=== PATIENT | female | born 1960 | race Two or more races ===

== ENCOUNTER → 2020-10-27 08:35 | Outpatient (BNVA) | payer OTHER, SELFPAY | PROVIDERS: PCP Internal Medicine; Visit Provider Internal Medicine ==

== ENCOUNTER 2020-11-26 07:04 | Outpatient (REF) | payer MEDICARE, SELFPAY | END 2020-11-26 07:05 | disposition home or self-care (01) | LOC: HO.RADIR 07:04 | PROVIDERS: Visit Provider Internal Medicine | DX: Z13.89 Encounter for screening for other disorder (principal) ==

== ENCOUNTER 2020-11-26 12:59 | Day surgery (SDC) | payer MEDICARE, SELFPAY ==
--- NOTE | ~2020-11-26 | FL_ITS ---
EXAMINATION: XR FLUOROSCOPY WITH IMAGES CLINICAL INFORMATION: Epidural steroid injection. COMPARISON: None. TECHNIQUE: Fluoroscopy performed by Dr. Arvind Benitez. Fluoroscopy time: 0.6 minutes DAP: 9.95 mGycm2 Images: 3 FINDINGS: There is needle positioned along the tip of the sacral bone with with opacification of the right L5-S1 epidural space. FL/FL guidance in OR IMPRESSION: Fluoroscopy was provided to referring physician for pain management.
--- NOTE | 2020-11-26 13:16 | HO.ANESPROP2 ---
HPI - Anesthesia Eval Consult details Narrative: 60 yo female patient for epidural steroid injection PMFSH Active Problems Active Problems: All Active Problems (Updated 10/27/20 @ 10:21 by Arvind Diamond MD) Lumbar post-laminectomy syndrome (Acute) MAK on COAP Morbid obesity Diabetes Hypertension On lisinopril for renal protection Anxiety Back pain- difficulty ambulating Right sciatica H/o covid 02/2020 Covid vaccines 05/2020 Past Medical History Medical History (Updated 11/26/20 @ 14:55 by Isabell Barrera MD) Anxiety COVID Diabetes HTN (hypertension) Lumbar post-laminectomy syndrome MAK on CPAP Sleep apnea Family History Family history of problems with anesthesia: No Surgical History History of Problems with Anesthesia: No Social History Social History Patient Tobacco Use Status: Never used Tobacco Use of substances other than those prescribed or required for medical reasons: No Are you DNR?: No Advance Directives: No Advance Directives Information Provided: Yes Advance Directives on File: No Recently lost weight without trying: No Nutrition Risks: No Nutritional Risk Meds Allergies Allergy/AdvReac Type Severity Reaction Status Date / Time metformin AdvReac Severe GI upset Verified 10/27/20 08:44 liraglutide [From Victoza] AdvReac Intermediate GI upset Verified 10/27/20 08:44 Active Medications: Current Medications Lactated Ringer's (Lr) 1,000 mls @ 100 mls/hr IVCONT .Q10H MORRO Home Medications Medication Instructions Recorded Confirmed Last Taken Type gabapentin 300 mg capsule 300 mg PO QID 10/27/20 10/27/20 Unknown History hydrochlorothiazide 25 mg tablet 25 mg PO DAILY 10/27/20 10/27/20 Unknown History ibuprofen 800 mg tablet 800 mg PO Q8H PRN 10/27/20 10/27/20 Unknown History insulin glargine 100 unit/mL 75 unit SUBCUT DAILY ml 10/27/20 10/27/20 Unknown History subcutaneous solution (Lantus U-100 Insulin) insulin lispro 100 unit/mL 15 unit SUBCUT 10/27/20 10/27/20 Unknown History subcutaneous pen (Humalog KwikPen (U-100) Insulin) lisinopril 10 mg tablet 10 mg PO DAILY 10/27/20 10/27/20 Unknown History loratadine 10 mg tablet 10 mg PO DAILY 10/27/20 10/27/20 Unknown History oxycodone 10 mg tablet 10 mg PO QID PRN 10/27/20 10/27/20 Unknown History sertraline 100 mg tablet 100 mg PO DAILY 10/27/20 10/27/20 Unknown History trazodone 100 mg tablet 200 mg PO BEDTIME 10/27/20 10/27/20 Unknown History Exam Exam Date and Time: November 26, 2020 1316 n Height,Weight and Vital Signs: Height 5 ft 4 in Weight 127.006 kg Vital Signs Temp Pulse Resp BP Pulse Ox 97.0 F 66 16 143/63 H 96 11/26/20 13:30 11/26/20 13:30 11/26/20 13:30 11/26/20 13:30 11/26/20 13:30 Pertinent Lab Results Pertinent Lab Results: Lab Results 11/26/20 Range/Units 13:17 POC Glucose 174 H (60-115) mg/dL Airway Mallampati Class: II TM Dist: >3cm Neck ROM: Full Loose/Missing/Broken Teeth: Yes (Missing back) Heart: RRR Lungs: CTAB Assessment and Plan Assessment Anesthesia Assessment: Anesthesia Plan Discussed and Chart Reviewed Final Anesthetic Review Family History of Problems with Anesthesia: No History of Problems with Anesthesia: No NPO: Yes ASA Class: III Final Preanesthetic Review: No Changes in Pt Med Stat, Meds/Allgs Chart Reviewed, Consent Obtained/Reviewed and Anes Risks/Benef Reviewed Patient Risk: Intermediate Procedure Risk: Low Assessment/Block/Sedation in SS: Assess/Block/Sedation-SS Anesthetic Plan Anesthetic Plan: MAC: Disposition: Standard PACU
[2020-11-26 13:20] LABS: Glucose, Whole Blood 174 mg/dL (60-115)
[2020-11-26 13:22] VITALS: BMI 48.0
[2020-11-26 13:30] VITALS: BP 143/63; PULSE 66; RESP 16; TEMP 36.1; O2SAT 96
--- NOTE | 2020-11-26 13:42 | MHC.SHP ---
Pre-Procedural Eval Section A Date of Service: 11/26/20 The patient is an INPATIENT: No The History & Physical has been completed within 30 days and I have reviewed it.: Yes Section B Chief Complaint: postlaminectomy syndrome Relevant Family History (Specify if Yes): No Present Medications: see Short Stay Collaborative assessment Allergies: Allergies Allergy/AdvReac Type Severity Reaction Status Date / Time metformin AdvReac Severe GI upset Verified 10/27/20 08:44 liraglutide [From Victoza] AdvReac Intermediate GI upset Verified 10/27/20 08:44 Plan Diagnosis/Plan: Unchanged I have reviewed the history and physical and performed a pertinent. physical examination on my patient. No changes have occurred unless specified. Proceed with caudal epidural steroid injection with catheter.
--- NOTE | 2020-11-26 13:56 | P.OP_ITS ---
Operative Note Operative Note Date of Service: 11/26/20 Narrative: Caudal JAKE with catheter After obtaining written consent, pre-procedure blood pressure and pulse were measured. Standard monitors were applied. The patient was placed in the prone position sedated under MAC. The lumbosacral area was widely prepped with chloraprep and draped in sterile fashion. The skin overlying the target was anesthetized with 0.5% lidocaine. A 17 G needle was used to access the caudal ep idural space using anatomic landmarks and x-ray guidance. We then threaded a catheter up to the L5/S1 level and injected contrast 1cc omnipaque 180 for verification of epidural spread, primarily on the right as intended. Following negative aspiration of heme or CSF, a mixture of 5 ml 0.5% lidocaine with 80 mg methylprednisolone was injected very slowly into the epidural space. Patient discomfort noted during injection but able to deliver the complete injectate. The needle was removed, skin cleansed and a sterile bandage was applied. The patient tolerated the procedure well and no complications were encountered. Following the procedure the patient was awakeend and patient's vital signs were stable. She was brought to PACU in stable condition. The patient was discharged home in good condition with post-procedural instructions. Time Out: Immediately prior to the procedure, the following was verbally confirmed that there is a signed consent form and that the correct patient, planned procedure, site and side are consistent with documentation and that necessary equipment and/or blood products are available prior to the start of the case. Complications: none EBL: <5 cc
--- NOTE | 2020-11-26 13:56 | PM.OP ---
Brief Operative Note Date of Service: 11/26/20 Pre-op diagnosis: Post-laminectomy syndrome Post-op diagnosis: same Procedure: Caudal epidural catheter injection with catheter Surgeon: Arvind Diamond MD Anesthesia: MAC Was an Nursing Home Assistant Administrator used for this Procedure?: No Estimated blood loss (mL): 1 Condition: stable Disposition: PACU
[2020-11-26] MEDS: Lactated Ringers 1,000 ML 100 ML IVCONT (13:59)
[2020-11-26 14:40] VITALS: BP 151/61; PULSE 71; RESP 20; TEMP 36.2; O2SAT 97
[2020-11-26 14:55] VITALS: BP 154/50; PULSE 68; RESP 20; O2SAT 96
[2020-11-26 15:10] VITALS: BP 137/45; PULSE 66; RESP 22; O2SAT 97
[2020-11-26 15:25] VITALS: BP 121/59; PULSE 62; RESP 20; O2SAT 96
[2020-11-26] MEDS: oxyCODONE HCl Immed Release 5 MG TABLET 10 MG PO (15:39)
[2020-11-26] MEDS: Acetaminophen 325 MG TABLET 650 MG PO (15:40)
--- NOTE | 2020-11-26 15:46 | PC.NURSE ---
Pt assisted to chair, getting dressed with plan to go home Increased pain to right posterior to right lateral and posterior knee Medicated for pain with oxycodone and tylenol, see MAR
== END 2020-11-26 16:05 | disposition home or self-care (01) ==
PROVIDERS: PCP Internal Medicine; Visit Provider Internal Medicine
PROC: 3E0R33Z Introduction of Anti-inflammatory into Spinal Canal, Percutaneous Approach (ICD-10-PCS; CPT 62323; principal; 2020-11-26 14:50)
DX: M96.1 Postlaminectomy syndrome, not elsewhere classified (principal); E11.9 Type 2 diabetes mellitus without complications; Z79.4 Long term (current) use of insulin
CPT/HCPCS: 62323; 82947; J1040; J2250; J3010; Q9967

== ENCOUNTER → 2021-01-02 11:25 | Outpatient (BNVA) | payer MEDICARE, SELFPAY | PROVIDERS: PCP Internal Medicine; Visit Provider Internal Medicine | DX: M96.1 Postlaminectomy syndrome, not elsewhere classified (principal) | CPT/HCPCS: 99212 ==

== ENCOUNTER 2021-01-28 12:31 | Day surgery (SDC) | payer MEDICARE, SELFPAY ==
--- NOTE | 2021-01-27 09:04 | P.CONAN_ITS ---
Documented by User: Remedios Klein NP 01/27/21 09:04 HPI - Anesthesia Eval Consult details Narrative: 60yo F for Caudal Epidural Steroid Injection with Catheter s/p epidural injection 11/2020 with MAC PMFSH Active Problems Active Problems: All Active Problems (Updated 11/26/20 @ 14:55 by Isabell Barrera MD) Lumbar post-laminectomy syndrome (Acute) Past Medical History Medical History (Updated 11/26/20 @ 14:55 by Isabell Barrera MD) Anxiety COVID Diabetes HTN (hypertension) Lumbar post-laminectomy syndrome MAK on CPAP Sleep apnea Family History Family history of problems with anesthesia: No Surgical History History of Problems with Anesthesia: No Social History Social History Patient Tobacco Use Status: Never used Tobacco Use of substances other than those prescribed or required for medical reasons: No Are you DNR?: No Advance Directives: No Advance Directives Information Provided: Yes Meds Allergies Allergy/AdvReac Type Severity Reaction Status Date / Time metformin AdvReac Severe GI upset Verified 01/02/21 11:33 liraglutide [From Victoza] AdvReac Intermediate GI upset Verified 01/02/21 11:33 Home Medications Medication Instructions Recorded Confirmed Last Taken Type gabapentin 300 mg capsule 300 mg PO QID 10/27/20 10/27/20 Unknown History hydrochlorothiazide 25 mg tablet 25 mg PO DAILY 10/27/20 10/27/20 Unknown History ibuprofen 800 mg tablet 800 mg PO Q8H PRN 10/27/20 10/27/20 Unknown History insulin glargine 100 unit/mL 75 unit SUBCUT DAILY ml 10/27/20 10/27/20 Unknown History subcutaneous solution (Lantus U-100 Insulin) insulin lispro 100 unit/mL 15 unit SUBCUT 10/27/20 10/27/20 Unknown History subcutaneous pen (Humalog KwikPen (U-100) Insulin) lisinopril 10 mg tablet 10 mg PO DAILY 10/27/20 10/27/20 Unknown History loratadine 10 mg tablet 10 mg PO DAILY 10/27/20 10/27/20 Unknown History oxycodone 10 mg tablet 10 mg PO QID PRN 10/27/20 10/27/20 11/26/20 11:00 History sertraline 100 mg tablet 100 mg PO DAILY 10/27/20 10/27/20 Unknown History trazodone 100 mg tablet 200 mg PO BEDTIME 10/27/20 10/27/20 Unknown History Exam Exam Date and Time: January 27, 2021 0904 Assessment and Plan Assessment Anesthesia Assessment: Chart Reviewed Final Anesthetic Review Family History of Problems with Anesthesia: No History of Problems with Anesthesia: No Documented by User: Magaly Walker MD 01/28/21 13:01 [facility] Past Medical History Medical History (Updated 11/26/20 @ 14:55 by Isabell Barrera MD) Anxiety COVID Diabetes HTN (hypertension) Lumbar post-laminectomy syndrome MAK on CPAP Sleep apnea Social History Social History Patient Tobacco Use Status: Never used Tobacco Use of substances other than those prescribed or required for medical reasons: No Are you DNR?: No Advance Directives: No Advance Directives Information Provided: Yes Meds Allergies Allergy/AdvReac Type Severity Reaction Status Date / Time metformin AdvReac Severe GI upset Verified 01/02/21 11:33 liraglutide [From Victoza] AdvReac Intermediate GI upset Verified 01/02/21 11:33 Home Medications Medication Instructions Recorded Confirmed Last Taken Type gabapentin 300 mg capsule 300 mg PO QID 10/27/20 10/27/20 Unknown History hydrochlorothiazide 25 mg tablet 25 mg PO DAILY 10/27/20 10/27/20 Unknown History ibuprofen 800 mg tablet 800 mg PO Q8H PRN 10/27/20 10/27/20 Unknown History insulin glargine 100 unit/mL 75 unit SUBCUT DAILY ml 10/27/20 10/27/20 Unknown History subcutaneous solution (Lantus U-100 Insulin) insulin lispro 100 unit/mL 15 unit SUBCUT 10/27/20 10/27/20 Unknown History subcutaneous pen (Humalog KwikPen (U-100) Insulin) lisinopril 10 mg tablet 10 mg PO DAILY 10/27/20 10/27/20 Unknown History loratadine 10 mg tablet 10 mg PO DAILY 10/27/20 10/27/20 Unknown History oxycodone 10 mg tablet 10 mg PO QID PRN 10/27/20 10/27/20 11/26/20 11:00 History sertraline 100 mg tablet 100 mg PO DAILY 10/27/20 10/27/20 Unknown History trazodone 100 mg tablet 200 mg PO BEDTIME 10/27/20 10/27/20 Unknown History Exam Airway Mallampati Class: III TM Dist: >3cm Neck ROM: Full Heart: rrr Lungs: cta Assessment and Plan Assessment Anesthesia Assessment: Anesthesia Plan Discussed and Chart Reviewed Final Anesthetic Review NPO: Yes ASA Class: III Final Preanesthetic Review: No Changes in Pt Med Stat, Meds/Allgs Chart Reviewed and Consent Obtained/Reviewed Patient Risk: Intermediate Procedure Risk: Intermediate Anesthetic Plan Anesthetic Plan: MAC: Disposition: Standard PACU
[2021-01-28] VITALS (7 sets, daily range): BP systolic 141–168; BP diastolic 39–70; PULSE 56–69; RESP 16–20; TEMP 36.4–37.4; O2SAT 95–100; BMI 48.9
--- NOTE | ~2021-01-28 | FL_ITS ---
EXAMINATION: XR FLUOROSCOPY WITH IMAGES CLINICAL INFORMATION: Caudal epidural with catheter. COMPARISON: Fluoroscopy with images 11/26/2020 TECHNIQUE: Fluoroscopy performed by Dr. Diamond. Fluoroscopy time: 0.5 minutes DAP: 7.25 mGycm2 Images: 1 FINDINGS: There is a catheter is suggested overlying the sacral spinal canal with epidural contrast at the lumbosacral junction. No visible vascular communication. Again, there are changes from prior fusion with bilateral rodding and pedicle screws and intradiscal spacer L4-L5. FL/FL guidance in OR IMPRESSION: Fluoroscopy for pain management procedure.
[2021-01-28 12:56] LABS: Glucose, Whole Blood 181 mg/dL (60-115)
[2021-01-28] MEDS: Lactated Ringers 1,000 ML 100 ML IVCONT (13:29)
--- NOTE | 2021-01-28 15:33 | MHC.SHP ---
Pre-Procedural Eval Section A Date of Service: 01/28/21 The patient is an INPATIENT: No Changes since office visit: Yes Patient answered all questions The History & Physical has been completed within 30 days and I have reviewed it.: No Section B Chief Complaint: Postlaminectomy Syndrome Relevant Family History (Specify if Yes): No Relevant Social History: None Present Medications: see Short Stay Collaborative assessment Medical History: Significant History History of Previous Operations: Relevant previous surgery/procedure and date(s) (Spinal fusion) Allergies: Allergies Allergy/AdvReac Type Severity Reaction Status Date / Time metformin AdvReac Severe GI upset Verified 01/28/21 13:29 liraglutide [From Victoza] AdvReac Intermediate GI upset Verified 01/28/21 13:29 Plan Diagnosis/Plan: Unchanged I have reviewed the history and physical and performed a pertinent physical examination on my patient. No changes have occurred unless specified.
--- NOTE | 2021-01-28 15:34 | P.BOP_ITS ---
Brief Operative Note Date of Service: 01/28/21 Pre-op diagnosis: Post-laminectomy syndrome Post-op diagnosis: same Procedure: Caudal epidural steroid injection with catheter Surgeon: Arvind Diamond MD Anesthesia: MAC Was an Clinical Documentation Specialist used for this Procedure?: No Estimated blood loss (mL): 2 Pathology: none sent Condition: stable Disposition: PACU
--- NOTE | 2021-01-28 15:34 | P.OP_ITS ---
Operative Note Operative Note Date of Service: 01/28/21 Narrative: Caudal JAKE with catheter After obtaining written consent, pre-procedure blood pressure and pulse were measured. Standard monitors were applied. The patient was placed in the prone position sedated under MAC. The lumbosacral area was widely prepped with chloraprep and draped in sterile fashion. The skin overlying the target was anesthetized with 0.5% lidocaine. A 17 G needle was used to access the caudal ep idural space using anatomic landmarks and x-ray guidance. We then threaded a catheter up to the L5/S1 level and injected contrast 1cc omnipaque 180 for verification of epidural spread, primarily on the right as intended. Following negative aspiration of heme or CSF, a mixture of 5 ml 0.5% lidocaine with 80 mg methylprednisolone was injected very slowly into the epidural space. Patient discomfort noted during injection but able to deliver the complete injectate. The needle was removed, skin cleansed and a sterile bandage was applied. The patient tolerated the procedure well and no complications were encountered. Following the procedure the patient was awakeend and patient's vital signs were stable. She was brought to PACU in stable condition. The patient was discharged home in good condition with post-procedural instructions. Time Out: Immediately prior to the procedure, the following was verbally confirmed that there is a signed consent form and that the correct patient, planned procedure, site and side are consistent with documentation and that necessary equipment and/or blood products are available prior to the start of the case. Complications: none EBL: <5 cc
[2021-01-28] MEDS: oxyCODONE HCl Immed Release 5 MG TABLET PO ×2 (15:46→16:19)
[2021-01-28] MEDS: fentaNYL citrate/PF 100 MCG/2 ML VIAL 50 MCG IVPUSH (15:48)
== END 2021-01-28 17:00 | disposition home or self-care (01) ==
PROVIDERS: PCP Internal Medicine; Visit Provider Internal Medicine
PROC: 3E0R3GC Introduction of Other Therapeutic Substance into Spinal Canal, Percutaneous Approach (ICD-10-PCS; CPT 62322; principal; 2021-01-28 14:10)
DX: M54.50 Low back pain, unspecified (principal); M96.1 Postlaminectomy syndrome, not elsewhere classified; I10 Essential (primary) hypertension; E11.9 Type 2 diabetes mellitus without complications; F41.1 Generalized anxiety disorder; G47.33 Obstructive sleep apnea (adult) (pediatric); Z79.4 Long term (current) use of insulin; Z79.899 Other long term (current) drug therapy; Z88.1 Allergy status to other antibiotic agents; Z86.16 Personal history of COVID-19
CPT/HCPCS: 62323; 82947; J1040; J2405; J3010; Q9967

== ENCOUNTER → 2021-03-09 08:07 | Outpatient (BNVA) | payer MEDICARE, SELFPAY | PROVIDERS: PCP Internal Medicine; Visit Provider Internal Medicine | DX: M96.1 Postlaminectomy syndrome, not elsewhere classified (principal) | CPT/HCPCS: 99212 ==

== ENCOUNTER 2021-05-13 06:10 | Outpatient (REF) | payer MEDICARE, SELFPAY ==
--- NOTE | ~2021-05-13 | FL_ITS ---
EXAMINATION: XR FLUOROSCOPY WITH IMAGES CLINICAL INFORMATION: Postlaminectomy syndrome COMPARISON: None. TECHNIQUE: Fluoroscopy performed by Dr. Janie Mendoza Fluoroscopy time: 5.5 minutes DAP: 33.1 Gycm2 Images: 2 FINDINGS: 2 fluoroscopic images of the lower thoracic spine with spinal stimulator in place. FL/FL guidance in treatment room IMPRESSION: Spinal stimulator placement. Please see operative report for further information.
== END 2021-05-13 06:11 | disposition home or self-care (01) ==
LOC: HO.RADIR 06:10
PROVIDERS: Visit Provider Internal Medicine
DX: M96.1 Postlaminectomy syndrome, not elsewhere classified (principal)
CPT/HCPCS: 63650; C1897; J0690

== ENCOUNTER → 2021-05-13 10:00 | Day surgery (SDC) | payer MEDICARE, SELFPAY | PROVIDERS: Visit Provider Internal Medicine | DX: M96.1 Postlaminectomy syndrome, not elsewhere classified (principal); Z53.9 Procedure and treatment not carried out, unspecified reason | CPT/HCPCS: C1816; C1897 ==

== ENCOUNTER → 2021-05-18 15:05 | Outpatient (BNVA) | payer MEDICARE, SELFPAY | PROVIDERS: PCP Internal Medicine; Visit Provider Anesthesiology | DX: Z13.89 Encounter for screening for other disorder (principal) ==

== ENCOUNTER 2021-07-29 10:48 | Day surgery (SDC) | payer MEDICARE, SELFPAY ==
[2021-07-23 11:27] VITALS: BMI 49.2
[2021-07-23 13:52] VITALS: BMI 48.9
--- NOTE | 2021-07-28 08:46 | HO.ANESPROP2 ---
Documented by User: Remedios Klein NP 07/28/21 08:47 HPI - Anesthesia Eval Consult details Narrative: 60yo F for Lumbar Spinal Stimulation Implant s/p caudal steroid injection 01/2021 with MAC PMFSH Active Problems Active Problems: All Active Problems (Updated 07/23/21 @ 13:57 by Gila Reyez, RN) Lumbar post-laminectomy syndrome (Acute) Past Medical History Medical History Anxiety Arthritis Back pain COVID Diabetes HTN (hypertension) Insomnia Lumbar post-laminectomy syndrome MAK on CPAP Sleep apnea Use of cane as ambulatory aid Family History Family History (Updated 07/23/21 @ 13:56 by Gila Reyez, MARIAM) Mother PONV (postoperative nausea and vomiting) Family history of problems with anesthesia: No Surgical History Surgical History History of back surgery History of total right knee replacement Hx of colonoscopy Hx of tubal ligation History of Problems with Anesthesia: No Social History Social History Patient Tobacco Use Status: Never used Tobacco Use of substances other than those prescribed or required for medical reasons: No Are you DNR?: No Advance Directives: No Advance Directives Information Provided: Yes Advance Directives on File: No Meds Allergies Allergy/AdvReac Type Severity Reaction Status Date / Time metformin AdvReac Severe GI upset Verified 07/29/21 11:15 liraglutide [From Victoza] AdvReac Intermediate GI upset Verified 07/29/21 11:15 Home Medications Medication Instructions Recorded Confirmed Last Taken Type gabapentin 300 mg capsule 300 mg PO QID 10/27/20 07/23/21 01/28/21 09:00 History hydrochlorothiazide 25 mg tablet 25 mg PO DAILY 10/27/20 07/23/21 Unknown History ibuprofen 800 mg tablet 800 mg PO Q8H PRN 10/27/20 07/23/21 07/26/21 History insulin glargine 100 unit/mL 76 unit SUBCUT BEDTIME ml 10/27/20 07/23/21 01/27/21 19:00 History subcutaneous solution (Lantus 76 units U-100 Insulin) insulin lispro 100 unit/mL 15 unit SUBCUT 10/27/20 03/09/21 Unknown History subcutaneous pen (Humalog KwikPen (U-100) Insulin) lisinopril 10 mg tablet 10 mg PO DAILY 10/27/20 07/23/21 Unknown History loratadine 10 mg tablet 10 mg PO DAILY 10/27/20 07/23/21 Unknown History oxycodone 10 mg tablet 10 mg PO QID PRN 10/27/20 07/23/21 07/29/21 08:00 History sertraline 100 mg tablet 100 mg PO DAILY 10/27/20 07/23/21 Unknown History trazodone 100 mg tablet 200 mg PO BEDTIME 10/27/20 07/23/21 Unknown History Exam Exam Date and Time: July 28, 2021 0846 Height,Weight and Vital Signs: Height 5 ft 4 in Weight 129.274 kg Assessment and Plan Assessment Anesthesia Assessment: Chart Reviewed Final Anesthetic Review Family History of Problems with Anesthesia: No History of Problems with Anesthesia: No Documented by User: Magaly Walker MD 07/29/21 12:39 PMFSH Past Medical History Medical History Anxiety Arthritis Back pain COVID Diabetes HTN (hypertension) Insomnia Lumbar post-laminectomy syndrome MAK on CPAP Sleep apnea Use of cane as ambulatory aid Family History Family History (Updated 07/23/21 @ 13:56 by Gila Reyez RN) Mother PONV (postoperative nausea and vomiting) Surgical History Surgical History History of back surgery History of total right knee replacement Hx of colonoscopy Hx of tubal ligation Social History Social History Patient Tobacco Use Status: Never used Tobacco Use of substances other than those prescribed or required for medical reasons: No Are you DNR?: No Advance Directives: No Advance Directives Information Provided: Yes Advance Directives on File: No Meds Allergies Allergy/AdvReac Type Severity Reaction Status Date / Time metformin AdvReac Severe GI upset Verified 07/29/21 11:15 liraglutide [From Victoza] AdvReac Intermediate GI upset Verified 07/29/21 11:15 Home Medications Medication Instructions Recorded Confirmed Last Taken Type gabapentin 300 mg capsule 300 mg PO QID 10/27/20 07/23/21 01/28/21 09:00 History hydrochlorothiazide 25 mg tablet 25 mg PO DAILY 10/27/20 07/23/21 Unknown History ibuprofen 800 mg tablet 800 mg PO Q8H PRN 10/27/20 07/23/21 07/26/21 History insulin glargine 100 unit/mL 76 unit SUBCUT BEDTIME ml 10/27/20 07/23/21 01/27/21 19:00 History subcutaneous solution (Lantus 76 units U-100 Insulin) insulin lispro 100 unit/mL 15 unit SUBCUT 10/27/20 03/09/21 Unknown History subcutaneous pen (Humalog KwikPen (U-100) Insulin) lisinopril 10 mg tablet 10 mg PO DAILY 10/27/20 07/23/21 Unknown History loratadine 10 mg tablet 10 mg PO DAILY 10/27/20 07/23/21 Unknown History oxycodone 10 mg tablet 10 mg PO QID PRN 10/27/20 07/23/21 07/29/21 08:00 History sertraline 100 mg tablet 100 mg PO DAILY 10/27/20 07/23/21 Unknown History trazodone 100 mg tablet 200 mg PO BEDTIME 10/27/20 07/23/21 Unknown History Exam Airway Mallampati Class: III (Missing a coupke nothing loose) TM Dist: >3cm Neck ROM: Full Heart: rrr Lungs: cta Assessment and Plan Assessment Anesthesia Assessment: Anesthesia Plan Discussed and Chart Reviewed Final Anesthetic Review NPO: Yes ASA Class: III Final Preanesthetic Review: No Changes in Pt Med Stat, Meds/Allgs Chart Reviewed and Consent Obtained/Reviewed Patient Risk: Intermediate Procedure Risk: Intermediate Anesthetic Plan Anesthetic Plan: MAC: Disposition: Standard PACU
--- NOTE | ~2021-07-29 | FL_ITS ---
EXAMINATION: XR FLUOROSCOPY WITH IMAGES CLINICAL INFORMATION: Spinal stimulator implant COMPARISON: Fluoroscopic spot views spine 05/13/2021 TECHNIQUE: Fluoroscopy performed by Dr. Diamond. Fluoroscopy time: 9.6 minutes. DAP: 46.1 Gycm2 Images: 2 FINDINGS: There are 2 spinal stimulator electrodes seen ascending the posterior spinal canal. The electrode tips are at level of mid thoracic spine, approximately levels of superior endplate T8 and inferior endplate T8, respectively. There is no visible kinking or defect of the leads. There are degenerative changes with mild disc narrowing and multilevel anterior and right lateral bridging osteophytes. FL/FL guidance in OR IMPRESSION: Fluoroscopy for pain management procedure.
[2021-07-29 11:38] VITALS: BP 115/44; PULSE 69; RESP 17; TEMP 36.5; O2SAT 98
[2021-07-29 11:50] LABS: Glucose, Whole Blood 226 mg/dL (60-115)
--- NOTE | 2021-07-29 12:31 | MHC.SHP ---
Pre-Procedural Eval Section A Date of Service: 07/29/21 The patient is an INPATIENT: No Changes since office visit: Yes Patient answered all questions The History & Physical has been completed within 30 days and I have reviewed it.: No Section B Chief Complaint: Postlaminectomy syndrome, Present Medications: see Short Stay Collaborative assessment Medical History: Significant History (failed back surgery) Allergies: Allergies Allergy/AdvReac Type Severity Reaction Status Date / Time metformin AdvReac Severe GI upset Verified 07/29/21 11:15 liraglutide [From Victoza] AdvReac Intermediate GI upset Verified 07/29/21 11:15 Review of Systems Sugical H&P ROS: Negative: Constitution, Cardiovascular, Respiratory and Neurological Plan Diagnosis/Plan: Unchanged I have reviewed the history and physical and performed a pertinent physical examination on my patient. No changes have occurred unless specified.
[2021-07-29 16:52] VITALS: BP 133/48; PULSE 74; RESP 16; TEMP 37.4; O2SAT 95
--- NOTE | 2021-07-29 16:53 | P.BOP_ITS ---
Brief Operative Note Date of Service: 07/29/21 Pre-op diagnosis: Post-laminectomy syndrome Post-op diagnosis: same Procedure: Lumbar spinal cord stimulator implant Implants: Lumbar spinal cord stimulator leads [employer] system Surgeon: Arvind Diamond MD Anesthesia: MAC Was an Surgical Supplies Sterilizer used for this Procedure?: No Estimated blood loss (mL): 10 Pathology: none sent Condition: stable Disposition: PACU
--- NOTE | 2021-07-29 16:53 | W.PM.OPN ---
Operative Note Operative Note Date of Service: 07/29/21 Narrative: Lumbar SCS Implant - StimWave After proper identification, the patient was brought to the operating room. After prone positioning, patient was sedated under anesthesia. Care was taken during positioning to protect and pad all pressure points. Cefazolin 3gm was given as preoperative antibiotic prophylaxis. The back was prepped and draped in the usual sterile fashion using Chloroprep. The fluoroscope unit was sterilely draped and brought into field, the vertebral target and the T12/L1 interspace was localized with fluoroscopy after the skin was anesthetized with 0.5% ropivicaine and 2% lidocaine with 1:200,000 epinephrine using a 25-gauge needle. A 6 cm incision was then made in the midline back with a 15 blade between the L1 and L2 spinous processes. Electrocautery was used to dissect down to the prevertebral fascia. Two 14-gauge introducer Tuohy needles were advanced using AP and contralateral oblique fluoroscopy views to the target interspace on either side of the L1 spinous process and advanced into the T12-L1 interspace. Upon loss of resistance, a flexible stylet was advanced and verified to be in the epidural space.? The left electrode was then threaded up to the top of T9 vertebral body. The right electrode was threaded to the top of T8 vertebral body. We then backed out the needles under live fluoroscopy, verifying that the electrodes were in the correct position. The patient was woken up and adequate coverage in the area of right low back and leg pain was confirmed. The patient was then re-sedated. The leads were anchored to the prevertebral fascia using 0 Tycron sutures. At this point, a pocket for the lead loops was made in the midline 3 in away from the original incision. With the skin and subcutaneous tissues anesthetized with 0.5% ropivicaine with 1:200,000 epinephrine and 1% lidocaine, a horizontal 1-inch incision was made using a 15 blade and combination of sharp dissection, blunt dissection and electrocautery was used. A pocket was created about 1 cm below the skin. Hemostasis was attained with electrocautery. We then tunneled the electrodes from the back into the pocket using the Touhy needles. The electrode ends were then tied in to coils and placed in the pocket. The pocket was then irrigated with normal saline containing vancomycin. The original back incision was irrigated with vancomycin solution as well. The back incision was closed with 2-0 continuous, followed by 3-0 interrupted sutures in deep to superficial/superficial to deep fashion. The skin was closed by 4-0 continuous. The pocket incision was closed with 3-0 interrupted sutures in deep to superficial/superficial to deep fashion followed by skin closure by 4-0 continuous as well. The wounds were dressed with Dermabond, Steri-Strips, gauze and Tegaderm. The wireless official court interpreter was placed on top of the dressing for system activation. The patient was then awakened, flipped supine and brought to the PACU in stable condition.
[2021-07-29] MEDS: oxyCODONE HCl Immed Release 5 MG TABLET PO (17:05)
--- NOTE | 2021-07-29 17:06 | PC.NURSE ---
MEDICATED FOR PAIN
[2021-07-29 17:07] VITALS: BP 112/48; PULSE 65; RESP 16; O2SAT 94
[2021-07-29 17:22] VITALS: BP 124/53; PULSE 63; RESP 16; O2SAT 94
[2021-07-29 17:37] VITALS: BP 136/49; PULSE 66; RESP 16; TEMP 36.3; O2SAT 94
--- NOTE | 2021-07-29 18:01 | PC.NURSE ---
PATIENT NEURO STATUS STABLE. MOLINA. NO CHANGES IN NUMBNESS TINGING BASELINE RELATED TO NEUROPATHY DIABETES.
== END 2021-07-29 18:30 | disposition home or self-care (01) ==
PROVIDERS: PCP Internal Medicine; Visit Provider Internal Medicine
PROC: (CPT 63685; principal; 2021-07-29 12:30)
DX: M96.1 Postlaminectomy syndrome, not elsewhere classified (principal); M54.50 Low back pain, unspecified; M43.26 Fusion of spine, lumbar region; F41.1 Generalized anxiety disorder; I10 Essential (primary) hypertension; G47.33 Obstructive sleep apnea (adult) (pediatric); E11.9 Type 2 diabetes mellitus without complications; Z79.4 Long term (current) use of insulin; Z99.89 Dependence on other enabling machines and devices; Z79.899 Other long term (current) drug therapy; Z88.8 Allergy status to other drugs, medicaments and biological substances; Z86.16 Personal history of COVID-19
CPT/HCPCS: 63685; 63650 ×2; 82947; C1816; C1897; J0690; J2250; J2795; J3010; J3370

== ENCOUNTER → 2021-08-04 11:32 | Outpatient (BNVA) | payer MEDICARE, SELFPAY | PROVIDERS: PCP Internal Medicine; Visit Provider Nurse Practitioner Family | DX: M96.1 Postlaminectomy syndrome, not elsewhere classified (principal) | CPT/HCPCS: 99212 ==

== ENCOUNTER → 2021-08-10 11:30 | Outpatient (BNVA) | payer MEDICARE, SELFPAY | PROVIDERS: PCP Internal Medicine; Visit Provider Internal Medicine | DX: M96.1 Postlaminectomy syndrome, not elsewhere classified (principal) | CPT/HCPCS: 99212 ==

== ENCOUNTER → 2021-10-09 10:12 | Outpatient (BNVA) | payer MEDICARE, SELFPAY | PROVIDERS: PCP Internal Medicine; Visit Provider Internal Medicine | DX: M96.1 Postlaminectomy syndrome, not elsewhere classified (principal); W18.39XD Other fall on same level, subsequent encounter; R20.0 Anesthesia of skin | CPT/HCPCS: 99212 ==

== ENCOUNTER 2021-10-20 12:50 | Outpatient (REF) | payer MEDICARE, SELFPAY ==
--- NOTE | ~2021-10-20 | XR_ITS ---
EXAMINATION: XR DORSAL SPINE XR LUMBAR SPINE. CLINICAL INFORMATION: Fall. COMPARISON: None TECHNIQUE: 3 views lumbar spine and 3 views dorsal spine. FINDINGS: DORSAL SPINE: There is normal thoracic kyphosis. The vertebral heights, alignment and disc heights are normal. There is exuberant hypertrophic spurring along the mid and lower dorsal spine. There are posterior epidural 2 electrodes seen in the lower dorsal spine. LUMBAR SPINE: There is maintained lumbar lordosis. There is a disc prosthesis at the L4-L5 disc level stabilized with bilateral L4 and L5 pedicle screws and interconnecting adela. No aggressive lytic or sclerotic process seen. The SI joints are symmetric and normal. Mild spondylosis seen upper lumbar spine. The paravertebral soft tissues are normal. XR/XR lumbar spine 2-3V IMPRESSION: Unremarkable dorsal spine exam. There are posterior epidural 2 electrodes in the lower dorsal spine. L4-L5 disc fusion from prosthesis and posterior hardware. No acute fracture or lytic process. There is mild spondylosis upper lumbar spine.
--- NOTE | ~2021-10-20 | XR_ITS ---
EXAMINATION: XR DORSAL SPINE XR LUMBAR SPINE. CLINICAL INFORMATION: Fall. COMPARISON: None TECHNIQUE: 3 views lumbar spine and 3 views dorsal spine. FINDINGS: DORSAL SPINE: There is normal thoracic kyphosis. The vertebral heights, alignment and disc heights are normal. There is exuberant hypertrophic spurring along the mid and lower dorsal spine. There are posterior epidural 2 electrodes seen in the lower dorsal spine. LUMBAR SPINE: There is maintained lumbar lordosis. There is a disc prosthesis at the L4-L5 disc level stabilized with bilateral L4 and L5 pedicle screws and interconnecting adela. No aggressive lytic or sclerotic process seen. The SI joints are symmetric and normal. Mild spondylosis seen upper lumbar spine. The paravertebral soft tissues are normal. XR/XR thoracic spine 2V IMPRESSION: Unremarkable dorsal spine exam. There are posterior epidural 2 electrodes in the lower dorsal spine. L4-L5 disc fusion from prosthesis and posterior hardware. No acute fracture or lytic process. There is mild spondylosis upper lumbar spine.
== END 2021-10-20 12:51 | disposition home or self-care (01) ==
LOC: HO.XRAY 12:50
PROVIDERS: PCP Internal Medicine; Visit Provider Internal Medicine
DX: M96.1 Postlaminectomy syndrome, not elsewhere classified (principal); W19.XXXA Unspecified fall, initial encounter
CPT/HCPCS: 72070; 72100

== ENCOUNTER 2022-02-04 12:08 | Outpatient (REF) | payer MEDICARE, SELFPAY ==
--- NOTE | 2022-02-04 10:15 | EMG_ITS ---
Right median and ulnar motor and sensory studies were performed. Right radial sensory study was performed and paraspinal muscles were tested with a needle. IMPRESSION: 1. [id number] right median neuropathy across carpal tunnel. 2. Mild right radial sensory neuropathy. MD INDU Webb/ANIBAL / [id number]
== END 2022-02-04 12:09 | disposition home or self-care (01) ==
LOC: HO.NEURO 12:08
PROVIDERS: PCP Internal Medicine; Visit Provider Internal Medicine
DX: R29.898 Other symptoms and signs involving the musculoskeletal system (principal); R20.0 Anesthesia of skin
CPT/HCPCS: 95886; 95909

== ENCOUNTER → 2022-03-26 08:55 | Outpatient (BNVA) | payer MEDICARE, SELFPAY | PROVIDERS: PCP Internal Medicine; Visit Provider Internal Medicine | DX: G56.01 Carpal tunnel syndrome, right upper limb (principal); R20.0 Anesthesia of skin | CPT/HCPCS: 99212 ==

== ENCOUNTER → 2022-04-20 13:45 | Outpatient (BNVA) | payer MEDICARE, SELFPAY | PROVIDERS: PCP Internal Medicine; Visit Provider Orthopaedic Surgery | DX: G56.01 Carpal tunnel syndrome, right upper limb (principal) | CPT/HCPCS: 99202 ==

== ENCOUNTER 2022-05-12 12:34 | Day surgery (SDC) | payer MEDICARE, SELFPAY ==
[2022-05-07 12:24] VITALS: BMI 47.3
--- NOTE | ~2022-05-12 | FL_ITS ---
EXAMINATION: XR FLUOROSCOPY WITH IMAGES CLINICAL INFORMATION: Pain management procedure, caudal JAKE. COMPARISON: Lumbar radiographs 10/20/2021 TECHNIQUE: Fluoroscopy Supervised By: Dr. Arvind Diamond. Fluoroscopy Time: 0.3 minutes. Cumulative Dose: 13.2 mGy. DAP: 2.86 Gycm2. Images: 2. FINDINGS: There is a catheter at the lower sacral hiatus with tip overlying the epidural space. Again, there is fusion hardware and disc spacer lower lumbar spine similar to the plain films 2021. FL/FL guidance in OR IMPRESSION: Fluoroscopy for pain management procedure.
--- NOTE | 2022-05-12 09:50 | HO.ANESPROP2 ---
[facility] Active Problems Active Problems: All Active Problems (Updated 05/07/22 @ 12:24 by Briana Sabillon RN) Fall (Acute) Thumb numbness (Acute) Carpal tunnel syndrome of right wrist (Acute) Lumbar post-laminectomy syndrome (Acute) Past Medical History Medical History (Updated 05/07/22 @ 12:24 by Briana Sabillon RN) Anxiety Arthritis Back pain COVID Diabetes HTN (hypertension) Insomnia Lumbar post-laminectomy syndrome MAK on CPAP Use of cane as ambulatory aid Functional capacity: uses cane/walker Patient : No Family History Family History Mother PONV (postoperative nausea and vomiting) Family history of problems with anesthesia: No Surgical History Surgical History (Updated 05/07/22 @ 12:19 by Briana Sabillon RN) History of back surgery History of total right knee replacement Hx of colonoscopy Hx of tubal ligation S/P placement of nerve stimulator History of Problems with Anesthesia: No Social History Social History (Updated 04/20/22 @ 14:11 by YEHUDA Rodríguez) Patient Tobacco Use Status: Never used Tobacco Current occupational status: disabled 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 Meds Allergies Allergy/AdvReac Type Severity Reaction Status Date / Time metformin AdvReac Severe GI upset Verified 04/20/22 14:10 liraglutide [From Victoza] AdvReac Intermediate GI upset Verified 04/20/22 14:10 Active Medications: Current Medications Lactated Ringer's (Lr) 1,000 mls @ 50 mls/hr IVCONT .Q20H [facility] Home Medications Medication Instructions Recorded Confirmed Last Taken Type gabapentin 300 mg capsule 300 mg PO QID 10/27/20 05/07/22 01/28/21 09:00 History hydrochlorothiazide 25 mg tablet 25 mg PO DAILY 10/27/20 05/07/22 Unknown History ibuprofen 800 mg tablet 800 mg PO Q8H PRN pain 10/27/20 05/07/22 07/26/21 History insulin glargine 100 unit/mL 76 unit subcut BEDTIME 10/27/20 05/07/22 01/27/21 19:00 History subcutaneous solution (Lantus 76 units U-100 Insulin) insulin lispro 100 unit/mL 15 unit subcut 5XD 10/27/20 05/07/22 Unknown History subcutaneous pen (Humalog KwikPen (U-100) Insulin) lisinopril 10 mg tablet 10 mg PO DAILY 10/27/20 05/07/22 Unknown History loratadine 10 mg tablet 10 mg PO DAILY 10/27/20 05/07/22 Unknown History oxycodone 10 mg tablet 10 mg PO QID PRN Back Pain 10/27/20 05/07/22 07/29/21 08:00 History sertraline 100 mg tablet 100 mg PO DAILY 10/27/20 05/07/22 Unknown History trazodone 100 mg tablet 200 mg PO BEDTIME 10/27/20 05/07/22 Unknown History atorvastatin 10 mg tablet 10 mg PO DAILY 10/09/21 05/07/22 Unknown History cholecalciferol (vitamin D3) 25 1,000 unit PO DAILY 04/20/22 05/07/22 Unknown History mcg (1,000 unit) tablet Exam Exam Date and Time: May 12, 2022 0950 Height,Weight and Vital Signs: Height 5 ft 4 in Weight 125.191 kg Assessment and Plan Final Anesthetic Review Family History of Problems with Anesthesia: No History of Problems with Anesthesia: No
[2022-05-12 12:38] VITALS: BP 133/92; PULSE 78; RESP 20; TEMP 36.8; O2SAT 95
[2022-05-12 12:54] LABS: Glucose, Whole Blood 159 mg/dL (60-115)
[2022-05-12] MEDS: Lactated Ringers 1,000 ML 50 ML IVCONT (13:10)
[2022-05-12 15:22] VITALS: BP 123/64; PULSE 90; RESP 18; TEMP 36.8; O2SAT 95
--- NOTE | 2022-05-12 15:33 | P.BOP_ITS ---
Brief Operative Note Date of Service: 05/12/22 Pre-op diagnosis: Lumbar radiculopathy Post-op diagnosis: same Procedure: Caudal epidural steroid injection with catheter Surgeon: Arvind Diamond MD Anesthesia: MAC Was an Purchasing Contracting Clerk used for this Procedure?: No Estimated blood loss (mL): 1 Pathology: none sent Condition: stable Disposition: PACU
--- NOTE | 2022-05-12 15:33 | MHC.SHP ---
Pre-Procedural Eval Section A Date of Service: 05/12/22 The patient is an INPATIENT: No Changes since office visit: Yes Patient answered all questions The History & Physical has been completed within 30 days and I have reviewed it.: No Section B Chief Complaint: Lumbar radiculopathy Relevant Family History (Specify if Yes): No Relevant Social History: Other (specify) Present Medications: see Short Stay Collaborative assessment Medical History: No relevant PMH History of Previous Operations: Relevant previous surgery/procedure and date(s) (lumbar surgery) Allergies: Allergies Allergy/AdvReac Type Severity Reaction Status Date / Time metformin AdvReac Severe GI upset Verified 04/20/22 14:10 liraglutide [From Victoza] AdvReac Intermediate GI upset Verified 04/20/22 14:10 Review of Systems Sugical H&P ROS: Negative: Constitution, Cardiovascular, Respiratory and Neurological Exam Surgical H&P Exam: Normal: HEENT, Normal: Heart and Normal: Lungs Plan Diagnosis/Plan: Unchanged I have reviewed the history and physical and performed a pertinent physical examination on my patient. No changes have occurred unless specified. Time Spent With Patient Time: Total time managing care of this patient today ____ minutes.
--- NOTE | 2022-05-12 15:34 | W.PM.OPN ---
Operative Note Operative Note Date of Service: 05/12/22 Narrative: Caudal JAKE with catheter After obtaining written consent, pre-procedure blood pressure and pulse were measured. Standard monitors were applied. The patient was placed in the prone position and sedated by the regulator pin inserter. The lumbosacral area was widely prepped with chloraprep and draped in sterile fashion. The skin overlying the target was anesthetized with 0.5% lidocaine. A 17 G needle was used to access the caudal epidural space using anatomic landmarks and x-ray guidance. We then threaded a catheter up to the L5/S1 level and injected contrast 1cc omnipaque 180 for verification of epidural spread. Following negative aspiration of heme or CSF, a mixture of 5 ml 0.5% lidocaine with 80 mg methylprednisolone was injected with minimal pressure into the epidural space. The needle was removed, skin cleansed and a sterile bandage was applied. The patient tolerated the procedure well and no complications were encountered. Following the procedure the patient's vital signs were stable. The patient was discharged home in good condition with post-procedural instructions. Time Out: Immediately prior to the procedure, the following was verbally confirmed that there is a signed consent form and that the correct patient, planned procedure, site and side are consistent with documentation and that necessary equipment and/or blood products are available prior to the start of the case. Complications: none EBL: <5 cc
[2022-05-12 15:37] VITALS: BP 129/56; PULSE 72; RESP 16; O2SAT 95
[2022-05-12 15:52] VITALS: BP 125/42; PULSE 67; RESP 16; O2SAT 95
[2022-05-12 16:05] VITALS: BP 128/46; PULSE 69; RESP 16; TEMP 36.5; O2SAT 95
--- NOTE | 2022-05-12 16:48 | PC.NURSE ---
PATIENT COMPLAINTS OF 7/10 SCIATICA LOWER BACK AND RIGHT LEG PAIN. DR. RODARTE AWARE NO NEW PACU ORDERS FOR PAIN IN CONTROL. TO OBTAIN NEW ORDERS
--- NOTE | 2022-05-12 17:01 | PC.NURSE ---
PATIENT REPORTS PREFERENCE TO DISCHARGE TO HOME HER RIDE IS HERE AND PATIENT WILL TAKE HOME PAIN MEDICATION.
== END 2022-05-12 17:03 | disposition home or self-care (01) ==
PROVIDERS: PCP Internal Medicine; Visit Provider Internal Medicine
PROC: 3E0R33Z Introduction of Anti-inflammatory into Spinal Canal, Percutaneous Approach (ICD-10-PCS; CPT 62323; principal; 2022-05-12 14:10)
DX: M96.1 Postlaminectomy syndrome, not elsewhere classified (principal); M54.16 Radiculopathy, lumbar region; M79.661 Pain in right lower leg; M54.9 Dorsalgia, unspecified; I10 Essential (primary) hypertension; E11.9 Type 2 diabetes mellitus without complications; G47.33 Obstructive sleep apnea (adult) (pediatric); F41.1 Generalized anxiety disorder; R20.0 Anesthesia of skin; Z79.4 Long term (current) use of insulin; Z79.1 Long term (current) use of non-steroidal anti-inflammatories (NSAID); Z79.899 Other long term (current) drug therapy; Z99.89 Dependence on other enabling machines and devices; Z88.8 Allergy status to other drugs, medicaments and biological substances; Z96.651 Presence of right artificial knee joint; Z86.16 Personal history of COVID-19
CPT/HCPCS: 62323; 82947; J1040; J2250

== ENCOUNTER 2022-05-17 08:10 | Day surgery (SDC) | payer MEDICARE, SELFPAY ==
[2022-05-17 09:06] VITALS: BP 162/71; PULSE 71; RESP 17; TEMP 36.4; O2SAT 97; BMI 48.0
--- NOTE | 2022-05-17 09:54 | MHC.SHP ---
Pre-Procedural Eval Section A Date of Service: 05/17/22 The patient is an INPATIENT: No Changes since office visit: No Cold of Flu in the past 2 weeks, No New Medical Problems, No Changes in Medication and No Patient answered all questions The History & Physical has been completed within 30 days and I have reviewed it.: Yes Section B Chief Complaint: Carpal tunnel syndrome, right upper limb Allergies: Allergies Allergy/AdvReac Type Severity Reaction Status Date / Time metformin AdvReac Severe GI upset Verified 04/20/22 14:10 liraglutide [From Victoza] AdvReac Intermediate GI upset Verified 04/20/22 14:10 Plan I have reviewed the history and physical and performed a pertinent physical examination on my patient. No changes have occurred unless specified. Time Spent With Patient Time: Total time managing care of this patient today ____ minutes.
--- NOTE | 2022-05-17 09:54 | W.PM.OPN ---
Operative Note Operative Note Date of Service: 05/17/22 Narrative: Preop diagnosis: 1. Right Carpal tunnel syndrome Postop diagnosis: same Procedure: 1. Right Carpal tunnel release Surgeon: Shalini Perez MD Anesthesia: local block using 1% lidocaine with epinephrine Findings: Thickened transverse carpal ligament. EBL: Less than 5 mL Specimens: None Complications: None Disposition: Brought to recovery room in stable condition Plan: Follow-up for 10-14 days for wound check and suture removal Indications: The patient is 61 years old, with right carpal tunnel syndrome that has been unresponsive to nonoperative management. The risks and benefits of operative treatment including but not limited to risk of damage to blood vessels, nerves, tendons, infection, persistent pain, persistent symptoms, or possible need for additional surgery were discussed with the patient and the patient wishes to proceed with surgery. Procedure: Once consent was obtained a local block was performed using a combination of 1% lidocaine with epinephrine. The patient was then brought back to the operating suite and placed on the operative table in supine position. The right upper extremity was prepped and draped in a standard surgical fashion. Once assured that we had a good block, a 2.0 cm longitudinal incision was made centered over the carpal tunnel. The incision was made through the skin to the subcutaneous tissues using a #15 blade. Dissection was made down to the level of the transverse carpal ligament with care being taken to protect the palmar cutaneous nerve. Once the transverse carpal ligament was clearly visualized, a longitudinal incision was made in the transverse carpal ligament 1st using a #15 blade, then using tenotomy scissors under direct visualization. Care was taken to look for and protect the motor branch of the median nerve when seen in this area. Patient had some anxiety during the case but tolerated it well. We also had a small amount of lidocaine with epinephrine when she became concerned that she was having some pain during the case. This was immediately relieved by the lidocaine with epinephrine. Once satisfied with our carpal tunnel release the wound was copiously irrigated with normal saline and hemostasis was obtained with a brief period of local pressure. The skin edges were reapproximated with some 5.0 nylon suture material and a sterile dressing was applied. The patient appears to have tolerated the procedure well and with no complications. All digits were well vascularized at the conclusion of the case.
[2022-05-17 10:51] VITALS: BP 160/47; PULSE 69; RESP 20; O2SAT 98
== END 2022-05-17 10:53 | disposition home or self-care (01) ==
PROVIDERS: PCP Internal Medicine; Visit Provider Orthopaedic Surgery
PROC: (CPT 64721; principal; 2022-05-17 10:10)
DX: G56.01 Carpal tunnel syndrome, right upper limb (principal); R20.0 Anesthesia of skin; R20.2 Paresthesia of skin; I10 Essential (primary) hypertension; G47.33 Obstructive sleep apnea (adult) (pediatric); E11.9 Type 2 diabetes mellitus without complications; F41.1 Generalized anxiety disorder; Z99.89 Dependence on other enabling machines and devices; Z88.8 Allergy status to other drugs, medicaments and biological substances; Z86.16 Personal history of COVID-19
CPT/HCPCS: 64721; J0171

== ENCOUNTER → 2022-06-01 12:00 | Outpatient (BNVA) | payer MEDICARE, SELFPAY | PROVIDERS: PCP Internal Medicine; Visit Provider Orthopaedic Surgery | DX: Z47.89 Encounter for other orthopedic aftercare (principal); M65.331 Trigger finger, right middle finger; Z86.69 Personal history of other diseases of the nervous system and sense organs | CPT/HCPCS: 99212 ==

== ENCOUNTER → 2022-06-03 14:04 | Outpatient (BNVA) | payer MEDICARE, SELFPAY | PROVIDERS: PCP Internal Medicine; Visit Provider Physician Assistant ==

== ENCOUNTER → 2022-06-14 10:51 | Outpatient (BNVA) | payer MEDICARE, SELFPAY | PROVIDERS: PCP Internal Medicine; Visit Provider Physician Assistant ==

== ENCOUNTER → 2022-06-28 13:46 | Outpatient (BNVA) | payer MEDICARE, SELFPAY | PROVIDERS: PCP Internal Medicine; Visit Provider Nurse Practitioner Family | DX: G56.01 Carpal tunnel syndrome, right upper limb (principal); M65.331 Trigger finger, right middle finger; M96.1 Postlaminectomy syndrome, not elsewhere classified | CPT/HCPCS: 99212 ==

== ENCOUNTER → 2022-07-14 12:44 | Outpatient (BNVA) | payer MEDICARE, SELFPAY | PROVIDERS: PCP Internal Medicine; Visit Provider Orthopaedic Surgery | DX: Z48.811 Encounter for surgical aftercare following surgery on the nervous system (principal); M65.331 Trigger finger, right middle finger | CPT/HCPCS: 99212 ==

== ENCOUNTER → 2022-08-25 12:08 | Outpatient (BNVA) | payer MEDICARE, SELFPAY | PROVIDERS: PCP Internal Medicine; Visit Provider Orthopaedic Surgery | DX: Z47.89 Encounter for other orthopedic aftercare (principal); M65.331 Trigger finger, right middle finger; Z86.69 Personal history of other diseases of the nervous system and sense organs | CPT/HCPCS: 99212 ==

== ENCOUNTER → 2022-08-26 13:55 | Outpatient (BNVA) | payer MEDICARE, SELFPAY | PROVIDERS: PCP Internal Medicine; Visit Provider Internal Medicine | DX: Z45.42 Encounter for adjustment and management of neurostimulator (principal) | CPT/HCPCS: 99211 ==

== ENCOUNTER → 2022-11-18 10:25 | Outpatient (BNVA) | payer MEDICARE, SELFPAY | PROVIDERS: PCP Internal Medicine; Visit Provider Nurse Practitioner Family ==

== ENCOUNTER 2022-12-10 11:25 | Outpatient (AMB) | payer MEDICARE, SELFPAY ==
--- NOTE | 2022-12-10 11:30 | MHC.OFFVIS ---
Intake Vital Signs 12/10/22 11:33 Height 5 ft 4 in Weight 271 lb 6 oz BMI 46.6 BP 147/68 H Blood Pressure Location Rt brachial Position Sitting Pulse 84 Pulse Source Pulse Oximeter Pulse Oximetry (%) 98 Oxygen Delivery Method Room Air Intake Visit Reasons: Injection Discussion Intake Note: Pain today 09/13 Hoop Rolls Operator Required: No Accompanied by: Self / Same As Patient Allergies metformin Adverse Reaction (Severe, Verified 12/10/22 11:34) GI upset liraglutide [From Victoza] Adverse Reaction (Intermediate, Verified 12/10/22 11:34) GI upset HPI HPI Comments History of Present Illness Details Patient is a 62-year-old female presenting for a follow-up regarding leg pain and injection discussion. Patient reports worsening low back pain that radiates into her right buttock and right leg and is interfering with her ability to walk, stand, ADLs, sleep or even sit as these things exacerbate her pain. Pain is present constantly throughout the day. She has continued to use her SCS implant from mid-day to the next morning which provides some relief. Patient takes breaks from SCS during shower, grocery shopping or medical appointments. She does feel that her pain tends to get worse during the time that her stimulator is off during the day. Patient request to repeat Caudal JAKE injection as she gets this twice yearly and it provides her significant pain relief. Patient reports previous injection provided her 60% pain relief during summer months. Denies any recent cough, cold, infection, fever or other significant changes in medical history since last office visit. Patient denies any bladder or bowel incontinence or saddle anesthesia. Past Procedures: 05/12/22: Caudal JAKE with catheter-25% pain relief for 1st month, 60% pain relief July-November. 07/29/21: Stimwave Lumbar SCS Implant ? At least 50% relief. 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 Alert and oriented. Mood and affect appropriate. Follows and participates in conversation appropriately. Respiratory effort is unlabored. No cough. Able to transition from sit to stand unassisted. Antalgic gait, ambulates with use of cane. Back/Spine/Pelvis Cervical Spine: cervical ROM normal and No Cervical spine tenderness Thoracic/Lumbar Spine: thoracic and lumbar spine normal to inspection, Lasegue's sign positive on the right and localized, pain with thoraco-lumbar ROM, paraspinal muscle tenderness on the right greater than left, No thoraco-lumbar ROM limited, No thoracic spinal tenderness, No lumbar spinal tenderness and straight leg raise positive right at 40 degrees Pelvis: buttock tenderness on the right Results Reviewed Results Reviewed: XR DORSAL SPINE XR LUMBAR SPINE 10/20/21 CLINICAL INFORMATION: Fall. FINDINGS: DORSAL SPINE: There is normal thoracic kyphosis. The vertebral heights, alignment and disc heights are normal. There is exuberant hypertrophic spurring along the mid and lower dorsal spine. There are posterior epidural 2 electrodes seen in the lower dorsal spine. LUMBAR SPINE: There is maintained lumbar lordosis. There is a disc prosthesis at the L4-L5 disc level stabilized with bilateral L4 and L5 pedicle screws and interconnecting adela. No aggressive lytic or sclerotic process seen. The SI joints are symmetric and normal. Mild spondylosis seen upper lumbar spine. The paravertebral soft tissues are normal. IMPRESSION: Unremarkable dorsal spine exam. There are posterior epidural 2 electrodes in the lower dorsal spine. L4-L5 disc fusion from prosthesis and posterior hardware. No acute fracture or lytic process. There is mild spondylosis upper lumbar spine. Assessment & Plan Assessment & Plan (1) Lumbar post-laminectomy syndrome: Comment: Status post L4-5 laminectomy/fusion Status post lumbar SCS (Stimwave) Code(s): M96.1 - Postlaminectomy syndrome, not elsewhere classified (2) Lumbar radiculopathy, right: Code(s): M54.16 - Radiculopathy, lumbar region Plan Schedule Caudal JAKE with catheter with sedation and fluoroscopy for right sided radicular leg pain and post laminectomy syndrome. Patient is aware she will be contacted to schedule this procedure. All questions were answered and the patient is in agreement of plan. Follow-up after injections and sooner as needed. Justification for interventional therapy: ? Patient with average pain > 6/10 ? Patient has exhausted conservative therapy The risks, consequences, alternatives, and benefits of various treatment options were discussed with the patient in great detail, including conservative management, injections and procedures. Patient is aware of hyperglycemic effects of steroids. Reports most recent A1C was 6.8. Coding Level of Care Code Est Pt Level 4 (26175) Diagnoses Lumbar post-laminectomy syndrome M96.1 Lumbar radiculopathy, right M54.16
[2022-12-10 11:33] VITALS: BP 147/68; PULSE 84; O2SAT 98; BMI 46.6
== END 2022-12-10 11:57 | disposition home or self-care (01) ==
PROVIDERS: PCP Internal Medicine; Visit Provider Nurse Practitioner Family
DX: M96.1 Postlaminectomy syndrome, not elsewhere classified (principal); M54.16 Radiculopathy, lumbar region
CPT/HCPCS: 99214

== ENCOUNTER → 2022-12-10 11:25 | Outpatient (BNVA) | payer MEDICARE, SELFPAY | PROVIDERS: PCP Internal Medicine; Visit Provider Nurse Practitioner Family | DX: M96.1 Postlaminectomy syndrome, not elsewhere classified (principal); M54.16 Radiculopathy, lumbar region | CPT/HCPCS: 99212 ==

== ENCOUNTER → 2023-02-09 11:20 | Day surgery (SDC) | payer MEDICARE, SELFPAY ==
[2023-02-07 13:40] VITALS: BMI 46.5
--- NOTE | 2023-02-08 11:01 | HO.ANESPROP2 ---
HPI - Anesthesia Eval Consult details Narrative: 62yo F for Caudal Epidural Steroid Injection with catheter s/p same 05/2022 with MAC PMFSH Active Problems Active Problems: All Active Problems (Updated 12/10/22 @ 13:01 by REX Mack) Lumbar radiculopathy, right (Acute) Trigger finger, right middle finger (Acute) Carpal tunnel syndrome of right wrist (Acute) Thumb numbness (Acute) Fall (Acute) Lumbar post-laminectomy syndrome (Acute) Past Medical History Medical History (Updated 12/10/22 @ 13:01 by REX Mack) Arthritis Back pain Insomnia Use of cane as ambulatory aid COVID Anxiety MAK on CPAP Diabetes HTN (hypertension) Lumbar post-laminectomy syndrome Family History Family History Mother PONV (postoperative nausea and vomiting) Family history of problems with anesthesia: No Surgical History Surgical History (Updated 02/07/23 @ 13:39 by Briana Sabillon RN) Hx of carpal tunnel repair S/P placement of nerve stimulator Hx of tubal ligation Hx of colonoscopy History of total right knee replacement History of back surgery History of Problems with Anesthesia: No Social History Social History Patient Tobacco Use Status: Never used Tobacco Second Hand Smoke Exposure: No Use of substances other than those prescribed or required for medical reasons: No Are you DNR?: No Advance Directives: No Advance Directives Information Provided: Yes Advance Directives on File: No Current occupational status: disabled 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 Meds Allergies Allergy/AdvReac Type Severity Reaction Status Date / Time metformin AdvReac Severe GI upset Verified 12/10/22 11:34 liraglutide [From Victoza] AdvReac Intermediate GI upset Verified 12/10/22 11:34 Home Medications Medication Instructions Recorded Confirmed Last Taken Type gabapentin 300 mg capsule 300 mg PO QID 10/27/20 02/07/23 02/09/23 History hydrochlorothiazide 25 mg tablet 25 mg PO DAILY 10/27/20 02/07/23 Unknown History ibuprofen 800 mg tablet 800 mg PO Q8H PRN pain 10/27/20 02/07/23 02/08/23 History insulin lispro 100 unit/mL 15 unit subcut 5XD 10/27/20 02/07/23 Unknown History subcutaneous pen (Humalog KwikPen (U-100) Insulin) lisinopril 10 mg tablet 10 mg PO DAILY 10/27/20 02/07/23 Unknown History loratadine 10 mg tablet 10 mg PO DAILY 10/27/20 02/07/23 Unknown History oxycodone 10 mg tablet 10 mg PO QID PRN Back Pain 10/27/20 02/07/23 02/09/23 History sertraline 100 mg tablet 100 mg PO DAILY 10/27/20 02/07/23 05/12/22 History trazodone 100 mg tablet 200 mg PO BEDTIME 10/27/20 02/07/23 Unknown History atorvastatin 10 mg tablet 10 mg PO DAILY 10/09/21 02/07/23 Unknown History cholecalciferol (vitamin D3) 25 1,000 unit PO DAILY 04/20/22 02/07/23 Unknown History mcg (1,000 unit) tablet insulin glargine 100 unit/mL (3 78 - 82 unit subcut DAILY 06/28/22 02/07/23 Unknown History mL) subcutaneous pen (Lantus Solostar U-100 Insulin) Exam Height,Weight and Vital Signs: Height 5 ft 4 in Weight 122.924 kg Assessment and Plan Assessment Anesthesia Assessment: Chart Reviewed Final Anesthetic Review Family History of Problems with Anesthesia: No History of Problems with Anesthesia: No
[2023-02-09 12:15] VITALS: BP 114/60; PULSE 84; RESP 18; TEMP 36.4; O2SAT 97
[2023-02-09 12:18] LABS: Glucose, Whole Blood 139 mg/dL (60-115)
--- NOTE | 2023-02-09 14:07 | PC.NURSE ---
upon speaking with anesthesia, pt stated she is on ozempic qfridays. she took it last tuesday . anesthesia cancelled and md spoke with pt about rescheduling.
== END ==
PROVIDERS: PCP Internal Medicine; Visit Provider Internal Medicine
DX: M96.1 Postlaminectomy syndrome, not elsewhere classified (principal); Z53.8 Procedure and treatment not carried out for other reasons; M54.16 Radiculopathy, lumbar region; E11.9 Type 2 diabetes mellitus without complications; I10 Essential (primary) hypertension; Z79.4 Long term (current) use of insulin; Z88.8 Allergy status to other drugs, medicaments and biological substances
CPT/HCPCS: 82947; J1040; J2250; J2704; J2795; Q9967

== ENCOUNTER → 2023-02-21 10:32 | Outpatient (BNVA) | payer MEDICARE, SELFPAY | PROVIDERS: PCP Internal Medicine; Visit Provider Internal Medicine ==

== ENCOUNTER 2023-06-13 10:38 | Outpatient (AMB) | payer MEDICARE, SELFPAY ==
--- NOTE | 2023-06-13 10:41 | MHC.OFFVIS ---
Intake Vital Signs 06/13/23 10:43 Height 5 ft 4 in Weight 259 lb BMI 44.5 BP 136/65 Blood Pressure Location Rt brachial Position Sitting Respiration 12 Pulse 90 Pulse Source Pulse Oximeter Pulse Oximetry (%) 94 Oxygen Delivery Method Room Air Intake Visit Reasons: follow up Allergies metformin Adverse Reaction (Severe, Verified 06/13/23 10:45) GI upset liraglutide [From Victoza] Adverse Reaction (Intermediate, Verified 06/13/23 10:45) GI upset Medication List - Last Reconciled 06/13/23 by Cherelle Monge LPN atorvastatin 10 mg PO DAILY cholecalciferol (vitamin D3) 1,000 units PO DAILY doxycycline monohydrate 100 mg PO BID gabapentin 300 mg PO QID hydrochlorothiazide 25 mg PO DAILY ibuprofen 800 mg PO Q8H PRN insulin glargine (Lantus Solostar U-100 Insulin) 78 - 82 units subcut DAILY insulin lispro (Humalog KwikPen (U-100) Insulin) 15 units subcut 5XD lisinopril 10 mg PO DAILY loratadine 10 mg PO DAILY oxycodone 10 mg PO QID PRN semaglutide (Ozempic) 1 mg subcut QWEEK sertraline 100 mg PO DAILY trazodone 200 mg PO BEDTIME HPI follow up HPI Details 62-year-old female who presents today to the office for a follow up. The patient has to reschedule and delay her cortisone injection due to a recent diagnosis of cancer. She follows up with her oncologist. She will start 12 weeks of radiation therapy treatment after coming back from [place]. She requested a cortisone injection for her radicular back pain radiating to the leg. She states that her daughter is getting in July 2023 in [place]. She wants to schedule the appointment prior to 08/03/2023. She has lost about 20 lbs. recently. She continues to use Stimwave every day; however, she occasionally forgets to use the device at night. Past Procedures: 05/12/22: Caudal JAKE with catheter: Procedure canceled by anesthesia 07/29/21: Stimwave Lumbar SCS Implant ? At least 50% relief. 05/13/21: Percutaneous Spinal Cord Stimulator Trial, Lumbar. 01/28/21: Caudal JAKE W/Catheter ? No noticeable relief. 11/26/20: Caudal JAKE W/Catheter ? 70% relief for a month. [facility] Medical History (Updated 12/10/22 @ 13:01 by REX Mack) Arthritis Back pain Insomnia Use of cane as ambulatory aid COVID Anxiety MAK on CPAP Diabetes HTN (hypertension) Lumbar post-laminectomy syndrome Surgical History (Updated 02/07/23 @ 13:39 by Briana Sabillon RN) Hx of carpal tunnel repair S/P placement of nerve stimulator Hx of tubal ligation Hx of colonoscopy History of total right knee replacement History of back surgery Family History Mother PONV (postoperative nausea and vomiting) Social History Patient Tobacco Use Status: Never used Tobacco Second Hand Smoke Exposure: No Current occupational status: disabled 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 Alert and oriented. Mood and affect appropriate. Follows and participates in conversation appropriately. Respiratory effort is unlabored. Able to transition from sit to stand unassisted. Ambulates with bilaterally normal heel strike and toe off. Results Reviewed Results Reviewed: No imaging is available for review. Assessment & Plan Assessment & Plan (1) Lumbar radiculopathy, right: Code(s): M54.16 - Radiculopathy, lumbar region (2) Lumbar post-laminectomy syndrome: Comment: Status post L4-5 laminectomy/fusion Status post lumbar SCS (Stimwave) Code(s): M96.1 - Postlaminectomy syndrome, not elsewhere classified Plan We will schedule her for a caudal epidural steroid injection with catheter. Discussed the risks and benefits of the procedure with the patient in detail. All questions were answered. The patient is on board with the plan. Justification for interventional therapy: ? Patient with average pain > 6/10 ? Patient has exhausted conservative therapy ? Patient unable to tolerate physical therapy due to pain ? Previous injection provided >50% relief x > 2 weeks. . Patient has a good understanding of their pain condition and has appropriate mental and social support Scribed for Dr. Diamond by Alex Rogers, medical staff services coordinator, on 06/13/2023. I, Dr. Diamond, have personally reviewed and agree with the information entered by the scribe. Coding Level of Care Code Est Pt Level 4 (02632) Diagnoses Lumbar radiculopathy, right M54.16 Lumbar post-laminectomy syndrome M96.1
[2023-06-13 10:43] VITALS: BP 136/65; PULSE 90; RESP 12; O2SAT 94; BMI 44.5
== END 2023-06-13 11:01 | disposition home or self-care (01) ==
PROVIDERS: PCP Internal Medicine; Visit Provider Internal Medicine
DX: M54.16 Radiculopathy, lumbar region (principal); M96.1 Postlaminectomy syndrome, not elsewhere classified
CPT/HCPCS: 99214

== ENCOUNTER → 2023-06-13 10:38 | Outpatient (BNVA) | payer MEDICARE, SELFPAY | PROVIDERS: PCP Internal Medicine; Visit Provider Internal Medicine | DX: M54.16 Radiculopathy, lumbar region (principal); M96.1 Postlaminectomy syndrome, not elsewhere classified; Z96.82 Presence of neurostimulator; Z96.651 Presence of right artificial knee joint | CPT/HCPCS: 99212 ==

== ENCOUNTER 2023-07-14 06:27 | Outpatient (REF) | payer MEDICARE, SELFPAY ==
--- NOTE | ~2023-07-14 | FL_ITS ---
EXAMINATION: XR FLUOROSCOPY WITH IMAGES CLINICAL INFORMATION: Postlaminectomy syndrome. COMPARISON: None available. TECHNIQUE: Fluoroscopy Supervised By: Dr. Arvind Diamond. Fluoroscopy Time: 0.5 minutes. Cumulative Dose: 13.4 mGy. DAP: 0.106 Gycm2. Images: 2. FINDINGS: Intraoperative fluoroscopy and spot films were performed during a procedure in the OR. A needle is seen overlying the lower sacrum in the midline with contrast injected. Fusion hardware is partially visualized. Please see Dr. Arvind Diamond's report for complete details. FL/FL guidance in treatment room IMPRESSION: Intraoperative fluoroscopy and spot films were obtained. Please see Dr. Arvind Diamond's report for complete details.
== END 2023-07-14 06:28 | disposition home or self-care (01) ==
LOC: CF 06:27
PROVIDERS: Visit Provider Internal Medicine
DX: M96.1 Postlaminectomy syndrome, not elsewhere classified (principal)
CPT/HCPCS: 62323; J3301; Q9967

== ENCOUNTER 2023-07-14 13:55 | Outpatient (AMB) | payer MEDICARE, SELFPAY ==
--- NOTE | 2023-07-14 13:55 | A.OFFVIS_ITS ---
Vital Signs 07/14/23 15:48 07/14/23 15:49 Height 5 ft 4 in Weight 259 lb BMI 44.5 BP 112/74 106/60 Blood Pressure Location Lt brachial Lt brachial Position Sitting Sitting Respiration 20 16 Pulse 84 88 Pulse Source Pulse Oximeter Pulse Oximeter Pulse Oximetry (%) 93 96 Oxygen Delivery Method Room Air Room Air Comment Pre-Op Post-Op Intake Visit Reasons: Caudal JAKE Allergies metformin Adverse Reaction (Severe, Verified 06/13/23 10:45) GI upset liraglutide [From Victoza] Adverse Reaction (Intermediate, Verified 06/13/23 10:45) GI upset HPI HPI Caudal JAKE: Details: Patient presents for scheduled procedure. Denies any recent cough, cold, infection, fever or other significant changes in medical history since last office visit. Oxycodone 10 mg p.o. and lorazepam 1 mg p.o. was given 1 hour prior to the pr ocedure for procedural comfort. PFSH Medical History (Updated 12/10/22 @ 13:01 by REX Mack) Arthritis Back pain Insomnia Use of cane as ambulatory aid COVID Anxiety MAK on CPAP Diabetes HTN (hypertension) Lumbar post-laminectomy syndrome Surgical History (Updated 02/07/23 @ 13:39 by Briana Sabillon RN) Hx of carpal tunnel repair S/P placement of nerve stimulator Hx of tubal ligation Hx of colonoscopy History of total right knee replacement History of back surgery Family History Mother PONV (postoperative nausea and vomiting) Social History Patient Tobacco Use Status: Never used Tobacco Second Hand Smoke Exposure: No Current occupational status: disabled 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 The patient was placed in the prone position. The lumbosacral area was widely prepped with chloraprep and draped in sterile fashion. The skin overlying the target was anesthetized with 0.5% lidocaine. A 17 G needle was used to access the caudal epidural space using anatomic landmarks and x-ray guidance. We then threaded a catheter up to the L5/S1 level and injected contrast 1cc omnipaque 180 for verification of epidural spread. Following negative aspiration of heme or CSF, a mixture of 5 ml 0.5% lidocaine with 80 mg triamcinolone was injected with minimal pressure into the epidural space. The needle was removed, skin cleansed and a sterile bandage was applied. The patient tolerated the procedure well and no complications were encountered. Following the procedure the patient's vital signs were stable. The patient was discharged home in good condition with post-procedural instructions. Time Out: Immediately prior to the procedure, the following was verbally confirmed that there is a signed consent form and that the correct patient, planned procedure, site and side are consistent with documentation and that necessary equipment and/or blood products are available prior to the start of the case. Complications: none EBL: <5 cc Coding 92467 - Caudal/Lumbar Epidural/Interlaminar with fluoroscopy Procedure code (CPT) selection complete Assessment & Plan Assessment & Plan (1) Lumbar radiculopathy, right: Code(s): M54.16 - Radiculopathy, lumbar region Category: Medical Plan: Patient is status post caudal JAKE with catheter. Patient tolerated procedure well and was discharged home in stable condition with discharge instructions. All questions were answered. We will follow-up via telephone or in clinic to assess response to therapy. A follow-up appointment was made during today's visit. Orders: Orders FL guidance in treatment room Today Kaylah Tate APRN, [employer] M96.1 - Postlaminectomy syndrome, not elsewhere classified Medications: New oxycodone Take 1 hour prior to scheduled procedure 10 mg PO ONCE PRN 1 tab 0RF pain Arvind Diamond MD Coding Level of Care Code Procedure Only Diagnoses Lumbar radiculopathy, right M54.16 CPT Codes Coding - Joint 11: 24084 - Caudal/Lumbar Epidural/Interlaminar with fluoroscopy ([id number])
[2023-07-14 15:48] VITALS: BP 112/74; PULSE 84; RESP 20; O2SAT 93; BMI 44.5
[2023-07-14 15:49] VITALS: BP 106/60; PULSE 88; RESP 16; O2SAT 96
== END 2023-07-14 15:42 | disposition home or self-care (01) ==
LOC: HO.PMCPRC 13:55
PROVIDERS: PCP Internal Medicine; Visit Provider Internal Medicine
DX: M54.16 Radiculopathy, lumbar region (principal)
CPT/HCPCS: 62323

== ENCOUNTER 2023-08-12 11:34 | Outpatient (AMB) | payer MEDICARE, SELFPAY ==
--- NOTE | 2023-08-12 11:36 | A.OFFVIS_ITS ---
Vital Signs 08/12/23 11:38 Height 5 ft 4 in Weight 258 lb BMI 44.3 BP 149/68 H Blood Pressure Location Rt brachial Position Sitting Respiration 14 Pulse 88 Pulse Source Pulse Oximeter Pulse Oximetry (%) 97 Oxygen Delivery Method Room Air Intake Visit Reasons: s/p caudal JAKE Allergies metformin Adverse Reaction (Severe, Verified 08/12/23 11:39) GI upset liraglutide [From Victoza] Adverse Reaction (Intermediate, Verified 08/12/23 11:39) GI upset Medication List - Last Reconciled 08/12/23 by Cherelle Monge LPN atorvastatin 10 mg PO DAILY cholecalciferol (vitamin D3) 1,000 units PO DAILY doxycycline monohydrate 100 mg PO BID gabapentin 300 mg PO QID hydrochlorothiazide 25 mg PO DAILY ibuprofen 800 mg PO Q8H PRN insulin glargine (Lantus Solostar U-100 Insulin) 78 - 82 units subcut DAILY insulin lispro (Humalog KwikPen (U-100) Insulin) 15 units subcut 5XD lisinopril 10 mg PO DAILY loratadine 10 mg PO DAILY oxycodone 10 mg PO QID PRN oxycodone 10 mg PO ONCE PRN semaglutide (Ozempic) 1 mg subcut QWEEK sertraline 100 mg PO DAILY trazodone 200 mg PO BEDTIME HPI HPI s/p caudal JAKE: Details: 62-year-old female who presents today to the office for a status post caudal JAKE. The patient reports 60% relief following the procedure. She has good relief from the injection. She recently started radiation therapy and had a DEXA scan. Once she finishes her radiation therapy, she will be started on maintainence therapy for her breast cancer that also helps with her bone density. She reports knee pain today. The weather makes her knee pain worse. She is thinking of moving to a warmer place, like [place], for the winter. Past procedures 07/14/23: Caudal JAKE with catheter: 60% relief. 05/12/22: Caudal JAKE with catheter: Procedure canceled by anesthesia 07/29/21: Stimwave Lumbar SCS Implant ? At least 50% relief.? 05/13/21: Percutaneous Spinal Cord Stimulator Trial, Lumbar. 01/28/21: Caudal JAKE W/Catheter ? No noticeable relief. 11/26/20: Caudal JAKE W/Catheter ? 70% relief for a month. [facility] Medical History (Updated 12/10/22 @ 13:01 by REX Mack) Arthritis Back pain Insomnia Use of cane as ambulatory aid COVID Anxiety MAK on CPAP Diabetes HTN (hypertension) Lumbar post-laminectomy syndrome Surgical History (Updated 02/07/23 @ 13:39 by Briana Sabillon RN) Hx of carpal tunnel repair S/P placement of nerve stimulator Hx of tubal ligation Hx of colonoscopy History of total right knee replacement History of back surgery Family History Mother PONV (postoperative nausea and vomiting) Social History Patient Tobacco Use Status: Never used Tobacco Second Hand Smoke Exposure: No Current occupational status: disabled 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 Alert and oriented. Mood and affect appropriate. Follows and participates in conversation appropriately. Respiratory effort is unlabored. Able to transition from sit to stand unassisted. Ambulates with bilaterally normal heel strike and toe off. Results Reviewed Results Reviewed: No imaging is available for review. Assessment & Plan Assessment & Plan (1) Lumbar radiculopathy, right: Code(s): M54.16 - Radiculopathy, lumbar region Category: Medical Plan The patient will follow up as needed to repeat the caudal JAKE. I discussed that the frequency can go up to twice a year, as needed, given the risk of postmenopausal osteoporosis. She is already on hormone therapy for her breast cancer to help with bone density. Scribed for Dr. Diamond by Alex Rogers, resident medical officer, on 08/12/2023. I, Dr. Diamond, have personally reviewed and agree with the information entered by the scribe. Coding Level of Care Code Est Pt Level 3 (78775) Diagnoses Lumbar radiculopathy, right M54.16
[2023-08-12 11:38] VITALS: BP 149/68; PULSE 88; RESP 14; O2SAT 97; BMI 44.3
== END 2023-08-12 11:49 | disposition home or self-care (01) ==
PROVIDERS: PCP Internal Medicine; Visit Provider Internal Medicine
DX: M54.16 Radiculopathy, lumbar region (principal)
CPT/HCPCS: 99213

== ENCOUNTER → 2023-08-12 11:34 | Outpatient (BNVA) | payer MEDICARE, SELFPAY | PROVIDERS: PCP Internal Medicine; Visit Provider Internal Medicine | DX: M54.16 Radiculopathy, lumbar region (principal) | CPT/HCPCS: 99212 ==

== ENCOUNTER 2023-12-15 06:11 | Outpatient (REF) | payer MEDICARE, SELFPAY | END 2023-12-15 06:12 | disposition home or self-care (01) | LOC: CF 06:11 | PROVIDERS: Visit Provider Internal Medicine | DX: M96.1 Postlaminectomy syndrome, not elsewhere classified (principal); M54.16 Radiculopathy, lumbar region | CPT/HCPCS: 62323; J2003; J3301; Q9967 ==

== ENCOUNTER 2023-12-15 10:02 | Outpatient (AMB) | payer MEDICARE, SELFPAY ==
--- NOTE | 2023-12-15 10:11 | MHC.OFFVIS ---
Vital Signs 12/15/23 10:12 12/15/23 11:28 BP 119/60 133/57 L Blood Pressure Location Rt brachial Lt brachial Position Sitting Sitting Pulse 88 76 Pulse Source Pulse Oximeter Pulse Oximeter Pulse Oximetry (%) 94 99 Oxygen Delivery Method Room Air Room Air Intake Visit Reasons: Caudal JAKE Allergies metformin Adverse Reaction (Severe, Verified 08/12/23 11:39) GI upset liraglutide [From Victoza] Adverse Reaction (Intermediate, Verified 08/12/23 11:39) GI upset HPI HPI Caudal JAKE: Details: Patient presents for scheduled procedure. Denies any recent cough, cold, infection, fever or other significant changes in medical history since last office visit. Oxycodone 10 mg and lorazepam 1 mg p.o. were given 1 hour prior to the procedure for premedication. [facility] Medical History (Updated 12/10/22 @ 13:01 by REX Mack) Arthritis Back pain Insomnia Use of cane as ambulatory aid COVID Anxiety MAK on CPAP Diabetes HTN (hypertension) Lumbar post-laminectomy syndrome Surgical History (Updated 02/07/23 @ 13:39 by Briana Sabillon RN) Hx of carpal tunnel repair S/P placement of nerve stimulator Hx of tubal ligation Hx of colonoscopy History of total right knee replacement History of back surgery Family History Mother PONV (postoperative nausea and vomiting) Social History Patient Tobacco Use Status: Never used Tobacco Second Hand Smoke Exposure: No Current occupational status: disabled 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 Standard monitors were applied. The patient was placed in the prone position. The lumbosacral area was widely prepped with chloraprep and draped in sterile fashion. The skin overlying the target was anesthetized with 0.5% lidocaine. A 17 G needle was used to access the caudal epidural space using anatomic landmarks and x-ray guidance. We then threaded a catheter up to the L5/S1 level and injected contrast 1cc omnipaque 180 for verification of epidural spread. Following negative aspiration of heme or CSF, a mixture of 5 ml 0.5% lidocaine with 80 mg triamcinolone was injected with minimal pressure into the epidural space. The needle was removed, skin cleansed and a sterile bandage was applied. The patient tolerated the procedure well and no complications were encountered. Following the procedure the patient's vital signs were stable. The patient was discharged home in good condition with post-procedural instructions. Time Out: Immediately prior to the procedure, the following was verbally confirmed that there is a signed consent form and that the correct patient, planned procedure, site and side are consistent with documentation and that necessary equipment and/or blood products are available prior to the start of the case. Complications: none EBL: <5 cc Coding 52814 - Caudal/Lumbar Epidural/Interlaminar with fluoroscopy Procedure code (CPT) selection complete Assessment & Plan Assessment & Plan (1) Lumbar radiculopathy, right: Code(s): M54.16 - Radiculopathy, lumbar region Category: Medical Plan Patient is status post caudal JAKE with catheter. Patient tolerated procedure well and was discharged home in stable condition with discharge instructions. All questions were answered. We will follow-up via telephone or in clinic to assess response to therapy. A follow-up appointment was made during today's visit. Orders: Orders FL guidance in treatment room Today M96.1 - Postlaminectomy syndrome, not elsewhere classified Coding Level of Care Code Procedure Only Diagnoses Lumbar radiculopathy, right M54.16 CPT Codes Coding - Joint 11: 47083 - Caudal/Lumbar Epidural/Interlaminar with fluoroscopy ([id number])
[2023-12-15 10:12] VITALS: BP 119/60; PULSE 88; O2SAT 94
[2023-12-15 11:28] VITALS: BP 133/57; PULSE 76; O2SAT 99
== END 2023-12-15 11:35 | disposition home or self-care (01) ==
LOC: HO.PMCPRC 10:02
PROVIDERS: PCP Internal Medicine; Visit Provider Internal Medicine
DX: M54.16 Radiculopathy, lumbar region (principal)
CPT/HCPCS: 62323

== ENCOUNTER 2024-01-13 11:27 | Outpatient (AMB) | payer MEDICARE, SELFPAY ==
--- NOTE | 2024-01-13 11:34 | A.OFFVIS_ITS ---
Vital Signs 01/13/24 11:35 Height 5 ft 4 in Weight 258 lb BMI 44.3 BP 122/61 Blood Pressure Location Lt brachial Position Sitting Respiration 16 Pulse 87 Pulse Source Pulse Oximeter Pulse Oximetry (%) 97 Oxygen Delivery Method Room Air Intake Visit Reasons: s/p caudal JAKE & Meeting w/ [employer]ix Rep Allergies metformin Adverse Reaction (Severe, Verified 01/13/24 11:37) GI upset liraglutide [From Victoza] Adverse Reaction (Intermediate, Verified 01/13/24 11:37) GI upset Medication List - Last Reconciled 01/13/24 by Cherelle Monge LPN atorvastatin 10 mg PO DAILY cholecalciferol (vitamin D3) 1,000 units PO DAILY doxycycline monohydrate 100 mg PO BID gabapentin 300 mg PO QID hydrochlorothiazide 25 mg PO DAILY ibuprofen 800 mg PO Q8H PRN insulin glargine (Lantus Solostar U-100 Insulin) 78 - 82 units subcut DAILY insulin lispro (Humalog KwikPen (U-100) Insulin) 15 units subcut 5XD lisinopril 10 mg PO DAILY loratadine 10 mg PO DAILY oxycodone 10 mg PO QID PRN oxycodone 10 mg PO ONCE PRN semaglutide (Ozempic) 1 mg subcut QWEEK sertraline 100 mg PO DAILY trazodone 200 mg PO BEDTIME HPI HPI s/p caudal JAKE & Meeting w/ [employer] Rep: Details: 63-year-old female who presents today to the office for a status post caudal epidural steroid injection. The patient reports more than 80% relief following the procedure. She still reports mild burning sensations in her ankle and top of the foot. She has difficulty wearing sneakers. She has mild swelling in her foot. She is able to walk but has some soreness. She has no concerns today. Her device was reprogrammed today in the office.? Past procedures 12/15/23: Caudal JAKE with catheter: more than 80% relief. 07/14/23: Caudal JAKE with catheter: 60% relief. 05/12/22: Caudal JAKE with catheter: Procedure canceled by anesthesia 07/29/21: Stimwave Lumbar SCS Implant ? At least 50% relief.? 05/13/21: Percutaneous Spinal Cord Stimulator Trial, Lumbar. 01/28/21: Caudal JAKE W/Catheter ? No noticeable relief. 11/26/20: Caudal JAKE W/Catheter ? 70% relief for a month. PFSH Medical History (Updated 12/10/22 @ 13:01 by REX Mack) Arthritis Back pain Insomnia Use of cane as ambulatory aid COVID Anxiety MAK on CPAP Diabetes HTN (hypertension) Lumbar post-laminectomy syndrome Surgical History (Updated 02/07/23 @ 13:39 by Briana Sabillon RN) Hx of carpal tunnel repair S/P placement of nerve stimulator Hx of tubal ligation Hx of colonoscopy History of total right knee replacement History of back surgery Family History Mother PONV (postoperative nausea and vomiting) Social History Patient Tobacco Use Status: Never used Tobacco Second Hand Smoke Exposure: No Current occupational status: disabled 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 Alert and oriented. Mood and affect appropriate. Follows and participates in conversation appropriately. Respiratory effort is unlabored. Able to transition from sit to stand unassisted. Ambulates with bilaterally normal heel strike and toe off. Results Reviewed Results Reviewed: No imaging is available for review. Assessment & Plan Assessment & Plan (1) Lumbar radiculopathy, right: Code(s): M54.16 - Radiculopathy, lumbar region Category: Medical (2) Lumbar post-laminectomy syndrome: Comment: Status post L4-5 laminectomy/fusion Status post lumbar SCS (Stimwave) Code(s): M96.1 - Postlaminectomy syndrome, not elsewhere classified Category: Medical Plan She had more than 80% relief from the caudal JAKE. She will follow up for a repeat injection if her symptoms return.?SCS was reprogrammed for optimal coverage with curonix respresentative present. Scribed for Dr. Diamond by Alex Rogers, center medical and lab director, on 01/13/2024. I, Dr. Diamond, have personally reviewed and agree with the information entered by the scribe. Coding Level of Care Code Est Pt Level 3 (06721) Diagnoses Lumbar radiculopathy, right M54.16 Lumbar post-laminectomy syndrome M96.1
[2024-01-13 11:35] VITALS: BP 122/61; PULSE 87; RESP 16; O2SAT 97; BMI 44.3
== END 2024-01-13 11:50 | disposition home or self-care (01) ==
PROVIDERS: PCP Internal Medicine; Visit Provider Internal Medicine
DX: M54.16 Radiculopathy, lumbar region (principal); M96.1 Postlaminectomy syndrome, not elsewhere classified
CPT/HCPCS: 99213

== ENCOUNTER → 2024-01-13 11:27 | Outpatient (BNVA) | payer MEDICARE, SELFPAY | PROVIDERS: PCP Internal Medicine; Visit Provider Internal Medicine | DX: M54.16 Radiculopathy, lumbar region (principal); M96.1 Postlaminectomy syndrome, not elsewhere classified | CPT/HCPCS: 99212 ==

== ENCOUNTER 2024-07-12 06:26 | Outpatient (REF) | payer MEDICARE, SELFPAY ==
--- NOTE | ~2024-07-12 | FL_ITS ---
EXAMINATION: FL GUIDANCE ONLY HISTORY: M54.16 - Radiculopathy, lumbar region COMPARISON: None available. TECHNIQUE: Fluoroscopy time: 0.5 minutes. Cumulative Dose: 27.6 mGy. DAP: 0.287 mGym2 Images: 2. FINDINGS: Fluoroscopic spot films of the sacrum demonstrate a needle in place. FL/FL guidance in treatment room IMPRESSION: Fluoroscopy during procedure. Please see procedure report for additional information. Electronically signed by: José Anderson MD 07/12/2024 02:26 PM EDT
--- OUTSIDE RECORDS SUMMARY | 2024-07-12 06:29 | XMS_ITS | Clinical Summary ---
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 <100: 0 units, 101-150: 4 units 151-200: 6 units 201-250: 8 units 251-300: 10units 301-350: 12 units 351-400: 14 units >400: 16 units , call me max dose 48units/day Active hyaluronate sodium (SODIUM HYALURONATE IO) Inject 20 mg into the joint 1 (one) time per week. for 21 days. Inject one pre-filled syringe to left knee once weekly for 3 weeks - Intra-articular 024 Active fluticasone propionate (FLONASE) 50 mcg/actuation nasal spray Administer 1 spray into each nostril 2 (two) times a day. Active UNABLE TO FIND Administer into affected nostril(s) at bedtime. CPAP Historical Active blood-glucose meter kit 1 each by Other route 3 (three) times a day. 021 Active insulin glargine (Lantus Solostar U-100 Insulin) 100 unit/mL (3 mL) injection pen Inject 78-82 Units under the skin 1 (one) time each day. 023 Active UNABLE TO FIND 1 EA by extracorporeal route 4 (four) times a day. Insulin Pen Needle (B-D ULTRAFINE III SHORT PEN) 31G X 8 MM Misc Active LORazepam (ATIVAN) 0.5 mg tablet Take 1 tablet (0.5 mg total) by mouth 2 (two) times a day if needed for anxiety. for up to 30 days Active metroNIDAZOLE (METROGEL) 0.75 % gel Apply topically 2 (two) times a day. Sig: Apply to cleanse face Active OMEGA-3 FATTY ACIDS ORAL Take 1 capsule by mouth 2 (two) times a day. 015 Active semaglutide (Ozempic) 1 mg/dose (4 mg/3 mL) injection pen Inject 1 mg under the skin every 7 (seven) days. Active triamcinolone (NASACORT) 55 mcg nasal inhaler Administer 2 sprays into affected nostril(s) 1 (one) time each day. Active cholecalciferol (VITAMIN D-3) 25 mcg (1,000 unit) tablet Take 1 tablet (1,000 Units total) by mouth 1 (one) time each day. Active hydroCHLOROthia zide (HYDRODIURIL) 25 mg tabletIndicatio ns:Essential (primary) hypertension TAKE 1 TABLET BY MOUTH EVERY DAY 90 tablet 024 Active traZODone (DESYREL) 100 mg tablet TAKE 2 TABLETS BY MOUTH AT BEDTIME 180 tablet 1 024 Active sertraline (ZOLOFT) 100 mg tablet TAKE 1 TABLET BY MOUTH EVERY DAY 90 tablet 1 025 Active ibuprofen (ADVIL,MOTRIN) 800 mg tablet TAKE 1 TABLET BY MOUTH EVERY 8 HOURS NEEDED FOR PAIN 270 tablet 1 Active pen needle, diabetic (BD Ultra-Fine Short Pen Needle) 31 gauge x 5/16 needleIndicatio ns:Type 2 diabetes mellitus with diabetic microalbuminuri a, with long-term current use of insulin ([facility] V24, [facility] V28) Use to inject 1-4 times daily.E11.29 100 each 11 Active sertraline (ZOLOFT) 25 mg tablet Take 1 tablet (25 mg total) by mouth 1 (one) time each day. 90 tablet 1 025 Active FreeStyle Cy 2 Sensor kit 025 Active blood-glucose meter,continuou s (FreeStyle Cy 3 [place]) miscIndications :Type 2 diabetes mellitus with chronic kidney disease, with long-term current use of insulin, unspecified CKD stage ([facility] V24, [facility] V28) CGM, use with cy sensor 1 each 025 Active blood-glucose sensor (FreeStyle Cy 3 Sensor) deviceIndicatio ns:Type 2 diabetes mellitus with chronic kidney disease, with long-term current use of insulin, unspecified CKD stage ([facility] V24, [facility] V28) Box = Kit = EA, use one sensor every 14 days. 2 each 3 025 Active lisinopriL (PRINIVIL,ZESTR IL) 10 mg tablet Take 1 tablet (10 mg total) by mouth 1 (one) time each day. 90 tablet 1 025 Active gabapentin (NEURONTIN) 300 mg capsule Take 1 capsule (300 mg total) by mouth 4 (four) times a day. 360 capsule 1 025 Active loratadine (CLARITIN) 10 mg tablet Take 1 tablet (10 mg total) by mouth 1 (one) time each day. 90 tablet 1 025 Active atorvastatin (LIPITOR) 10 mg tablet Take 1 tablet (10 mg total) by mouth at bedtime. 90 tablet 1 025 Active oxyCODONE (ROXICODONE) 10 mg immediate release tablet Take 1 tablet (10 mg total) by mouth every 4 (four) hours. Max Daily Amount: 60 mg 112 tablet 025 Active letrozole (FEMARA) 2.5 mg tablet TAKE 1 TABLET BY MOUTH EVERY DAY 90 tablet 2 025 Active amoxicillin (AMOXIL) 500 mg capsule Take 1 capsule (500 mg total) by mouth. 1 hour prior to dental appt 2024 Discontinued doxycycline (VIBRAMYCIN) 100 mg capsule Take 1 capsule (100 mg total) by mouth 2 (two) times a day with meals. AND A FULL GLASS OF WATER. WEAR SUNSCREEN. 2024 Discontinued oxyCODONE (ROXICODONE) 10 mg immediate release tablet Take 1 tablet (10 mg total) by mouth every 4 (four) hours. Max Daily Amount: 60 mg 112 tablet 025 2024 Discontinued(R eorder) letrozole (FEMARA) 2.5 mg tablet TAKE 1 TABLET BY MOUTH EVERY DAY 30 tablet 5 025 2024 Discontinued Active Problems Problem Noted Date Diagnosed Date MAK on CPAP 12/02/2023 Morbid obesity with BMI of 4 5.0-49.9, adult ([facility] V24, [facility] V28) 12/02/2023 Invasive ductal carcinoma of breast ([facility] V24, [facility] V28) 08/23/2023 Overview (12/02/2023): 05/2023- partial left breast mastectomy with Dr. Krystyna Bernabe. Estrogen and Progesterone receptor Positive HER2 Negative Cervical spondylosis with radiculopathy 11/06/19 Overview (12/02/2023): Last Assessment & Plan: Ms. Downing has been suffering with left-sided neck pain and radiation into the left arm for about 6 months. The pain in the arm is in a C7 or C8 distribution. She had a cortisone injection which relieved some of her radiating arm pain. She is being scheduled for a CAT scan of the cervical spine to better evaluate the situation at T1. Physical therapy would be a reasonable conservative modality including cervical traction which may help her neck and left upper extremity symptoms. She will follow-up with us after therapy if she is still having pain. I asked her to call me after she has the CAT scan the cervical spine so that I can look for it and review it myself. Stage 3a chronic kidney disease ([facility] V24, [facility] V28) 06/26/2021 Postlaminectomy syndrome of lumbosacral region 0 07/02/2020 COVID-19 virus infection 03/02/2020 Conjunctivitis, allergic, bilateral 11/26/2019 Morbid obesity ([facility] V24, [facility] V28) 2018 Upper airway cough syndrome 07/22/2017 Subclinical hypothyroidism 06/14/2017 Overview (12/02/2023): TSH 4.06, 06/13/2017 Essential hypertension 06/14/2017 Multiple pulmonary nodules 05/01/2017 Cataract 04/16/2016 Type 2 diabetes mellitus wit h eye manifestations ([facility] V24, [facility] V28) 03/31/2016 Diabetic retinopathy ([facility] V24, [facility] V28) 03/31/2016 Lumbar radicular pain 02/03/2015 Overview (12/02/2023): Has seen pain management who recommended right L4 transforaminal epidural injection. Status post total right knee replacement 015 Primary osteoarthritis of left knee 02/03/2015 Microalbuminuria 11/04/2014 Obstructive sleep apnea syndrome 05/11/2011 PIERRE (nonalcoholic steatohepatitis) 04/03/2010 Hyperlipidemia 03/11/2009 DM (diabetes mellitus), type 2 with renal complications ([facility] V24, [facility] V28) 09/21/2005 Overview (12/02/2023): 11/2015 - monitor at present Depressive disorder 09/09/2005 Perennial allergic rhinitis 09/09/2005 Encounters Date Type Department Care Team Description 06/27/2024 10:30 AM EDT Office Visit [facility] Hematology Oncology [address] [place] [address] Kaushik Lima MD Malignant neoplasm of unspecified site of unspecified female breast ([facility] V24, [facility] V28) 06/14/2024 Telephone Adult Medicine [facility] - [address] [phone] Farrukh Epps MD Referral (Oncology Insurance Referral) 05/24/2024 Telephone Endocrinology [address] [phone] Jessica Damon [place] ozempic endo 05/16/2024 11:00 AM EDT Office Visit General Surgery [facility] [address] [facility] [address] [place] [address] Terry Bernabe MD History of left breast cancer (Primary Dx); History of partial mastectomy of left breast 05/14/2024 10:38 AM EDT - 05/14/2024 11:59 PM EDT Hospital Encounter Radiology Department [address] [phone] Breast tenderness; History of left breast cancer Discharge Disposition: Home or Self Care 05/10/2024 9:45 AM EST Office Visit Pulmonolgy - [place] [address] [facility] [address] [place] [address] Yamila Veloz MD Pneumonia of left upper lobe due to infectious organism (Primary Dx); Lung nodules; Chronic bronchitis, unspecified chronic bronchitis type (CMS/HCC V24, CMS/HCC V28); MAK on CPAP 05/09/2024 11:30 AM EST Office Visit Adult [address] [phone] Silver Anders PA Encounter for long-term (current) use of medications (Primary Dx); Lumbar radicular pain; Essential hypertension; Hyperlipidemia, unspecified hyperlipidemia type; Stage 3a chronic kidney disease (CMS/HCC V24, CMS/HCC V28); Type 2 diabetes mellitus with stage 3 chronic kidney disease, with long-term current use of insulin, unspecified whether stage 3a or 3b CKD (CMS/HCC V24, CMS/HCC V28); Depressive disorder; Anxiety; Insomnia, unspecified type; Breast tenderness; History of left breast cancer 04/17/2024 10:40 AM EST Office Visit Endocrinology [address] [phone] Camilla Meyers PA Type 2 diabetes mellitus with chronic kidney disease, with long-term current use of insulin, unspecified CKD stage (CMS/HCC V24, CMS/HCC V28) (Primary Dx); Essential hypertension; Hyperlipidemia, unspecified hyperlipidemia type; Stage 3a chronic kidney disease (CMS/HCC V24, CMS/HCC V28); Morbid obesity (CMS/HCC V24, CMS/HCC V28) 04/17/2024 Telephone Adult [address] [phone] Farrukh Epps MD Referral from Last 3 Months Immunizations Name Administration Dates Next Due H1N1 Inj Preservative Free 03/11/2009 Influenza Quadravalent, MDCK , 0.5ml, preservative free (Flucelvax) 6mo and older 12/16/2020,01/02/2019,11/17/2017 Influenza Quadravalent, MDCK , 0.5ml, with preservative (Flucelvax) 6mo and older 02/04/2017 Influenza trivalent, 0.5mL ( Fluzone High-dose) 65yo and older 02/10/2016,12/13/2014,01/16/2013,11/11,12/19/2009,12/03/2008,01/03/2006 Influenza trivalent, with pr eservative (Fluzone; Afluria) 6mo and older 01/13/2022,12/27/2007,11/29/2006 Pfizer Covid-19 Bivalent, Or iginal + Ba.1 (Non-[employer] Trademark BeestarIRClip Bivalent) 01/19/2022 Pneumococcal polysaccharide 23 valent (Pneumovax 23) 2yo and older 12/20/2006 Td Tetanus diptheria (Tdvax) 7yo and older 05/03/2019 Tdap Tetanus diptheria acell ular pertussis (Boostrix; Adacel) 7yo and older 05/03/2019,01/10/2008 Surgical History Surgery Date Site/Laterality Comments TUBAL LIGATION PROCEDURE: HISTORICAL TUBAL LIGATION BACK SURGERY 06/2007 PROCEDURE: HISTORICAL BACK SURGERY; COMMENT: HERNIATED DISCS, 2 operations BACK SURGERY 06/2008 PROCEDURE: HISTORICAL BACK SURGERY; COMMENT: herniated disc TOTAL KNEE ARTHROPLASTY 12/15/2011 Right PROCEDURE: HISTORICAL TOTAL KNEE REPLACE BACK SURGERY 08/2019 PROCEDURE: HISTORICAL BACK SURGERY CARPAL TUNNEL RELEASE 05/2022 Right PROCEDURE: HISTORICAL CARPAL TUNNEL REL BACK SURGERY PROCEDURE:BACK SURGERY JOINT REPLACEMENT Right PROCEDURE:JOINT REPLACEMENT;COMMENT:knee BREAST LUMPECTOMY 05/06/2023 - 06/05/2023 Left IDC Medical History Medical History Date Comments Allergic rhinitis, cause unspecified 09/09/2005 DX:Allergic rhinitis, cause unspecified Depressive disorder, not els ewhere classified 09/09/2005 DX:Depressive disorder, not elsewhere classified Arthritis DX:Arthritis Slipped intervertebral disc DX:S lipped intervertebral disc Hyperlipidemia 03/11/2009 DX:Hyperlipidemi a PIERRE (nonalcoholic steatohepatitis) 04/03/2010 DX:PIERRE (nonalcoholic steatohepatitis) Microalbuminuria 11/04/2014 DX:Microalbumin uria Obstructive sleep apnea 05/11/2011 DX:Obstr uctive sleep apnea; COMMENT: Cx pulmo 10/13/2015 09/08/2015 to 10/07/2015. CPAP@ 6-16/Average 15/Max 15.8. 97% compliant with using the machine for >4 hours/day. Average use is 8.2 hours a night with AHI 1.5. Type 2 diabetes mellitus wit h eye manifestations ([facility] V24, [facility] V28) 03/31/2016 DX:Type 2 diabetes mellitus with eye manifestations (HCC) Diabetic retinopathy ([facility] V24, [facility] V28) 03/31/2016 DX:Diabetic retinopathy (HCC ) Type 2 diabetes mellitus wit h cataract ([facility] V24, [facility] V28) 03/31/2016 DX:Type 2 diabetes mellitus with cataract (HCC); COMMENT: 11/2015 - monitor at present DM (diabetes mellitus), type 2 with renal complications ([facility] V24, [facility] V28) 09/21/2005 DX:DM (diabetes mellitus), t ype 2 with renal complications ([facility]); COMMENT: (added in medical risk adjustment review - 06/02/2010) Morbid obesity ([facility] V24, [facility] V28) 10/11/2015 DX:Morbid obesity (HCC) Cataract 04/16/2016 DX:Cataract Morbid obesity with BMI of 4 5.0-49.9, adult ([facility] V24, [facility] V28) 10/11/2015 DX:Morbid obesity wit h BMI of 45.0-49.9, adult (HCC) COVID-19 virus infection 03/02/2020 DX:COVI D-19 virus infection Invasive ductal carcinoma of breast ([facility] V24, [facility] V28) 08/23/2023 DX:Invasive ductal carcinom a of breast (HCC) Diabetes mellitus ([facility] V 24, [facility] V28) DX:Diabetes mellitus (HCC) Sleep apnea DX:Sleep apnea Arthritis DX:Arthritis Hypertension DX:Hypertension Anxiety DX:Anxiety Depression DX:Depression Family History Medical History Relation Name Comments Breast cancer Aunt m ? age Diabetes Father Stomach cancer Maternal Grandmother Diabetes Mother HTN, Parkinson' s, cataract, glaucoma Breast cancer Other m cousins 30s Stomach cancer Uncle 1 maternal Coronary artery disease Uncle 2 maternal valv e replacement Colon cancer Neg Hx Ovarian cancer Neg Hx Relation Name Status Comments Aunt m ? age Father Maternal Grandfather unknown Maternal Grandmother Mother Other m cousins 30s Paternal Grandfather unknown Paternal Grandmother unknown Sister Alive Uncle 1 maternal Uncle 2 maternal Alive Social History Tobacco Use Types Packs/Day Years Used Date Smoking Tobacco: Never Smokeless Tobacco: Never Tobacco Cessation:Counseling Given: Not Answered Alcohol Use Standard Drinks/Week Comments Never 0 [...] care for your loved ones. For example, childcare center director or elderly care for an older adult? [...] is your living situation? 1 03/30/2023 Comments Unknown Sex and Gender Information Value Date Recorded Sex Assigned at Female 03/14/2024 8:06 AM EST Legal Sex Female 3:58 AM EST Gender Identity Female 03/14/2024 8:06 AM EST Sexual Orientation Straight 03/14/2024 8: 06 AM EST Obstetrics History Para Term AB IAB SAB Ectopic Multiple Livin g Live Births 2 2 2 2 Date Outcome GA Total Labor Labor/2nd/3rd Weight Sex Type Anes PTL Rosa A1 A5 Name Clin Term Term Last Filed Vital Signs Vital Sign Reading Time Taken Comments Blood Pressure 125/53 06/27/2024 10:32 AM EDT Pulse 94 06/27/2024 10:32 AM EDT Temperature 36.1 ??C (97 ??F) 06/27/2024 10:32 AM EDT Respiratory Rate 18 05/10/2024 9:41 AM EST Oxygen Saturation 98% 06/27/2024 10:32 AM EDT Inhaled Oxygen Concentration - - Weight 117 kg (259 lb) 06/27/2024 10:32 AM EDT Height 162.6 cm (5' 4 ) 05/16/2024 11:02 AM EDT Body Mass Index 44.46 05/16/2024 11:02 AM EDT Plan of Treatment Upcoming Encounters Date Type Department Care Team (Late st Contact Info) Description 07/12/2024 10:45 AM EDT Office Visit Orthopedic Surgery - [address] [facility] [address] [place] [phone] Zabrina Carlson MD [address] [facility] [address] [place] [address] 08/10/2024 3:00 PM EDT Office Visit Adult [address] [phone] Farrukh Epps MD [address] [place] [address] 09/26/2024 10:30 AM EDT Office Visit [facility] Hematology Oncology [address] [place] [phone] Kaushik Lima MD [address] [place] [phone] 11/12/2024 9:45 AM EDT Office Visit Pulmonolgy - [place] [address] [facility] [address] [place] [phone] Yamila Veloz MD [address] [facility] [address] [place] [address] 11/12/2024 10:30 AM EDT Office Visit General Surgery [address] [phone] Terry Bernabe MD [address] [facility] [address] [place] [address] 11/15/2024 9:45 AM EDT Office Visit Adult [address] [phone] Farrukh Epps MD [address] [place] [address] 02/18/2025 11:20 AM EST Appointment Radiology Department [address] [phone] Health Maintenance Due Date Last Done Comments Zoster Vaccines (1 of 2) 10/31/1979 Pneumococcal Vaccine: 50+ Years (2 of 2 - PCV) 12/21/2007 12/20/2006 Pneumococcal Vaccine: Pediatrics (0 to 5 Years) and At-Risk Patients (6 to 64 Years) (2 of 2 - PCV) 12/21/2007 12/20/2006 RSV Immunization Adult Patients (1 - Risk 60-74 years 1-dose series) 2020 HIV Screening 02/13/2022 Medicare Annual Wellness Visit 02/13/2022 COVID-19 Vaccine ( season) 2023 02/16/2023, 03/17/2021, 05/30/2020, Additional history exists Colorectal Cancer Screening: Colonoscopy 04/01/2024 04/01/2014 Diabetes: Annual Retina Eye Exam 09/20/2024 09/21/2023 Diabetes: Annual Foot Exam 10/09/2024 10/10/2023 Diabetes: Blood Sugar Control Test (HGBA1C) 10/11/2024 04/13/2024, 02/26/2024, 01/09/2024, Additional history exists Depression Screening 01/28/2025 01/29/2024 Social Influencers of Health Screening 01/28/2025 01/29/2024 Diabetes: Annual Urine Albumin-Creatinine Ratio (uACR) 04/13/2025 04/13/2024, 10/10/2023 Diabetes: Annual GFR (Glomerular Filtration Rate) 04/13/2025 04/13/2024, 02/26/2024, 01/09/2024, Additional history exists Hypertension/CHF/CAD Annual BMP Blood Test 04/13/2025 04/13/2024, 02/26/2024, 01/09/2024, Additional history exists Cervical Cancer Screening: Pap Smear 08/20/2025 08/20/2022, 08/31/2017, 08/31/2017 Breast Cancer Screening 02/15/2026 02/16/20 24, 04/04/2023, 04/04/2023, Additional history exists Cholesterol Screening (Lipid Panel) 04/13/2029 04/13/2024, 03/24/2023 DTaP,Tdap,and Td Vaccines (4 - Td or Tdap) 05/03/2029 05/03/2019, 05/03/2019, 01/10/2008 Hepatitis C Screening Completed 10/20/2012 Influenza Vaccine Completed 12/07/2023, , 01/13/2022, Additional history exists HIB Vaccines Aged Out No longer eligi ble based on patient's age to complete this topic HPV Vaccines Aged Out No longer eligi ble based on patient's age to complete this topic Hepatitis A Vaccines Aged Out No long er eligible based on patient's age to complete this topic Hepatitis B Vaccines Aged Out No long er eligible based on patient's age to complete this topic IPV Vaccines Aged Out No longer eligi ble based on patient's age to complete this topic MMR Vaccines Aged Out No longer eligi ble based on patient's age to complete this topic Meningococcal ACWY Vaccine Aged Out N o longer eligible based on patient's age to complete this topic Meningococcal B Vaccine Aged Out No l onger eligible based on patient's age to complete this topic RSV Immunization Patients Under 20 months Aged Out No longer eligible based on patient's age to complete this topic Varicella Vaccines Aged Out No longer eligible based on patient's age to complete this topic Procedures Procedure Name Priority Date/Time Associated Diagnosis Comments US BREAST LIMITED LEFT Routine 05/14/2024 10:48 AM EDT Breast tenderness History of left breast cancer MICROALBUMIN CREATININE URINE RATIO Routine 04/13/2024 10:50 AM EST Type 2 diabetes mellitus with other diabetic kidney complication, with long-term current use of insulin ([facility] V24, [facility] V28) COMPREHENSIVE METABOLIC PANEL Routine 04/13/2024 10:50 AM EST Type 2 diabetes mellitus with other diabetic kidney complication, with long-term current use of insulin ([facility] V24, [facility] V28) Encounter for long-term (current) use of medications Essential hypertension HEMOGLOBIN A1C Routine 04/13/2024 10:50 AM EST Type 2 diabetes mellitus with other diabetic kidney complication, with long-term current use of insulin ([facility] V24, [facility] V28) LIPID PANEL WITH REFLEX TO DIRECT LDL Routine 04/13/2024 10:50 AM EST Pure hypertriglyceridemia MG MAMMO DIGITAL DIAGNOSTIC W ELIO BILAT Routine 02/16/2024 10:05 AM EST Abnormal mammogram DIABETES FOOT EXAM Routine 10/10/2023 DIABETES EYE EXAM Routine 09/21/2023 PAP SMEAR Routine 08/20/2022 COLONOSCOPY Routine 04/01/2014 HEPATITIS C SCREENING Routine 10/20/2012 from Last 3 Months or Most Recently Relevant to Health Maintenance Results * US Breast Limited Left (05/14/2024 10:48 AM EDT) Anatomical Region Laterality Modality Breast Left Ultrasound 05/14/2024 10:4 9 AM EDT Narrative 05/14/2024 11:40 AM EDT Targeted ultrasound of the left breast. History area of hardness in the inferomedial left breast. ??History of lumpectomy and radiation therapy for the invasive left breast cancer. ??Negative mammogram from 02/16/2024 Examination was directed by the patient to the area of concern in the inferior medial left breast. ??There is some skin pigmentation and [place] appearance of the skin in the area of concern. Ultrasonographic evaluation revealed no evidence of cystic or solid masses. ??There is significant skin thickening. ??It could be due to postradiation changes. ??Clinical evaluation is recommended. CONCLUSIONS: Skin thickening in the area of concern. ??Clinical evaluation is recommended. ??Surgical consultation may be considered. ??Management as well as decision of biopsy should be based on clinical grounds. ??Findings were explained to the patient. BIRADS 3, probably benign findings. -------- FINAL REPORT -------- Dictated By: Laura Jenkins Dictated Date: 05/14/2024 10:49 ET Assigned Physician: Laura Jenkins Reviewed and Electronically Signed By: Laura Jenkins Signed Date: 05/14/2024 11:40 ET Workstation ID: [id number] Transcribed By: Self Edit Transcribed Date: 05/14/2024 11:02 ET Procedure Note Laura Jenkins MD - 05/14/2024 Targeted ultrasound of the left breast. History area of hardness in the inferomedial left breast. History oflumpectomy and radiation therapy for the invasive left breast cancer.Negative mammogram from 02/16/2024 Examination was directed by the patient to the area of concern in theinferior medial left breast. There is some skin pigmentation and [place] appearance of the skin in the area of concern. Ultrasonographic evaluation revealed no evidence of cystic or solidmasses. There is significant skin thickening. It could be due topostradiation changes. Clinical evaluation is recommended. CONCLUSIONS: Skin thickening in the area of concern. Clinical evaluationis recommended. Surgical consultation may be considered. Management aswell as decision of biopsy should be based on clinical grounds. Findingswere explained to the patient. BIRADS 3, probably benign findings. -------- FINAL REPORT -------- Dictated By: Laura Jenkins Dictated Date: 05/14/2024 10:49 ET Assigned Physician: Laura Jenkins Reviewed and Electronically Signed By: Laura Jenkins Signed Date: 05/14/2024 11:40 ET Workstation ID: [id number] Transcribed By: Self Edit Transcribed Date: 05/14/2024 11:02 ET us [facility] [place] PROCEDURES Final Result * Lipid panel with reflex to direct LDL (04/13/2024 10:50 AM EST) Cholesterol 172 0 - 200 mg/dL LAB CHEMISTRY METHOD 04/13/2024 3:16 PM EST [facility] Triglycerides 122 0 - 150 mg/dL LAB CHEMISTRY METHOD 04/13/2024 3:16 PM EST [facility] HDL 71 >=40 mg/dL LAB CHEMISTRY METHOD 04/13/2024 3:16 PM EST [facility] LDL Calculated 77 0 - 100 mg/dL LAB CHEMISTRY METHOD 04/13/2024 3:16 PM EST [facility] VLDL Cholesterol Denilson 24.4 mg/dL LAB CHEMISTRY METHOD 04/13/2024 3:16 PM EST [facility] Non HDL Chol. (LDL+VLDL) 101 <145 mg/dL LAB CHEMISTRY METHOD 04/13/2024 3:16 PM EST [facility] Chol/HDL Ratio 2.4 0.0 - 4.4 LAB CHEMISTRY METHOD 04/13/2024 3:16 PM EST [facility] Blood Venous blood specimen / Unknown Venipuncture / Unknown 04/13/2024 10:50 AM EST 04/13/2024 10:50 AM EST us Farrukh Epps MD LAB BLOOD ORDERABLES Final Resu lt [facility] [address] [place] [address], [place] [phone] * (ABNORMAL) Microalbumin creatinine urine ratio (04/13/2024 10:50 AM EST) Creatinine, Urine 210.0 mg/dL LAB CHEMISTRY METHOD 04/13/2024 12:49 PM [facility] Microalb, Ur 43.3(H) 0.0 - 29.0 mg/L LAB CHEMISTRY METHOD 04/13/2024 12:49 PM EST [facility] Microalb/Crea t Ratio 21 <30 mg/g creat LAB CHEMISTRY METHOD 04/13/2024 12:49 PM EST [facility] Urine Urine specimen obtained by clean catch procedure / Unknown Non-blood Collection / Unknown 04/13/2024 10:50 AM EST 04/13/2024 10:50 AM EST us Farrukh Epps MD LAB URINE ORDERABLES Final Resu lt Performing Organization Address City/[facility]/ZIP Co de Phone Number [facility] [address] [place] [address], [place] [phone] * (ABNORMAL) Hemoglobin A1c (04/13/2024 10:50 AM EST) Hemoglobin A1C 6.5(H) <6.5 % LAB CHEMISTRY METHOD 04/13/2024 2:25 PM EST [facility] Mean Bld Glu Estim. 140 mg/dL LAB CHEMISTRY METHOD 04/13/2024 2:25 PM EST [facility] Blood Venous blood specimen / Unknown Venipuncture / Unknown 04/13/2024 10:50 AM EST 04/13/2024 10:50 AM EST us Farrukh Epps MD LAB BLOOD ORDERABLES Final Resu lt Performing Organization Address [facility]/ZIP Co de Phone Number [facility] [address] [place] [address], [place] [phone] * (ABNORMAL) Comprehensive metabolic panel (04/13/2024 10:50 AM EST) Pathologist [facility] Sodium 139 133 - 145 mmol/L LAB CHEMISTRY METHOD 04/13/2024 3:16 PM [facility] Potassium 3.8 3.5 - 5.5 mmol/L LAB CHEMISTRY METHOD 04/13/2024 3:16 PM [facility] Chloride 102 96 - 110 mmol/L LAB CHEMISTRY METHOD 04/13/2024 3:16 PM [facility] CO2 33(H) 21 - 32 mmol/L LAB CHEMISTRY METHOD 04/13/2024 3:16 PM [facility] Anion Gap 4 3 - 11 LAB CHEMISTRY METHOD 04/13/2024 3:16 PM [facility] Glucose 136(H) 70 - 100 mg/dL LAB CHEMISTRY METHOD 04/13/2024 3:16 PM [facility] BUN 17 5 - 25 mg/dL LAB CHEMISTRY METHOD 04/13/2024 3:16 PM [facility] Creatinine 0.91 0.50 - 1.10 mg/dL LAB CHEMISTRY METHOD 04/13/2024 3:16 PM [facility] eGFR 71 >=60 mL/min/1. 73m2 LAB CHEMISTRY METHOD 04/13/2024 3:16 PM [facility] Comment:Calculation based on the??Chronic Kidney Disease Epidemiology Collaboration (CKD-EPI) equation refit??without adjustment for race. BUN/Creatinine Ratio 18.7 LAB CHEMISTRY METHOD 04/13/2024 3:16 PM [facility] Calcium 9.5 8.5 - 10.5 mg/dL LAB CHEMISTRY METHOD 04/13/2024 3:16 PM [facility] AST (SGOT) 24 10 - 42 unit/L LAB CHEMISTRY METHOD 04/13/2024 3:16 PM [facility] ALT (SGPT) 29 10 - 60 unit/L LAB CHEMISTRY METHOD 04/13/2024 3:16 PM [facility] Alkaline Phosphatase 108 42 - 121 unit/L LAB CHEMISTRY METHOD 04/13/2024 3:16 PM [facility] Total Protein 6.8 6.0 - 8.0 g/dL LAB CHEMISTRY METHOD 04/13/2024 3:16 PM [facility] Albumin 3.8 3.2 - 5.0 g/dL LAB CHEMISTRY METHOD 04/13/2024 3:16 PM [facility] Total Bilirubin 0.9 0.0 - 1.4 mg/dL LAB CHEMISTRY METHOD 04/13/2024 3:16 PM [facility] Blood Venous blood specimen / Unknown Venipuncture / Unknown 04/13/2024 10:50 AM EST 04/13/2024 10:50 AM EST us Farrukh Epps MD LAB BLOOD ORDERABLES Final Resu lt [facility] [address] [place] [address], * MG Mammo Digital Diagnostic w Elio bilat (02/16/2024 10:05 AM EST) Anatomical Region Laterality Modality Breast Bilateral Mammography 02/16/2024 10:0 5 AM EST Impressions 02/16/2024 10:25 AM EST BILATERAL BREASTS: Benign, no evidence of malignancy. Normal interval follow-up is recommended in 12 months. Findings and recommendations were conveyed to the patient via nuclear technologist. ?? BREAST DENSITY: B - There are scattered areas of fibroglandular density. ?? BI-RADS CATEGORY: 2 - BENIGN RECOMMENDATION: Mammography: Diagnostic bilateral mammogram recommended in 1 year. Mammo Location: [facility], [address] [place] [address], [id number], . -------- FINAL REPORT -------- Dictated By: Wes Moran Dictated Date: 02/16/2024 10:05 ET Assigned Physician: Wes Moran Reviewed and Electronically Signed By: Wes Moran Signed Date: 02/16/2024 10:25 ET Workstation ID: [id number] Transcribed By: Self Edit Transcribed Date: 02/16/2024 10:20 ET Narrative 02/16/2024 10:25 AM EST HISTORY: Personal history of left breast cancer (invasive ductal carcinoma), status post lumpectomy May 2023. ??Completed adjuvant radiation. STUDY: Bilateral diagnostic mammography with tomosynthesis and CAD TECHNIQUE: Bilateral digital diagnostic mammography is obtained and read in conjunction with computer-aided detection. ??Tomosynthesis as well as 2-D C view imaging were obtained. COMPARISON: Comparison made to multiple prior, most recent left diagnostic mammogram on April 04, 2023, and most remote . RIGHT BREAST: No significant masses, suspicious calcifications or other abnormalities are seen. LEFT BREAST: ??Status post lumpectomy associated with local presumed chronic postoperative seroma. No significant masses, suspicious calcifications or other abnormalities are seen. Procedure Note Wes Moran MD - 02/16/2024 HISTORY: Personal history of left breast cancer (invasive ductalcarcinoma), status post lumpectomy May 2023. Completed adjuvantradiation. STUDY: Bilateral diagnostic mammography with tomosynthesis and CAD TECHNIQUE: Bilateral digital diagnostic mammography is obtained and readin conjunction with computer-aided detection. Tomosynthesis as well as2-D C view imaging were obtained. COMPARISON: Comparison made to multiple prior, most recent left diagnosticmammogram on April 04, 2023, and most remote . RIGHT BREAST: No significant masses, suspicious calcifications or otherabnormalities are seen. LEFT BREAST: Status post lumpectomy associated with local presumedchronic postoperative seroma. No significant masses, suspiciouscalcifications or other abnormalities are seen. IMPRESSION: BILATERAL BREASTS: Benign, no evidence of malignancy. Normal intervalfollow-up is recommended in 12 months. Findings and recommendations were conveyed to the patient via mammographytechnologist. BREAST DENSITY: B - There are scattered areas of fibroglandular density. BI-RADS CATEGORY: 2 - BENIGN RECOMMENDATION: Mammography: Diagnostic bilateral mammogram recommended in 1 year. Mammo Location: [facility], [address] [place] [address], [id number], . -------- FINAL REPORT -------- Dictated By: Wes Moran Dictated Date: 02/16/2024 10:05 ET Assigned Physician: Wes Moran Reviewed and Electronically Signed By: Wes Moran Signed Date: 02/16/2024 10:25 ET Workstation ID: [id number] Transcribed By: Self Edit Transcribed Date: 02/16/2024 10:20 ET us Farrukh pEps MD IMG BI PROCEDURES Final Result * Diabetes Foot Exam (10/10/2023) Pathologist [facility] Diabetes: Annual Foot Exam abstracted Historical Provider HEALTH MAINTENANCE Final Result * Diabetes Eye Exam (09/21/2023) [facility] Diabetes: Annual Retina Eye Exam abstracted [facility] Provider HEALTH MAINTENANCE Final Result * Pap Smear (08/20/2022) Pathologist [facility] Pap smear no interpretation , abstracted [facility] Provider HEALTH MAINTENANCE Final Result * Colonoscopy (04/01/2014) Pathologist [facility] Colonoscopy no interpretation , abstracted Anatomical Region Laterality Modality Other [facility] Provider HEALTH MAINTENANCE Final Result * Hepatitis C Screening (10/20/2012) Pathologist [facility] Hepatitis C Screening abstracted [facility] Provider HEALTH MAINTENANCE Final Result from Last 3 Months or Most Recently Relevant to Health Maintenance Insurance [employer] Care Teams 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
--- OUTSIDE RECORDS SUMMARY | 2024-07-12 06:29 | XMS_ITS | Data Portability ---
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 Warren for which she plans on continuing. She is not currently considering knee replacement surgery however she wanted this visit to go over details of surgery when she makes that decision. She will call us when she is ready she will continue her current care with her provider for which she feels comfortable with. If she has any questions or concerns she should contact my office. When she is ready for knee surgery she can be scheduled with Dr. Sheehan Patient was seen and evaluated by Nikko Pena PA-C in indirect conjuction with Documenting Provider: Tyler Sheehan MD . He/She agrees with history, physical examination, tests/diagnostic imaging, and treatment plan. Additional treatment plan discussed with the patient (only initiated if in boldface font) otherwise not applicable. Treatment may include the following; - Provider focused nonsteroidal anti-inflammator y regimen (discussed were the pros, cons, benefits and risks as well as any black box warnings) in patients over 60 years old they should be very cautious in taking these medications due to potential decreased kidney function and or elevated blood pressure. - Analgesic pain medication for pain suppression (discussed were the pros, cons, benefits and risks as well as any black box warnings) - The use of topical pain relieving medication were discussed - The use of ice to decrease inflammation and pain - The use of assistive ambulatory devices for ambulation and fall prevention - Formal specific guided physical therapy program I reviewed my findings at length with the patient today. ? ? ?We discussed the nature and etiology of this problem along with current treatment options. We discussed the expected course and outcomes and what to expect. We also discussed risks and benefits. ? ? ? All of their questions were answered today, and there was exhibited understanding and comprehension of all that was discussed. Time Spent: 10 minutes were spent reviewing previous imaging and charting. ? ? ?10 minutes were spent obtaining patient history. ? ? ?5 minutes were spent on physical exam. ? ? ?5? ? ?minutes were spent explaining diagnosis and assessment. Today's documentation was made using voice recognition software. This note may contain grammatical errors secondary to the software. [email or web address] Not available 01/06/2023 13:05:25 Plan of Treatment Reminders Order Date Submit Date Provider Last Modified By Organization Details Last Modified Time Details Appointments None record ed. Lab None record ed. Referral None record ed. Procedures None record ed. Surgeries None record ed. Imaging XR, knee, 4 or more view 023 06/19/19 23 [email or web address] [facility], [address], [address], [place], [address], 3 15:39:14 Medication Orders None record ed. Patient TargetsNo targets recorded. Patient Instructions Encounter Date Encounter Id Patient Instructions Last Modified By Organization Details Last Modified Time 06/18/2022 [id number] AP, lateral, Stout, and patellar views of the left knee demonstrate left knee degenerative joint disease with joint space narrowing, osteophyte formation, and subchondral sclerosis. [id number] articulation in the medial compartment. [email or web address] Not available 06/18/2022 14:03:04 Reason for Referral None Reported. Results Created Date Observation Date Name Description Value Unit Range Abnormal Flag Note LastModifiedBy Organization Detail LastModifiedTime 05/21/19 23 XR, knee No observ ation record ed. [email or web address] Not Available 2022 10:35:30 Result Notes None recorded. Problems Name Problem SNOMED Code Status Onset Date Resolution Date Notes Provider Name and Address Organization Details Recorded Time Osteoarthri tis of left knee joint [id number] 09 Active 2022 NIKKO PENA PA-C [address] [facility], [facility] [place], [address] [facility] 3 13:04:16 Problem Notes None recorded. Procedures Surgical History Date Name Laterality Status Provider Name and Address Organization Details Recorded Time Spine Surgery completed Jose Nye [facility], [facility] 06/18/2022 13:45:17 Imaging Results Imaging Date Name Status LastModified by Organiz ation Details LastModified Time 05/20/2022 XR, knee completed [email or web address] Information no t available 05/20/2022 10:35:30 Procedure Notes None recorded. Medical Equipment None Reported. Allergies Allergen ID Allergen Name Allergen Category Reaction Reaction Severity Criticality Documentation Date Start Date Code Code System Note Provider Name and Address Organization Details Recorded Time 2358 metformin medicatio n Not available Not available Not available 06/18/2022 6809 RxNorm Jose Nye [facility], [facility], [facility] 3 13:43:33 2359 Victoza medicatio n Not available Not available Not available 06/18/2022 [id number] 3 RxNorm Jose Nye [facility], [facility], P 3 13:43:42 Medications Name Sig Start Date Stop Date Status Note LastModified by Organization Details LastModified Time amoxicillin 500 mg capsule TAKE 1 CAPSULE BY MOUTH EVERY 8 HOURS UNTIL FINISHED active Not Available Not Available No t Available atorvastati n 10 mg tablet TAKE 1 TABLET BY MOUTH EVERYDAY AT BEDTIME active Not Available Not Available No t Available ibuprofen 800 mg tablet TAKE 1 TABLET BY MOUTH EVERY 8 HOURS NEEDED FOR PAIN active Not Available Not Available No t Available nystatin 100,000 unit/gram topical ointment APPLY TOPICALLY TWICE A DAY X 10 DAYS active Not Available Not Available No t Available sertraline 100 mg tablet TAKE 1 TABLET BY MOUTH EVERY DAY active Not Available Not Available No t Available methylpredn isolone 4 mg tablet PLEASE SEE ATTACHED FOR DETAILED DIRECTION S active Not Available Not Available No t Available lorazepam 0.5 mg tablet TAKE 1 TABLET BY MOUTH 2 TIMES DAILY NEEDED FOR ANXIETY FOR UP TO 30 DAYS. active Not Available Not Available No t Available trazodone 100 mg tablet TAKE 2 TABLETS BY MOUTH EVERY NIGHT AT BEDTIME active Not Available Not Available No t Available doxycycline monohydrate 100 mg capsule TAKE 1 CAPSULE BY MOUTH TWICE A DAY WITH FOOD AND A FULL GLASS OF WATER. WEAR SUNSCREEN . active Not Available Not Available No t Available lisinopril 10 mg tablet TAKE 1 TABLET BY MOUTH EVERY DAY active Not Available Not Available No t Available metronidazo le 0.75 % topical cream APPLY TO ENTIRE FACE ONCE A DAY active Not Available Not Available No t Available gabapentin 300 mg capsule TAKE 1 CAPSULE BY MOUTH FOUR TIMES A DAY active Not Available Not Available No t Available hydrochloro thiazide 25 mg tablet TAKE 1 TABLET BY MOUTH EVERY DAY active Not Available Not Available No t Available albuterol sulfate HFA 90 mcg/actuati on aerosol inhaler INHALE 2 PUFFS EVERY 4-6 HOURS BY INHALATIO N ROUTE DIRECTED. active Not Available Not Available No t Available metronidazo le 0.75 % topical gel APPLY TO CLEANSE FACE TWICE DAILY active Not Available Not Available No t Available loratadine 10 mg tablet TAKE 1 TABLET BY MOUTH EVERY DAY active Not Available Not Available No t Available diazepam 5 mg tablet PLEASE SEE ATTACHED FOR DETAILED DIRECTION S active Not Available Not Available No t Available Vitamin D3 25 mcg (1,000 unit) tablet TAKE 1 TABLET BY MOUTH EVERY DAY active Not Available Not Available No t Available cyclobenzap rine 5 mg tablet TAKE 1 TABLET BY MOUTH 3 TIMES DAILY NEEDED FOR MUSCLE SPASMS FOR UP TO 15 DAYS. active Not Available Not Available No t Available azelaic acid 15 % topical gel APPLY TO ENTIRE FACE ONCE A DAY active Not Available Not Available No t Available BD Ultra-Fine Short Pen Needle 31 gauge x 5/16 USE UP TO 6 NEEDLES PER DAY active Not Available Not Available No t Available Lantus Solostar U-100 Insulin 100 unit/mL (3 mL) subcutaneou s pen INJECT SUBCUTANE OUSLY 78-82 UNITS DIRECTED DAILY active Not Available Not Available No t Available Humalog KwikPen (U-100) Insulin 100 unit/mL subcutaneou s PLEASE SEE ATTACHED FOR DETAILED DIRECTION S active Not Available Not Available No t Available oxycodone 10 mg tablet TAKE 1 TABLET BY MOUTH 4 TIMES DAILY NEEDED FOR PAIN. active Not Available Not Available No t Available Dexcom G6 Sensor device 3 SENSORS PER 1 MONTH SUPPLY USE DIRECTED 01/06 completed Not Available Not Available Not Available Dexcom G6 Die Casting Machine Setter USE DIRECTED 01/06 completed Not Available Not Available Not Available Dexcom G6 Transmitter device USE DIRECTED 01/06 completed Not Available Not Available Not Available FreeStyle Cy 2 Sensor kit USE 1 EVERY 14 DAYS active Not Available Not Available No t Available FreeStyle Cy 2 [place] USE DIRECTED 01/06 completed Not Available Not Available Not Available Vitals Date Recorded Body height Body mass index (BMI) Body weight Provider Name and Address Organization Details Last Updated DateTime 06/18/2022 162.56 cm 48.1 kg/m2 710420.86 g Jose Dicksonnchard [facility] 06/18/2022 13:43:53 Date Recorded Body height Provider Name an d Address Organization Details Last Updated DateTime 01/06/2023 162.56 cm Nellie Krause [facility], [facility] 01/06/2023 11:21:28 Social History Question Answer Notes LastModified by Organizat ion Details LastModified Time Tobacco Smoking Status Never Smoker Jose Dicksonnchard null, [facility] 06/18/2022 13:44:01 What Is Your Level Of Alcohol Consumption? None [email or web address] Information not available 06/18/2022 Do You Use Any Illicit Or Recreational Drugs? No Information not available 06/18/2022 Do You Or Have You Ever Used Any Other Forms Of Tobacco Or Nicotine? No [email or web address] Information not available 06/18/2022 Sex: Unknown Functional Status None recorded. Mental Status None recorded. Family History Relationship Description Onset Age of this Age Resolved Age Notes LastModified by Organization Details LastModified Time Father Arthritis Not avai lable 06/18/2022 13:44:31 Father Diabetes mellitus [email or web address] Not available 13:44:43 Mother Arthritis [email or web address] Not avai lable 06/18/2022 13:44:31 Mother Diabetes mellitus [email or web address] Not available 13:44:43 Medical History Condition Response Diabetes Y Hypertension Y Gynecological HistoryNo gynecological history recorded. Obstetrics History GPAL:G 0 P 0 0 0 0 Past Encounters Encounter ID Performer Location Encounter Start Date Encounter Closed Date Diagnosis/Indication Diagnosis SNOMED-CT Code Diagnosis ICD10 Code Diagnosis Note [id number] MD ÁNGEL Da Silva [facility] [address] [facility] [address] [place] [address] 06/18/2022 13:23:36 06/18/2022 14:03:40 Pain of left knee joint [id number] 11326 M25.562 Osteoarthr itis of left knee joint 1329985828 00899 M17.12 [id number] SALVADOR HAMEED [facility] [address] [facility] [address] [place] [address] 01/06/2023 10:56:13 01/06/2023 11:20:57 Osteoarthritis of left knee joint 4483216854 02435 M17.12 Health Concerns Section Related Observation LastModified by Organization Detai ls LastModified Time None Recorded Concern Status LastModified by Organization Details LastModified Time None Recorded Advance Directives Directive None Recorded Payers Encounter Date Sequence Insurance Name Policy Number Policy Steward Covered Member ID Steward Member ID Guarantor Name 06/18/2022 1 [facility] - MEDICARE PREFERRED (MEDICARE REPLACEMENT HMO) ESTRELLITA Rios [id number] 1 Cristina Rios 01/06/2023 1 [employer] - MEDICARE PREFERRED (MEDICARE REPLACEMENT HMO) [facility] Cristina Rios [id number] 1 Cristina Rios Notes Date Note Type Note Provider Name and Address Organization Details Recorded Time 06/18/2022 text/html HPI:Patient is h ere today with complaints of left knee pain. ?The patient is experiencing left knee pain, which is moderate in intensity, and has recently worsened. The pain limits some activities of daily living. Walking tolerance is reduced. Pain and restriction of function are moderate at this time. She has a history of a right total knee replacement which was performed approximately 20 years ago which is performing well. She underwent a gel injection for her left knee approximately 2 weeks ago which is not helpful at this moment. She has had other injections in the past. Review of systems is negative for other rapidly progressive neurological disorder, chest pain, shortness of breath, fevers, chills, or any signs of active or persistent local or systemic infection. Physical Exam? ? ?: Patient is well nourished, well-developed, in no acute distress, with appropriate mood and affect. The patient is oriented to time, place, and person. Examination of the contralateral knee shows normal range of motion, strength, no tenderness, and intact skin. The affected limb is well-perfused, without skin lesions, shows a grossly normal motor and sensory examination. Left knee motion is {{reduced and does cause significant pain* is not reduced and does not cause significant pain}}. The left knee moves from 5-120 degrees. The knees are stable within those [id number]. The alignment of the left knee is {{varus* valgus destiny tral}} . Muscle strength is normal. Pedal pulses are palpable. Hip examination, including flexion and internal rotation, was negative in that groin pain was not produced. Assessment/Plan? ? ?: The patient has left knee arthritis. An extensive discussion was conducted on the natural history of the disease and the variety of surgical and non-surgical options available to the patient including, but not limited to non-steroidal anti-inflammatory medications, steroid injections, viscosupplementatio n, physical therapy, maintenance of ideal body weight, and reduction of activity. At this time she is not interested in surgical intervention. She is going to continue conservative management. We will have her follow-up in 6 months with OLIVER Pineda. Tyler Sheehan MD [address], [address], [place] [facility] 06/18/2022 14:03:31 01/06/2023 text/html This is a 63-year-old female who is already seen Dr. Sheehan for consultation regarding left knee replacement. She is not interested at this time however she sees Dr. Warren who has been giving her cortisone injections and gel injections. Her last cortisone was less than 2 months ago and she has an upcoming gel injection she is here for discussion regarding possible surgery that she is not considering at this time NIKKO PENA PA-C [address] [address], [place], [address], [place] [facility] 01/06/2023 13:06:21 OBGyn Episode No OBEpisode recorded.
--- OUTSIDE RECORDS SUMMARY | 2024-07-12 06:29 | XMS_ITS | Clinical Summary ---
Author Organization [facility] Address [address] [place] [address] Care Team Providers Care Leather Goods Maker Name Role Phone Farrukh Epps MD Primary Care Provider [phone] Allergies Active Allergy Reactions Criticality Noted Date Comments Metformin Nausea And Vomiting 06/30/2020 Medications Medication Sig Dispensed Refills Start Date End Date Status gabapentin (NEURONTIN) 300 MG capsule Take 1 capsule (300 mg total) by mouth 4 (four) times a day. 0 Active oxyCODONE (ROXICODONE) 5 MG immediate release tablet Take 2 tablets (10 mg total) by mouth every 6 (six) hours as needed for pain. 0 Active ibuprofen 800 MG tablet Take by mouth every 8 (eight) hours as needed for pain. 0 Active Loratadine 10 MG CAPS Take 1 capsule by mouth daily. 0 Active lisinopril (PRINIVIL,ZESTRIL) tablet 10 mg Take 1 tablet (10 mg total) by mouth daily. 0 Active sertraline (ZOLOFT) 100 MG tablet Take 125 mg by mouth daily. 0 Active hydroCHLOROthiazide (HYDRODIURIL) tablet 25 mg Take 1 tablet (25 mg total) by mouth daily. 0 Active traZODone (DESYREL) 100 MG tablet Take 2 tablets (200 mg total) by mouth every night at bedtime. 0 Active LORazepam (ATIVAN) 0.5 MG tablet Take 1 tablet (0.5 mg total) by mouth every 6 (six) hours as needed. 0 Active insulin lispro (HumaLOG) injection 100 units/mL Inject 15 Units under the skin 5 (five) times a day. 0 Active insulin glargine (LANTUS) injection 100 units/mL Inject 78 Units under the skin every night at bedtime. 0 Active fluticasone (FLONASE) 50 MCG/ACT nasal spray spray/apply 1 spray in each nostril 2 (two) times a day. 0 Active doxycycline (VIBRA-TABS) 100 MG tablet Take 1 tablet (100 mg total) by mouth 2 (two) times a day. 0 Active atorvastatin (LIPITOR) tablet 10 mg Take 1 tablet (10 mg total) by mouth every evening. 0 Active Semaglutide, 1 MG/DOSE, 4 MG/3ML SOPN Inject 0.75 mL (1 mg total) under the skin once a week. 0 Active triamcinolone acetonide (KENALOG-40) 40 MG/ML injection Inject 1 mL (40 mg total) into the articular space once. 0 Active nystatin (MYCOSTATIN) ointment Apply topically 2 (two) times a day. 0 Active Cholecalciferol (Vitamin D-[address]) 25 MCG (1000 UT) tablet Take 1 tablet (1,000 Units total) by mouth daily. 0 Active metroNIDAZOLE (METROGEL) 0.75 % gel Apply topically 2 (two) times a day. 0 Active Triamcinolone Acetonide (Nasacort Allergy 24HR) 55 MCG/ACT AERO spray or apply 2 sprays inside Nose daily. 0 Active OMEGA 3-6-9 FATTY ACIDS PO Take by mouth. 0 Active letrozole (FEMARA) 2.5 MG tablet Take 1 tablet (2.5 mg total) by mouth daily 30 tablet 5 08/30/2023 Active Active Problems Problem Noted Date Diagnosed Date Malignant neoplasm of upper- inner quadrant of left breast in female, estrogen receptor positive 07/29/2023 Postlaminectomy syndrome of lumbosacral region 0 07/02/2020 Social History Tobacco Use Types Packs/Day Years Used Date Smoking Tobacco: Never Smokeless Tobacco: Never Alcohol Use Standard Drinks/Week Comments Never 0 (1 standard drink = 0.6 oz pur e alcohol) Sex and Gender Information Value Date Recorded Sex Assigned at Not on file Gender Identity Not on file Sexual Orientation Not on file Job Start Date Occupation Industry Not on file Not on file Not on file Last Filed Vital Signs Vital Sign Reading Time Taken Comments Blood Pressure 82/47 12/26/2023 10:30 AM EDT Pulse 97 12/26/2023 10:30 AM EDT Temperature 35.8 ??C (96.4 ??F) 12/26/2023 10:30 AM E DT Respiratory Rate - - Oxygen Saturation 97% 12/26/2023 10:30 AM EDT Inhaled Oxygen Concentration - - Weight 113.4 kg (250 lb) 12/26/2023 10:30 AM EDT Height 162.6 cm (5' 4 ) 10/28/2023 11:31 AM EDT Body Mass Index 42.91 10/28/2023 11:31 AM EDT Plan of Treatment Health Maintenance Due Date Last Done Comments Hepatitis C Screening 1960 Depression Screening 1972 BMI Counseling 1978 Preventative Health Evaluation 1978 Shingrix-Zoster Vaccine (1 of 2) 10/31/1979 Cervical Cancer Screening (Pap Smear) 1981 Colon Cancer Screening (Colonoscopy) 2005 Pneumococcal Vaccine (2 of 2 - PCV) 12/21/2007 12/20/2006 Breast Cancer Screening (Mammogram) 2010 DTap / Tdap / Td (2 - Td or Tdap) 01/09/2018 01/10/2008 RSV Adult > 60+ Yrs or (1 - Risk 60-74 years 1-dose series) 2020 COVID-19 Vaccine ( - season) 2023 03/17/2021, 05/30/2020, 05/09/2020 Influenza Vaccine (#1) 2023 , 12/16/2020, 01/02/2019, Additional history exists Hepatitis B Vaccines Aged Out No long er eligible based on patient's age to complete this topic RSV Ped < 20 months Aged Out No longe r eligible based on patient's age to complete this topic Care Teams Leather Goods Maker Relationship Specialty Start Date End Date Farrukh Epps MD PCP - General Internal Medicine 09/06/19
--- OUTSIDE RECORDS SUMMARY | 2024-07-12 06:29 | XMS_ITS | Data Portability ---
Author Organization [place] [facility] Address [address] [place] [address] Care Team Providers Care Grease Renderer Name Role Phone NATIVIDAD HALL Primary Care Provider [phone] [facility] OTHER Assessment Encounter Date Assessment Date Assessment LastModified by Organization Details LastModified Time 04/28/2022 04/28/2022 Time On Scene with Patient: 00:44:32 Brief Overview: 61 y/o female new to with hx of HTN, hyperlipidemia, DM, depression, sciatica, carpal tunnel syndrome.pt reports since 04/22 she has had cough and chest congestion. cough productive with small amounts of clear sputum. she also reports intermittent wheezing and sob. deep breaths trigger coughing fits. she has also now developed sinus congestion clear- yellow drainage. she denies fever, chills, body aches. no nausea, vomiting, diarrhea, abdominal pain. she denies cp, dizziness, weakness. she tried otc dayquil yesterday no relief. no known sick contacts. she had covid in 2019 and is no followed by pulmonology since. Vital Signs: BP 128/70, HR 78, RR 20, T 99.5, O2 98% RA Exam: very pleasant 61 y/o female well appearing, deconditioned with elevated BMI, alert, NAD, ambulating with a walker. eyes: no injection, icterus or discharge, PERRLA. nose: nares patent no discharge. ears: TMs and EACs clear. mouth: moist mucous membranes no erythema, uvula is midline. no cervical lymphadenopathy. + maxillary and frontal sinus tenderness bilaterally. lungs: bilateral inspiratory and expiratory wheezes, no rales or rhonchi. heart: RRR no murmur rubs or gallops. no peripheral edema. skin: no rashes or lesions. strength is normal and equal bilaterally. cranial nerves III-XII intact. DDx considered, with rationale: Pneumonia: Considered due to low grade temp 99.5, wheezing bilaterally, pt is diabetic. Covid: considered but rapid is negative. CHF: considered but no reported weight gain and no peripheral edema. Results/ work up: Rapid covid was negative. CXR pending. Neb given during visit today see procedure note. symptoms improved with neb. Plan: Acute Bronchitis: rest and push fluids. use of humidifier in her bedroom. ok to take otc tylenol as directed on the package for fever. stop dayquil/ nyquil. ok to take otc plain mucinex take as directed on the package. start Rx Albuterol inhaler 2 puffs q 4-6 hrs prn wheezing, tightness, sob. pt will call and schedule appt for CXR. follow up with pcp in 3-5 days or sooner prn. go to the ER with any new or worsening symptoms cp, increased sob, wheezing, fever, dizziness, weakness, hemoptysis, vomiting. DM: currently controlled, followed by PCP, using continous glucose monitor. follow up with pcp as directed. Proper Personal Protective Equipment (PPE), including gloves, eye protection and masks were donned and doffed appropriately and all equipment cleaned using approved technique with germicidal disposable wipes prior to and after care of this patient according to [facility] infection prevention protocols. [email or web address] Not available 04/28/2022 13:22:59 Plan of Treatment Reminders Order Date Submit Date Provider Last Modified By Organization Details Last Modified Time Details Appointments None recorded. Lab rapid SARS CoV 2 Ag, QL IA, respiratory specimen 2022 023 [email or web address] 5 [facility], [address] [place], [address], 3 12:56:07 Referral None recorded. Procedures None recorded. Surgeries None recorded. Imaging XR, chest, 2 view - cough, wheezing 2022 023 [facility] Corporate Office ([facility] [employer]), [address] [facility], [place], [address], 3 11:07:25 Medication Orders albuterol sulfate concentrate 2.5 mg/0.5 mL solution for nebulizatio n 2022 023 [email or web address] 5 [id number], [address] [place], [address], 3 12:55:57 ipratropium bromide 0.02 % solution for inhalation 2022 023 [email or web address] 5 [id number], [address] [place], [address], 3 12:56:01 albuterol sulfate HFA 90 mcg/actuati on aerosol inhaler 2022 023 [id number], [address] [place], [address], 3 12:56:23 Patient TargetsNo targets recorded. Patient InstructionsNo instructions recorded. Reason for Referral None Reported. Results Created Date Observation Date Name Description Value Unit Range Abnormal Flag Note LastModifiedBy Organization Detail LastModifiedTime 04/28/1904/28/2022 rapid SARS CoV 2 Ag, QL IA, respi rator y speci men Covid-19 (ref: neg) negati ve Not Available [facility] [address] [place], [address], 04/28/2022 12:29:16 04/28/19 23 04/28/2022 rapid SARS CoV 2 Ag, QL IA, respi rator y speci men Control Visual ized/V alid Not Available [facility] [address] [place], [address], 04/28/2022 12:29:16 04/28/19 23 04/28/2022 rapid SARS CoV 2 Ag, QL IA, respi rator y speci men Location [facility] Esperanza solorzano s , [address] [place] [address], [id number] Not Available [facility] [address] [place], [address], 04/28/2022 12:29:16 04/29/19 23 04/29/2022 XR, chest , 2 view XRAY CHEST 2 VIEW FINDIN GS: Lungs: No focal consol idatio n. Pulmon pooja vascul ature is within normal limits . Promin ent lung markin gs. Pleura : No pneumo thorax . No pleura l effusi on. Heart and Medias tinum: The cardio medias tinal silhou ette is enlarg ed in size and contou r. CONCLU ARNAV: No acute cardio pulmon pooja proces s. ELECTR ONICAL LY SIGNED BY WES SALAZAR M.D. 023 11:00: 16 AM EST. XRAY CHEST 2 VIEW Result s: Lungs: No focal consol idatio n. Pulmon pooja vascul ature is within normal limits . Promin ent lung markin gs. Pleura : No pneumo thorax . No pleura l effusi on. Heart and Medias tinum: The cardio medias tinal silhou ette is enlarg ed in size and contou r. Conclu arnav: No acute cardio pulmon pooja proces s. Electr onical ly signed by WES SALAZAR M.D. 023 11:00: 16 AM EST. [email or web address] [employer] [address], [address], 04/29/2022 14:57:44 Result Notes None recorded. Procedures Surgical History Date Name Laterality Status Provider Name and Address Organization Details Recorded Time 04/28/19 Nebulizer treatment - DH completed OLIVER Mace [address] [place], [address], [place] [facility] 04/28/2022 12:55:44 total knee replacement completed OLIVER Mace [address] [place], [address], [place] [facility] 04/28/2022 12:21:27 lumbar spinal fusion completed OLIVER Mace [address], [place], [address], [place] [facility] 04/28/2022 12:21:48 Imaging Results Imaging Date Name Status LastModified by Organiz ation Details LastModified Time 04/29/2022 XR, chest, 2 view completed [email or web address] [id number] [facility] [address], [place], [address], 04/29/2022 14:57:44 Procedure Notes None recorded. Medical Equipment None Reported. Allergies Allergen ID Allergen Name Allergen Category Reaction Reaction Severity Criticality Documentation Date Start Date Code Code System Note Provider Name and Address Organization Details Recorded Time 059178 metformin medicatio n Not available Not available Not available 04/28/2022 6809 [facility] OLIVER Mace [address] [place], [address], [place] [facility] 3 12:16:09 [id number] Victoza medicatio n Not available Not available Not available 04/28/2022 37821 3 RxOLIVER Baldwin [address] [place], [address], [place] [facility] 3 12:16:17 Medications Name Sig Start Date Stop Date [...] TAKE 2 TABLETS BY MOUTH AT BEDTIME active Not Available Not Available [...] metronidazo le 0.75 % topical gel APPLY TOPICALLY TO CLEANSE FACE TWICE DAILY active Not Available Not Available No t Available loratadine 10 mg tablet TAKE 1 TABLET BY MOUTH EVERY DAY active Not Available Not Available No t Available ipratropium bromide 0.02 % solution for inhalation Atrovent 0.5 mg solution nebulized on scene. Time administe red:12:38 pm 2022 active Not Available Not Available Not Avai lable albuterol sulfate concentrate 2.5 mg/0.5 mL solution for nebulizatio n Albuterol 2.5 mg solution nebulized on scene. Time administe red:12:38 pm 2022 active Not Available Not Available Not Avai lable albuterol sulfate active Not Available Not Available Not Available BD Ultra-Fine Short Pen Needle 31 gauge x 5/16 USE UP TO 6 NEEDLES PER DAY 04/28 completed Not Available Not Available Not Available cholecalcif raad (vitamin D3) 25 mcg (1,000 unit) tablet TAKE 1 TABLET BY MOUTH EVERY DAY active Not Available Not Available No t Available Lantus Solostar U-100 Insulin 100 unit/mL (3 mL) subcutaneou s pen INJECT 78-82 UNITS DIRECTED DAILY. active Not Available Not Available No t Available Humalog KwikPen (U-100) Insulin 100 unit/mL subcutaneou s INJECT 15 UNITS SUBCUTANE OUSLY INTO THE SKIN 5 TIMES DAILY. active Not Available Not Available No t Available oxycodone 10 mg tablet TAKE 1 TABLET BY MOUTH 4 TIMES A DAY NEEDED FOR PAIN active Not Available Not Available No t Available OneTouch Delica Lancets 33 gauge USE 3 TIMES DAILY TO TEST BLOOD SUGAR 04/28 completed Not Available Not Available Not Available Dexcom G6 Sensor device 3 SENSORS PER 1 MONTH SUPPLY USE DIRECTED active Not Available Not Available No t Available Dexcom G6 District Adviser USE DIRECTED active Not Available Not Available No t Available Dexcom G6 Transmitter device USE DIRECTED 04/28 completed Not Available Not Available Not Available FreeStyle Cy 2 Sensor kit CHANGE EVERY 14 DAYS active Not Available Not Available No t Available FreeStyle Cy 2 [place] USE DIRECTED 04/28 completed Not Available Not Available Not Available Vitals Date Recorded Body temperature Respiratory rate Oxygen saturation Oxygen saturation in Arterial blood by Pulse oximetry Heart rate Heart rate Oxygen saturation Oxygen saturation in Arterial blood by Pulse oximetry Systolic blood pressure Diastolic blood pressure Provider Name and Address Organization Details Last Updated DateTime 3 99.5 [degF] 20 /min 98 % 98 % 78 /min 85 /min 98 % 98 % 128 mm[Hg] 70 mm[Hg] Not Available [facility] 3 12:21:34 Social History Question Answer Notes LastModified by Organizat ion Details LastModified Time Tobacco Smoking Status Never Smoker OLIVER Mace [address] [place], [address], [place] [facility] 04/28/2022 12:20:37 What Is Your Level Of Alcohol Consumption? None [email or web address] Information not available 04/28/2022 Excessive Alcohol Or Drug Use No [email or web address] Information not available 04/28/2022 Does This Patient Have A PCP? Yes [email or web address] Information not available 04/28/2022 Has The Patient Seen Their PCP In The Past 6 Months? Yes [email or web address] Information not available 04/28/2022 Do You Use Any Illicit Or Recreational Drugs? No [email or web address] Information not available 04/28/2022 Sex: Unknown Functional Status None recorded. Mental Status None recorded. Family History Relationship Description Onset Age of this Age Resolved Age Notes LastModified by Organization Details LastModified Time Father Diabetes mellitus [email or web address] Not available 04/28 12:20:11 Medical History Condition Response Diabetes Y Coronary Artery Disease N CHF N Parkinson's Disease N Cancer N Dementia N Stroke N Hypothyroidism N Depression Y COPD N Asthma N High Cholesterol Y Rheumatoid Arthritis N Pulmonary Embolism N Hypertension Y A-fib N Osteoporosis N Kidney Disease N Gynecological HistoryNo gynecological history recorded. Obstetrics History GPAL:G 0 P 0 0 0 0 Past Encounters Encounter ID Performer Location Encounter Start Date Encounter Closed Date Diagnosis/Indication Diagnosis SNOMED-CT Code Diagnosis ICD10 Code Diagnosis Note [id number] OLIVER Mace [facility] [address] [place] [address] 04/28/2022 12:14:31 04/29/2022 13:42:44 Acute bronchitis 56247388 J20.9 Insulin tr eated type 2 diabetes mellitus 355065291 Z79.4 Health Concerns Section Related Observation LastModified by Organization Detai ls LastModified Time None Recorded Concern Status LastModified by Organization Details LastModified Time None Recorded Advance Directives Directive None Recorded Payers Insurance Date Sequence Insurance Name Policy Number Policy Steward Covered Member ID Steward Member ID Guarantor Name 04/04/2023 1 [facility] - MEDICARE PREFERRED (MEDICARE REPLACEMENT HMO) [employer] Cristina Rios [id number] Cristina Rios 04/27/2022 1 [facility] - MEDICARE PREFERRED (MEDICARE REPLACEMENT HMO) [employer]AM[employer] Cristina Rios [id number] Cristina Rios 04/27/2022 1 [facility] - MEDICARE PREFERRED (MEDICARE REPLACEMENT HMO) HAMPD Cristina Rios [id number] Cristina Rios 04/04/2023 [facility] Cristina Rios [id number] Cristina Rios 04/27/2022 1 *SELF PAY* Cristina Rios [id number] Cristina Rios Notes Date Note Type Note Provider Name and Address Organization Details Recorded Time 04/28/2022 text/html 61 y/o female ne w to with hx of HTN, hyperlipidemia, DM, depression, sciatica, carpal tunnel syndrome. pt reports since 04/22 she has had cough and chest congestion. cough productive with small amounts of clear sputum. she also reports intermittent wheezing and sob. deep breaths trigger coughing fits. she has also now developed sinus congestion clear- yellow drainage. she denies fever, chills, body aches. no nausea, vomiting, diarrhea, abdominal pain. she denies cp, dizziness, weakness. she tried otc dayquil yesterday no relief. no known sick contacts. she had covid in 2019 and is no followed by pulmonology since. pt has run out of her albuterol inhaler. pt has continuous glucose monitor, glucose at visit is 191- not fasting per pt. OLIVER Mace, [place], [address], [place] [facility] 04/28/2022 13:23:14 OBGyn Episode No OBEpisode recorded.
--- OUTSIDE RECORDS SUMMARY | 2024-07-12 06:29 | XMS_ITS ---
Author Name [facility] Organization Unknown History of Medication Use Medication Directions Dispensed Refills Start Date End Date Status amoxicillin 500 mg capsule TAKE 1 CAPSULE BY MOUTH EVERY 8 HOURS UNTIL FINISHED active azelaic acid 15 % topical gel APPLY TO ENTIRE FACE ONCE A DAY active cyclobenzaprine 5 mg tablet TAKE 1 TABLET BY MOUTH 3 TIMES DAILY NEEDED FOR MUSCLE SPASMS FOR UP TO 15 DAYS. active doxycycline monohydrate 100 mg capsule TAKE 1 CAPSULE BY MOUTH TWICE A DAY WITH FOOD AND A FULL GLASS OF WATER. WEAR SUNSCREEN. active gabapentin 300 mg capsule TAKE 1 CAPSULE BY MOUTH FOUR TIMES A DAY active hydrochlorothiazide 25 mg tablet TAKE 1 TABLET BY MOUTH EVERY DAY active ibuprofen 800 mg tablet TAKE 1 TABLET BY MOUTH EVERY 8 HOURS NEEDED FOR PAIN active Lantus Solostar U-100 Insulin 100 unit/mL (3 mL) subcutaneous pen INJECT SUBCUTANEOUSLY 78-82 UNITS DIRECTED DAILY active metronidazole 0.75 % topical cream APPLY TO ENTIRE FACE ONCE A DAY active metronidazole 0.75 % topical gel APPLY TO CLEANSE FACE TWICE DAILY active Allergies Allergen Reaction Severity Comment Documented Date Source Statu s METFORMIN ENS_AONECT VICTOZA ENS_AONECT Problems Problem Status Onset Date Problem Type Date of Resoluti on Source Osteoarthritis of left knee joint active 2023-01-06 ProblemAct ENS_AONECT Encounters Encounter Type Encounter Reason Primary Diagnosis Location Date Ambulatory [facility] 01/31/2024 Ambulatory [facility] 12/16/2023 Ambulatory [facility] 01/06/2023 Ambulatory [facility] 01/06/2023 Ambulatory [facility] 01/05/2023 Ambulatory [facility] 06/19/2022 Care Team Organization Name Specialty Phone Email Start Date End Da [email or web address] 2024
--- OUTSIDE RECORDS SUMMARY | 2024-07-12 06:29 | XMS_ITS | Encounter Summary ---
Author Organization [employer] Address [address] [place] [address] Care Team Providers Care Laundry Laborer Name Role Phone Farrukh Epps MD Primary Care Provider [phone] Encounter Details Date Type Department Care Team (Late st Contact Info) Description 12/26/2023 10:26 AM EDT Hospital Encounter TH HISTORIC ENCOUNTERS EASTERN CONVERSION ONLY Kaushik Lima MD [address] [place] [id number] Social History Tobacco Use Types Packs/Day Years [...] care for your loved ones. 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 [...] stage I T1cN0 invasive ductal breast cancer, ER/WY-positive, HER2- negative (1+), diagnosed in 03/2023. She [...] carcinoma, ER- strongly positive (greater than 99%), WY-strongly positive (greater than 98%), HER2-negative (1+), Ki-67 [...] stage I T1cN0 invasive ductal breast cancer, ER/WY-positive, HER2-negative (1+). She underwent a partial mastectomy [...] 10:45 AM EDT Office Visit Orthopedic Surgery [facility] [address] [facility] [address] [place] [address] Zabrina Carlson MD [address] [address] 08/10/2024 3:00 PM EDT Office Visit Adult [address] [address] Farrukh Epps MD [address] [place] [address] 09/26/2024 10:30 AM EDT Office Visit [facility] Hematology Oncology [address] [place] [phone] Kaushik Lima MD [address] [place] [phone] 11/12/2024 9:45 AM EDT Office Visit Pulmonolgy - [place] [address] [facility] [address] [place] [address] Yamila Veloz MD 175 [facility] [address] [place] [address] 11/12/2024 10:30 AM EDT Office Visit General Surgery - [place] [address] [facility] [address] [place] [phone] Terry Bernabe MD [address] [address] 11/15/2024 9:45 AM EDT Office Visit Adult Medicine [address] [phone] Farrukh Epps MD [address] [place] [address] 02/18/2025 11:20 AM EST Appointment Radiology Department - [address] [phone] documented as of this encounter Visit Diagnoses Not on filedocumented in this encounter Care Teams Laundry Laborer Relationship Specialty Start Date End Date Farrukh Epps MD [address] [place] [address] PCP - General Internal Medicine 09/05/19 documented as of this encounter
== END 2024-07-12 06:27 | disposition home or self-care (01) ==
LOC: CF 06:26
PROVIDERS: Visit Provider Internal Medicine
DX: M54.16 Radiculopathy, lumbar region (principal)
CPT/HCPCS: 62323; J1010; J2003; Q9967

== ENCOUNTER 2024-07-12 12:43 | Outpatient (AMB) | payer MEDICARE, SELFPAY ==
[2024-07-12 12:51] VITALS: BP 130/64; PULSE 84; O2SAT 93
--- NOTE | 2024-07-12 12:51 | MHC.OFFVIS ---
Vital Signs 07/12/24 12:51 07/12/24 14:01 Height 5 ft 4 in BP 130/64 138/76 Blood Pressure Location Rt brachial Rt brachial Position Sitting Sitting Pulse 84 83 Pulse Source Pulse Oximeter Pulse Oximeter Pulse Oximetry (%) 93 92 Oxygen Delivery Method Room Air Room Air Intake Visit Reasons: Caudal JAKE Allergies metformin Adverse Reaction (Severe, Verified 07/12/24 12:51) GI upset liraglutide [From Victoza] Adverse Reaction (Intermediate, Verified 07/12/24 12:51) GI upset HPI HPI Caudal JAKE: Details: Patient presents for scheduled procedure. Denies any recent cough, cold, infection, fever or other significant changes in medical history since last office visit. [facility] Medical History (Updated 12/10/22 @ 13:01 by REX Mack) Arthritis Back pain Insomnia Use of cane as ambulatory aid COVID Anxiety MAK on CPAP Diabetes HTN (hypertension) Lumbar post-laminectomy syndrome Surgical History (Updated 02/07/23 @ 13:39 by Briana Sabillon RN) Hx of carpal tunnel repair S/P placement of nerve stimulator Hx of tubal ligation Hx of colonoscopy History of total right knee replacement History of back surgery Family History Mother PONV (postoperative nausea and vomiting) Social History Patient Tobacco Use Status: Never used Tobacco Second Hand Smoke Exposure: No Current occupational status: disabled 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 Standard monitors were applied. The patient was placed in the prone position. The lumbosacral area was widely prepped with chloraprep and draped in sterile fashion. The skin overlying the target was anesthetized with 0.5% lidocaine. A 17 G needle was used to access the caudal epidural space using anatomic landmarks and x-ray guidance. We then threaded a catheter up to the L5/S1 level and injected contrast 1cc omnipaque 180 for verification of epidural spread. Following negative aspiration of heme or CSF, a mixture of 5 ml 0.5% lidocaine with 80 mg methylprednisolone was injected with minimal pressure into the epidural space. The needle was removed, skin cleansed and a sterile bandage was applied. The patient tolerated the procedure well and no complications were encountered. Following the procedure the patient's vital signs were stable. The patient was discharged home in good condition with post-procedural instructions. Time Out: Immediately prior to the procedure, the following was verbally confirmed that there is a signed consent form and that the correct patient, planned procedure, site and side are consistent with documentation and that necessary equipment and/or blood products are available prior to the start of the case. Complications: none EBL: <5 cc Coding 35422 - Caudal/Lumbar Epidural/Interlaminar with fluoroscopy Procedure code (CPT) selection complete Assessment & Plan Assessment & Plan (1) Lumbar radiculopathy, right: Code(s): M54.16 - Radiculopathy, lumbar region Category: Medical Plan Patient is status post caudal JAKE with catheter. Patient tolerated procedure well and was discharged home in stable condition with discharge instructions. All questions were answered. We will follow-up via telephone or in clinic to assess response to therapy. A follow-up appointment was made during today's visit. Orders: Orders FL guidance in treatment room 07/12/24 M54.16 - Radiculopathy, lumbar region Coding Level of Care Code Procedure Only Diagnoses Lumbar radiculopathy, right M54.16 CPT Codes Coding - Joint 11: 64756 - Caudal/Lumbar Epidural/Interlaminar with fluoroscopy ([id number])
--- OUTSIDE RECORDS SUMMARY | 2024-07-12 13:48 | XMS_ITS | Clinical Summary ---
Author Organization [facility] Address [address] [place] [address] Care Team Providers Care Drawing Instructor Name Role Phone Farrukh Epps MD Primary Care Provider [phone] Allergies Active Allergy Reactions Criticality Noted Date [...] age to complete this topic Care Teams Drawing Instructor Relationship Specialty Start Date End Date Farrukh Epps MD PCP - General Internal Medicine 09/06/19
[2024-07-12 14:01] VITALS: BP 138/76; PULSE 83; O2SAT 92
== END 2024-07-12 14:03 | disposition home or self-care (01) ==
LOC: HO.PMCPRC 12:43
PROVIDERS: PCP Internal Medicine; Visit Provider Internal Medicine
DX: M54.16 Radiculopathy, lumbar region (principal)
CPT/HCPCS: 62323

== ENCOUNTER 2024-08-08 09:49 | Outpatient (AMB) | payer MEDICARE, SELFPAY ==
--- NOTE | 2024-08-08 09:53 | MHC.OFFVIS ---
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 Allergies metformin Adverse Reaction (Severe, Verified 08/08/24 09:56) GI upset liraglutide [From Victoza] Adverse Reaction (Intermediate, Verified 08/08/24 09:56) GI upset Medication List - Last Reconciled 08/08/24 by Cherelle Monge LPN atorvastatin 10 mg PO DAILY cholecalciferol (vitamin D3) 1,000 units PO DAILY gabapentin 300 mg PO QID hydrochlorothiazide 25 mg PO DAILY ibuprofen 800 mg PO Q8H PRN insulin glargine (Lantus Solostar U-100 Insulin) 78 - 82 units subcut DAILY insulin lispro (Humalog KwikPen (U-100) Insulin) 15 units subcut 5XD lisinopril 10 mg PO DAILY loratadine 10 mg PO DAILY oxycodone 10 mg PO QID PRN semaglutide (Ozempic) 1 mg subcut QWEEK sertraline 100 mg PO DAILY trazodone 200 mg PO BEDTIME HPI HPI s/p caudal: Details: History of Present Illness The patient is a 63-year-old female presenting with persistent foot and ankle pain. The main issue reported is the feeling of extreme sensitivity on the top of the right foot and the sensation of the toes feeling as if they are being squeezed. In the past, injections have been used for pain management successfully for the low back and leg but have not provided relief in the foot area. This discomfort is particularly noticeable during activities such as wearing shoes and driving. No noticeable swelling is present, although the foot feels subjectively swollen. The discomfort impedes her ability to wear regular footwear and affects her driving. 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 - Quality and Character: Sensitive skin on top of the foot, toes feel squeezed. - Primary Location: Right foot and ankle. - Areas of Radiation: Radiating discomfort in toes and ankle. - Exacerbating Factors: Wearing heavy or even light shoes. - Relieving Factors: Rest, as implied by the need for cruise control while driving. - Interference: Significantly affects the ability to wear footwear and driving ability. Physical Exam - Appears afebrile. - Alert and oriented. - Mood and affect appropriate. - Follows and participates in conversation appropriately. - Respiratory effort is unlabored. Results Pain Management - Affect: The ongoing pain in the foot impacts activities such as driving and wearing footwear. - Analgesia: Previous injections have been used but failed to offer relief for the foot pain. No current pain medications or levels discussed. - Adverse Effects: No specific side effects from pain treatments mentioned. - Activities of Daily Living: Pain limits footwear options and driving. - Aberrant Drug Related Behaviors: No evidence of medication misuse discussed. [facility] Medical History (Updated 12/10/22 @ 13:01 by REX Mack) Arthritis Back pain Insomnia Use of cane as ambulatory aid COVID Anxiety MAK on CPAP Diabetes HTN (hypertension) Lumbar post-laminectomy syndrome Surgical History (Updated 02/07/23 @ 13:39 by Briana Sabillon RN) Hx of carpal tunnel repair S/P placement of nerve stimulator Hx of tubal ligation Hx of colonoscopy History of total right knee replacement History of back surgery Family History Mother PONV (postoperative nausea and vomiting) Social History Patient Tobacco Use Status: Never used Tobacco Second Hand Smoke Exposure: No Current occupational status: disabled 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 - Follow up for assessment of pain relief from targeted therapy. Patient was informed and verbally consented to the use of an ambient scribe for clinic note documentation during this visit. Discussion Notes During the visit, I discussed with the patient the ongoing issues of sensory abnormalities and pain in the right foot and ankle. Although previous treatments like injections have not sufficed in providing relief, I recommended pursuing consultation with neurostimulation specialists. The patient seemed amenable to the idea of activating electrodes that may potentially offer coverage for the affected foot area. We talked about setting up an appointment during office hours for a more focused evaluation and a possible adjustment to the pain management plan. I encouraged active follow-up communications to understand the pain relief outcome following the neurostimulation intervention. Patient Instructions - Schedule a meeting with neurostimulation specialists. - Wear comfortable and supportive footwear when possible. - Use cruise control while driving to avoid worsening the foot discomfort. - Contact the office with any updates or changes in symptoms. Coding Level of Care Code Est Pt Level 3 (86746) Diagnoses Lumbar radiculopathy, right M54.16
[2024-08-08 09:54] VITALS: BP 117/69; PULSE 101; RESP 16; O2SAT 96; BMI 43.8
--- OUTSIDE RECORDS SUMMARY | 2024-08-08 10:21 | XMS_ITS | Clinical Summary ---
Author Organization [facility] Address [address] [place] [address] Phone Care Team Providers Care Stream Control Officer Name Role Phone Farrukh Epps MD Primary Care Provider [phone] Allergies Active Allergy Reactions Criticality Noted Date Comments Liraglutide 11/17/2017 Nausea, bloating, Metformin Nausea And Vomiting 06/30/2020 Medications hyaluronate sodium (SODIUM HYALURONATE IO) Inject 20 [...] SHORT PEN) 31G X 8 MM Misc 024 Active LORazepam (ATIVAN) 0.5 mg tablet Take 1 tablet (0.5 mg total) by mouth 2 (two) times a day if needed for anxiety. for up to 30 days 024 Active metroNIDAZOLE (METROGEL) 0.75 % gel Apply topically 2 (two) times a day. Sig: Apply to cleanse face 023 Active OMEGA-3 FATTY ACIDS ORAL Take 1 capsule by mouth 2 (two) times a day. 015 Active semaglutide (Ozempic) 1 mg/dose (4 mg/3 mL) injection pen Inject 1 mg under the skin every 7 (seven) days. 023 Active triamcinolone (NASACORT) 55 mcg nasal inhaler [...] HOURS NEEDED FOR PAIN 270 tablet 1 025 Active pen needle, diabetic (BD Ultra-Fine Short Pen Needle) 31 gauge x 5/16 needleIndicatio ns:Type 2 diabetes mellitus with diabetic microalbuminuri a, with long-term current use of insulin ([facility] V24, [facility] V28) Use to inject 1-4 times daily.E11.29 100 each 11 025 Active sertraline (ZOLOFT) 25 mg tablet Take 1 tablet (25 mg total) by mouth 1 (one) time each day. 90 tablet 1 025 Active FreeStyle Cy 2 Sensor kit 025 Active blood-glucose meter,continuou s (FreeStyle Cy 3 [place]) miscIndications :Type 2 diabetes mellitus with chronic kidney disease, with long-term current use of insulin, unspecified CKD stage ([facility] V24, [facility] V28) CGM, use with cy sensor 1 each 025 Active blood-glucose sensor (FreeStyle Cy 3 Sensor) deviceIndicatio ns:Type 2 diabetes mellitus with chronic kidney disease, with long-term current use of insulin, unspecified CKD stage ([facility] V24, [facility] V28) Box = Kit = EA, use [...] at bedtime. 90 tablet 1 025 Active letrozole (FEMARA) 2.5 mg tablet TAKE 1 TABLET BY MOUTH EVERY DAY 90 tablet 2 025 Active insulin lispro (HumaLOG KwikPen Insulin) 100 unit/mL injection pen INJECT 3 TIMES A DAY BEFORE MEALS PER SLIDING SCALE. IF BLOOD SUGAR <100 INJECT 0 UNITS, BS 101-150 INJECT 4 UNITS, BS 151-200 INJECT 6 UNITS, BS 201-250 INJECT 8 UNITS, BS 251-300 INJECT 10 UNITS, BS 301-350 INJECT 12 UNITS, BS 351-400 INJECT 14 UNITS, BS >400 INJECT 16 UNITS & CALL MD 45 mL 1 025 Active oxyCODONE (ROXICODONE) 10 mg immediate release tablet Take 1 tablet (10 mg total) by mouth every 4 (four) hours. Max Daily Amount: 60 mg 112 tablet 025 Active INSULIN LISPRO SUBQ Inject 15 Units under the skin 3 (three) times a day before meals. <100: 0 units, 101-150: 4 units 151-200: 6 units 201-250: 8 units 251-300: 10units 301-350: 12 units 351-400: 14 units >400: 16 units , call me max dose 48units/day 2024 Discontinued oxyCODONE (ROXICODONE) 10 mg immediate release tablet Take 1 tablet (10 mg total) by mouth every 4 (four) hours. Max Daily Amount: 60 mg 112 tablet 025 2024 Discontinued(R eorder) Hospital, Clinic, or Other Facility Administered Medication Ordered Dose Route Frequency Start Date End Date Status lidocaine (XYLOCAINE) 1 % injection 4 mLIndications:Primary osteoarthritis of left knee 4 mL inj Once PRN Procedure 07/12/2024 07/12/2024 Ended triamcinolone acetonide (KENALOG-40) 40 mg/mL injection 40 mgIndications:Primary osteoarthritis of left knee 40 mg IAtc Once PRN Procedure 07/12/2024 07/12/2024 Ended Active Problems Problem Noted Date Diagnosed Date MAK on CPAP 12/02/2023 Morbid obesity with BMI of 4 5.0-49.9, adult ([facility] V24, [facility] V28) 12/02/2023 Invasive ductal carcinoma of breast ([facility] V24, [facility] V28) 08/23/2023 Overview (12/02/2023): 05/2023- partial left [...] it myself. Stage 3a chronic kidney disease ([facility] V24, S/[facility] V28) 06/26/2021 Postlaminectomy syndrome of lumbosacral region 0 07/02/2020 COVID-19 virus infection 03/02/2020 Conjunctivitis, allergic, bilateral 11/26/2019 Morbid obesity ([facility] V24, [facility] V28) 2018 Upper airway cough syndrome 07/22/2017 Subclinical hypothyroidism 06/14/2017 Overview (12/02/2023): TSH 4.06, 06/13/2017 Essential hypertension 06/14/2017 Multiple pulmonary nodules 05/01/2017 Cataract 04/16/2016 Type 2 diabetes mellitus wit h eye manifestations ([facility] V24, [facility] V28) 03/31/2016 Diabetic retinopathy ([facility] V24, [facility] V28) 03/31/2016 Lumbar radicular pain 02/03/2015 Overview (12/02/2023): Has seen pain management who recommended right L4 transforaminal epidural injection. Status post total right knee replacement 015 Primary osteoarthritis of left knee 02/03/2015 Microalbuminuria 11/04/2014 Obstructive sleep apnea syndrome 05/11/2011 PIERRE (nonalcoholic steatohepatitis) 04/03/2010 Hyperlipidemia 03/11/2009 DM (diabetes mellitus), type 2 with renal complications ([facility] V24, [facility] V28) 09/21/2005 Overview (12/02/2023): 11/2015 - monitor at present Depressive disorder 09/09/2005 Perennial allergic rhinitis 09/09/2005 Encounters Date Type Department Care Team Description 07/24/2024 Telephone Pulmonolgy - [place] 175 [facility] [address] [place] [address] Yamila Veloz MD Sleep Study 07/12/2024 10:45 AM EDT Office Visit Orthopedic Surgery [facility] 160 175 [facility] [address] [place] [address] Zabrina Carlson MD Primary osteoarthritis of left knee (Primary Dx) 06/27/2024 10:30 AM EDT Office Visit [facility] [address] [place] [phone] Kaushik Lima MD Malignant neoplasm of unspecified site of unspecified female breast ([facility] V24, [facility] V28) 06/14/2024 Telephone Adult Medicine [address] [phone] Farrukh Epps MD Referral (Oncology Insurance Referral) 05/24/2024 Telephone Endocrinology [address] [phone] Jessica Damon SC ozempic endo 05/16/2024 11:00 AM EDT Office Visit General Surgery [facility] 175 [facility] [address] [place] [phone] Terry Bernabe MD History of left breast cancer (Primary Dx); History of partial mastectomy of left breast 05/14/2024 10:38 AM EDT - 05/14/2024 11:59 PM EDT Hospital Encounter Radiology Department - [address] [phone] Breast tenderness; History of left breast cancer Discharge Disposition: Home or Self Care 05/10/2024 9:45 AM EST Office Visit Pulmonolgy - [place] 175 [facility] [address] [place] [phone] Yamila Veloz MD Pneumonia of left upper lobe due to infectious organism (Primary Dx); Lung nodules; Chronic bronchitis, unspecified chronic bronchitis type ([facility] V24, [facility] V28); MAK on CPAP 05/09/2024 11:30 AM EST Office Visit Adult [address] [phone] Silver Anders PA Encounter for long-term (current) use of medications (Primary Dx); Lumbar radicular pain; Essential hypertension; Hyperlipidemia, unspecified hyperlipidemia type; Stage 3a chronic kidney disease (CMS/HCC V24, [facility] V28); Type 2 diabetes mellitus with stage 3 chronic kidney disease, with long-term current use of insulin, unspecified whether stage 3a or 3b CKD ([facility] V24, [facility] V28); Depressive disorder; Anxiety; Insomnia, unspecified type; Breast tenderness; History of left breast cancer from Last 3 Months Immunizations Name Administration [...] Pfizer Covid-19 Bivalent, Or iginal + Ba.1 (Non-[place] [employer] Bivalent) 01/19/2022 Pneumococcal polysaccharide 23 valent (Pneumovax [...] 2 diabetes mellitus wit h eye manifestations ([facility] V24, [facility] V28) 03/31/2016 DX:Type 2 diabetes mellitus with eye manifestations (HCC) Diabetic retinopathy ([facility]/ C V24, [facility] V28) 03/31/2016 DX:Diabetic retinopathy (HCC ) Type 2 diabetes mellitus wit h cataract ([facility] V24, [facility] V28) 03/31/2016 DX:Type 2 diabetes mellitus with cataract (HCC); COMMENT: 11/2015 - monitor at present DM (diabetes mellitus), type 2 with renal complications ([facility] V24, [facility] V28) 09/21/2005 DX:DM (diabetes mellitus), t ype 2 with renal complications (HCC); COMMENT: (added in medical risk adjustment review - 06/02/2010) Morbid obesity ([facility] V24, [facility] V28) 10/11/2015 DX:Morbid obesity (HCC) Cataract 04/16/2016 DX:Cataract Morbid obesity with BMI of 4 5.0-49.9, adult ([facility] V24, [facility] V28) 10/11/2015 DX:Morbid obesity wit h BMI of 45.0-49.9, adult ([facility]) COVID-19 virus infection 03/02/2020 DX:COVI D-19 virus infection Invasive ductal carcinoma of breast ([facility] V24, [facility] V28) 08/23/2023 DX:Invasive ductal carcinom a of breast (HCC) Diabetes mellitus ([facility] V 24, [facility] V28) DX:Diabetes mellitus (HCC) Sleep apnea DX:Sleep [...] for your loved ones. For example, child care worker or elderly care for an older adult? [...] - - Weight 117 kg (259 lb) 07/12/2024 10:54 AM EDT Height 162.6 cm (5' 4.02 ) 07/12/2024 10:54 AM E DT Body Mass Index 44.44 07/12/2024 10:54 AM EDT Plan of Treatment Upcoming Encounters Date Type Department Care Team (Late st Contact Info) Description 08/10/2024 3:00 PM EDT Office Visit Adult Medicine [address] [phone] Farrukh Epps MD [address] [place] [address] 09/26/2024 10:30 AM EDT Office Visit [facility] [address] [place] [phone] Kaushik Lima MD [address] [place] [phone] 11/12/2024 9:45 AM EDT Office Visit Pulmonolgy - [place] [address] [phone] Yamila Veloz MD [address] [address] 11/12/2024 10:30 AM EDT Office Visit General Surgery [facility] [address] [phone] Terry Bernabe MD [address] [address] 11/15/2024 9:45 AM EDT Office Visit Adult Medicine [address] [phone] Farrukh Epps MD [address] [place] [phone] 02/18/2025 11:20 AM EST Appointment Radiology Department [address] [phone] Health Maintenance Due Date Last Done Comments [...] Procedure Name Priority Date/Time Associated Diagnosis Comments POLYSOMNOGRAPHY Routine 07/24/2024 4:46 PM EDT MAK on CPAP [place] ARTHROCENTESIS/ASPIRA TION/INJECTION MAJOR JOINT/BURSA W/O U/S GUIDANCE Routine 07/12/2024 10:45 AM EDT Primary osteoarthritis of left knee US BREAST LIMITED LEFT Routine 05/14/2024 10:48 AM EDT Breast tenderness History of left breast cancer MICROALBUMIN CREATININE URINE RATIO Routine 04/13/2024 10:50 AM EST Type 2 diabetes mellitus with other diabetic kidney complication, with long-term current use of insulin ([facility] V24, [facility] V28) COMPREHENSIVE METABOLIC PANEL Routine 04/13/2024 10:50 AM EST Type 2 diabetes mellitus with other diabetic kidney complication, with long-term current use of insulin ([facility] V24, [facility] V28) Encounter for long-term (current) use of medications Essential hypertension HEMOGLOBIN A1C Routine 04/13/2024 10:50 AM EST Type 2 diabetes mellitus with other diabetic kidney complication, with long-term current use of insulin ([facility] V24, [facility] V28) LIPID PANEL WITH REFLEX TO DIRECT [...] Recently Relevant to Health Maintenance Results * Polysomnography (07/24/2024 4:46 PM EDT) Yamila Veloz MD SLEEP CENTER ORDERABLES Final Re sult * VT ARTHROCENTESIS/ASPIRATION/INJECTION MAJOR JOINT/BURSA W/O U/S GUIDANCE (07/12/2024 10:45 AM EDT) Narrative Zabrina Carlson MD - 07/12/2024 10:45 AM EDT Zabrina Carlson MD ? 07/12/2024 ??1:19 PM L Inj/Asp: L knee Indications: pain Details: 22 G needle, anterolateral approach Medications: 4 mL lidocaine 1 %; 40 mg triamcinolone acetonide 40 mg/mL Outcome: tolerated well, no immediate complications Informed Consent: ??Laterality: ??Left ??Relevant images/test results available and reviewed: yes ?Health status cleared: ??Yes ??Procedure/treatment, purpose, treatment alternatives, risks/potential complications and benefits explained: yes ?Patient questions answered: yes ?Patient agrees, verbalizes understanding, and wants to proceed: yes ?Consent given by: ??Patient ??Informed consent discussion completed by Physician/ADILSON with patient: ?? Verbal ??Pre-procedure timeout performed: yes ?? us Zabrina Carlson MD IN CLINIC/BEDSIDE ORDERABLES F inal Result * US Breast Limited Left (05/14/2024 10:48 [...] is some skin pigmentation and [place] appearance of the skin in the area [...] Signed Date: 05/14/2024 11:40 ET Workstation ID: [id number] Transcribed By: Self Edit Transcribed Date: 05/14/2024 [...] There is some skin pigmentation and [place] appearance of the skin in the area [...] Signed Date: 05/14/2024 11:40 ET Workstation ID: [id number] Transcribed By: Self Edit Transcribed Date: 05/14/2024 11:02 ET us Silver BOYD IMG US PROCEDURES Final Result * Lipid panel with reflex to direct LDL (04/13/2024 10:50 AM EST) Cholesterol 172 0 - 200 mg/dL LAB CHEMISTRY METHOD 04/13/2024 3:16 PM [facility] Triglycerides 122 0 - 150 mg/dL LAB CHEMISTRY METHOD 04/13/2024 3:16 PM [facility] HDL 71 >=40 mg/dL LAB CHEMISTRY METHOD 04/13/2024 3:16 PM [facility] LDL Calculated 77 0 - 100 mg/dL LAB CHEMISTRY METHOD 04/13/2024 3:16 PM [facility] VLDL Cholesterol Denilson 24.4 mg/dL LAB CHEMISTRY METHOD 04/13/2024 3:16 PM [facility] Non HDL Chol. (LDL+VLDL) 101 <145 mg/dL LAB CHEMISTRY METHOD 04/13/2024 3:16 PM [facility] Chol/HDL Ratio 2.4 0.0 - 4.4 LAB CHEMISTRY METHOD 04/13/2024 3:16 PM [facility] Blood Venous blood specimen / Unknown Venipuncture / Unknown 04/13/2024 10:50 AM EST 04/13/2024 10:50 AM EST us Farrukh Epps MD LAB BLOOD ORDERABLES Final Resu lt Performing Organization Address [facility]/ZIP Co de Phone Number [facility] [address] [place] [address], [place] [phone] * (ABNORMAL) Microalbumin creatinine urine ratio (04/13/2024 10:50 AM EST) Creatinine, Urine 210.0 mg/dL LAB CHEMISTRY METHOD 04/13/2024 12:49 PM EST [facility] Microalb, Ur 43.3(H) 0.0 - 29.0 mg/L LAB CHEMISTRY METHOD 04/13/2024 12:49 PM EST [facility] Microalb/Crea t Ratio 21 <30 mg/g creat LAB CHEMISTRY METHOD 04/13/2024 12:49 PM EST [facility] Urine Urine specimen obtained by clean catch procedure / Unknown Non-blood Collection / Unknown 04/13/2024 10:50 AM EST 04/13/2024 10:50 AM EST us Farrukh Epps MD LAB URINE ORDERABLES Final Resu lt Performing Organization Address [facility]/ZIP Co de Phone Number [facility] [address] [place] [address], [place] [phone] * (ABNORMAL) Hemoglobin A1c (04/13/2024 10:50 AM EST) Hemoglobin A1C 6.5(H) <6.5 % LAB CHEMISTRY METHOD 04/13/2024 2:25 PM EST [facility] Mean Bld Glu Estim. 140 mg/dL LAB CHEMISTRY METHOD 04/13/2024 2:25 PM EST [facility] Blood Venous blood specimen / Unknown Venipuncture / Unknown 04/13/2024 10:50 AM EST 04/13/2024 10:50 AM EST us Farrukh Epps MD LAB BLOOD ORDERABLES Final Resu lt [facility] [address] [place] [address], [place] [phone] * (ABNORMAL) Comprehensive metabolic panel (04/13/2024 10:50 AM EST) Pathologist [facility] Sodium 139 133 - 145 mmol/L LAB CHEMISTRY METHOD 04/13/2024 3:16 PM [facility] Potassium 3.8 3.5 - 5.5 mmol/L LAB CHEMISTRY METHOD 04/13/2024 3:16 PM [facility] Chloride 102 96 - 110 mmol/L LAB CHEMISTRY METHOD 04/13/2024 3:16 PM [facility] CO2 33(H) 21 - 32 mmol/L LAB CHEMISTRY METHOD 04/13/2024 3:16 PM [facility] Anion Gap 4 3 - 11 LAB CHEMISTRY METHOD 04/13/2024 3:16 PM [facility] Glucose 136(H) 70 - 100 mg/dL LAB CHEMISTRY METHOD 04/13/2024 3:16 PM [facility] BUN 17 5 - 25 mg/dL LAB CHEMISTRY METHOD 04/13/2024 3:16 PM [facility] Creatinine 0.91 0.50 - 1.10 mg/dL LAB CHEMISTRY METHOD 04/13/2024 3:16 PM [facility] eGFR 71 >=60 mL/min/1. 73m2 LAB CHEMISTRY METHOD 04/13/2024 3:16 PM [facility] Comment:Calculation based on the??Chronic Kidney Disease Epidemiology Collaboration (CKD-EPI) equation refit??without adjustment for race. BUN/Creatinine Ratio 18.7 LAB CHEMISTRY METHOD 04/13/2024 3:16 PM EST [facility] Calcium 9.5 8.5 - 10.5 mg/dL LAB CHEMISTRY METHOD 04/13/2024 3:16 PM [facility] AST (SGOT) 24 10 - 42 unit/L LAB CHEMISTRY METHOD 04/13/2024 3:16 PM [facility] ALT (SGPT) 29 10 - 60 unit/L LAB CHEMISTRY METHOD 04/13/2024 3:16 PM [facility] Alkaline Phosphatase 108 42 - 121 unit/L LAB CHEMISTRY METHOD 04/13/2024 3:16 PM [facility] Total Protein 6.8 6.0 - 8.0 g/dL LAB CHEMISTRY METHOD 04/13/2024 3:16 PM [facility] Albumin 3.8 3.2 - 5.0 g/dL LAB CHEMISTRY METHOD 04/13/2024 3:16 PM [facility] Total Bilirubin 0.9 0.0 - 1.4 mg/dL LAB CHEMISTRY METHOD 04/13/2024 3:16 PM [facility] Blood Venous blood specimen / Unknown Venipuncture / Unknown 04/13/2024 10:50 AM EST 04/13/2024 10:50 AM EST us Farrukh Epps MD LAB BLOOD ORDERABLES Final Resu lt [facility] [address] [place] [address], [place] [phone] * MG Mammo Digital Diagnostic w Elio bilat (02/16/2024 10:05 AM EST) Anatomical Region Laterality Modality Breast Bilateral Mammography 02/16/2024 10:0 5 AM EST Impressions 02/16/2024 10:25 AM EST BILATERAL BREASTS: Benign, no evidence of malignancy. Normal interval follow-up is recommended in 12 months. Findings and recommendations were conveyed to the patient via chief technologist. ?? BREAST DENSITY: B - There are scattered areas of fibroglandular density. ?? BI-RADS CATEGORY: 2 - BENIGN RECOMMENDATION: Mammography: Diagnostic bilateral mammogram recommended in 1 year. Mammo Location: [facility], [address] [place] [address], [id number], . -------- FINAL REPORT -------- Dictated By: Wes Moran Dictated Date: 02/16/2024 10:05 ET Assigned Physician: Wes Moran Reviewed and Electronically Signed By: Wes Moran Signed Date: 02/16/2024 10:25 ET Workstation ID: [id number] Transcribed By: Self Edit Transcribed Date: 02/16/2024 [...] mammogram recommended in 1 year. Mammo Location: [facility], [address] [place] [address], [id number], . -------- FINAL REPORT -------- Dictated By: Wes Moran Dictated Date: 02/16/2024 10:05 ET Assigned Physician: Wes Moran Reviewed and Electronically Signed By: Wes Moran Signed Date: 02/16/2024 10:25 ET Workstation ID: [id number] Transcribed By: Self Edit Transcribed Date: 02/16/2024 10:20 ET Farrukh Epps MD IMG BI PROCEDURES Final Result * Diabetes Foot Exam (10/10/2023) [facility] Diabetes: Annual Foot Exam abstracted [facility] Provider HEALTH MAINTENANCE Final Result * Diabetes Eye Exam (09/21/2023) [facility] Diabetes: Annual Retina Eye Exam abstracted [facility] Provider HEALTH MAINTENANCE Final Result * Pap Smear (08/20/2022) [facility] Pap smear no interpretation , abstracted [facility] Provider HEALTH MAINTENANCE Final Result * Colonoscopy (04/01/2014) [facility] Colonoscopy no interpretation , abstracted Anatomical Region Laterality Modality Other us Historical Provider HEALTH MAINTENANCE Final Result * Hepatitis C Screening (10/20/2012) Hepatitis C Screening abstracted us Historical Provider HEALTH MAINTENANCE Final Result from Last 3 Months or Most Recently Relevant to Health Maintenance Insurance [employer] Care Teams Stream Control Officer Relationship Specialty Start Date End Date Farrukh Epps MD [address] [place] [id number] PCP - General Internal Medicine 09/05/19
== END 2024-08-08 10:08 | disposition home or self-care (01) ==
LOC: HO.PMC 09:50
PROVIDERS: PCP Internal Medicine; Visit Provider Internal Medicine
DX: M54.16 Radiculopathy, lumbar region (principal)
CPT/HCPCS: 99213

== ENCOUNTER → 2024-08-08 09:49 | Outpatient (BNVA) | payer MEDICARE, SELFPAY | PROVIDERS: PCP Internal Medicine; Visit Provider Internal Medicine | DX: M54.16 Radiculopathy, lumbar region (principal) | CPT/HCPCS: 99212 ==

== ENCOUNTER → 2024-08-13 12:49 | Outpatient (BNVA) | payer MEDICARE, SELFPAY | PROVIDERS: PCP Internal Medicine; Visit Provider Internal Medicine ==

== ENCOUNTER 2024-10-04 09:28 | Outpatient (REF) | payer MEDICARE, SELFPAY ==
--- NOTE | ~2024-10-04 | FL_ITS ---
EXAMINATION: XR FLUOROSCOPY WITH IMAGES CLINICAL INFORMATION: Postlaminectomy syndrome. COMPARISON: None available. TECHNIQUE: Fluoroscopy provided to: Dr. Diamond Fluoroscopy time: 0.0 minutes DAP: [id number] [id number] Images: 1 FINDINGS: Solitary spot image of the lateral sacrum. Please refer to the full procedural report for details. FL/FL guidance in treatment room IMPRESSION: Fluoroscopic guidance. Electronically signed by: Yousif Mendieta MD 10/04/2024 04:03 PM EDT
--- OUTSIDE RECORDS SUMMARY | 2024-10-04 09:48 | XMS_ITS | Clinical Summary ---
Author Organization [facility] Address [address] [place] [address] Phone Care Team Providers Care Practice Lead Name Role Phone Farrukh Epps MD Primary Care Provider [phone] Allergies Active Allergy Reactions Criticality Noted Date [...] 3 (three) times a day. 021 Active UNABLE TO FIND 1 EA by [...] 2 (two) times a day. 015 Active triamcinolone (NASACORT) 55 mcg nasal inhaler Administer 2 sprays into affected nostril(s) 1 (one) time each day. Active hydroCHLOROthia zide (HYDRODIURIL) 25 mg tabletIndicatio ns:Essential (primary) hypertension TAKE 1 TABLET BY MOUTH EVERY DAY 90 tablet 024 Active ibuprofen (ADVIL,MOTRIN) 800 mg tablet TAKE 1 TABLET BY MOUTH EVERY 8 HOURS NEEDED FOR PAIN 270 tablet 1 025 Active pen needle, diabetic (BD Ultra-Fine Short Pen Needle) 31 gauge x 5/16 needleIndicatio ns:Type 2 diabetes mellitus with diabetic microalbuminuri a, with long-term current use of insulin ([facility] V24, [facility] V28) Use to inject 1-4 times daily.E11.29 100 each 11 025 Active sertraline (ZOLOFT) 25 mg tablet Take 1 tablet (25 mg total) by mouth 1 (one) time each day. 90 tablet 1 025 Active FreeStyle Cy 2 Sensor kit 025 Active blood-glucose sensor (FreeStyle Cy 3 Sensor) deviceIndicatio ns:Type 2 diabetes mellitus with chronic kidney disease, with long-term current use of insulin, unspecified CKD stage ([facility] V24, [facility] V28) Box = Kit = EA, use [...] CALL MD 45 mL 1 025 Active blood-glucose sensor (FreeStyle Cy 3 Sensor) deviceIndicatio ns:Type 2 diabetes mellitus with chronic kidney disease, with long-term current use of insulin, unspecified CKD stage ([facility] V24, [facility] V28) Change sensor every 14 days, used to check blood sugar. 6 each 1 025 Active traZODone (DESYREL) 100 mg tablet Take 2 tablets (200 mg total) by mouth at bedtime. at bedtime 180 tablet 1 025 Active insulin glargine (Lantus Solostar U-100 Insulin) 100 unit/mL (3 mL) injection penIndications: Type 2 diabetes mellitus with chronic kidney disease, with long-term current use of insulin, unspecified CKD stage ([facility] V24, [facility] V28) Inject 30 Units under the skin 1 (one) time each day. 30 mL 5 025 Active Vitamin D3 25 mcg (1,000 unit) tablet TAKE 1 TABLET BY MOUTH EVERY DAY 90 tablet 2 025 Active sertraline (ZOLOFT) 100 mg tablet TAKE 1 TABLET BY MOUTH EVERY DAY 90 tablet 1 025 Active oxyCODONE (ROXICODONE) 10 mg immediate release tablet Take 1 tablet (10 mg total) by mouth every 4 (four) hours. Max Daily Amount: 60 mg 112 tablet 025 Active semaglutide (Ozempic) 1 mg/dose (4 mg/3 mL) injection pen Inject 1 mg under the skin every 7 (seven) days. 3 mL 5 025 Active insulin glargine (Lantus Solostar U-100 Insulin) 100 unit/mL (3 mL) injection pen Inject 78-82 Units under the skin 1 (one) time each day. 023 2024 Discontinued(R eorder) semaglutide (Ozempic) 1 mg/dose (4 mg/3 mL) injection pen Inject 1 mg under the skin every 7 (seven) days. 023 2024 Discontinued(R eorder) cholecalciferol (VITAMIN D-3) 25 mcg (1,000 unit) tablet Take 1 tablet (1,000 Units total) by mouth 1 (one) time each day. 2024 Discontinued sertraline (ZOLOFT) 100 mg tablet TAKE 1 TABLET BY MOUTH EVERY DAY 90 tablet 1 025 2024 Discontinued oxyCODONE (ROXICODONE) 10 mg immediate release tablet Take 1 tablet (10 mg total) by mouth every 4 (four) hours. Max Daily Amount: 60 mg 112 tablet 025 2024 Discontinued(R eorder) oxyCODONE (ROXICODONE) 10 mg immediate release tablet Take 1 tablet (10 mg total) by mouth every 4 (four) hours. Max Daily Amount: 60 mg 84 tablet 025 2024 Discontinued(D uplicate order) oxyCODONE (ROXICODONE) 10 mg immediate release tablet Take 1 tablet (10 mg total) by mouth every 4 (four) hours. Max Daily Amount: 60 mg 112 tablet 025 2024 Discontinued(D uplicate order) oxyCODONE (ROXICODONE) 10 mg immediate release tablet Take 1 tablet (10 mg total) by mouth every 4 (four) hours. Max Daily Amount: 60 mg 112 tablet 025 2024 Discontinued(R eorder) Active Problems Problem Noted Date Diagnosed Date MAK on CPAP 12/02/2023 Morbid obesity with BMI of 4 5.0-49.9, adult ([facility] V24, [facility] V28) 12/02/2023 Invasive ductal carcinoma of breast ([facility] V24, [facility] V28) 08/23/2023 Overview (12/02/2023): 05/2023- partial left breast mastectomy with Dr. Krystyna Bernabe. Estrogen and Progesterone receptor Positive HER2 Negative Cervical spondylosis with radiculopathy 11/06/19 23 Overview (12/02/2023): Last Assessment & Plan: Ms. [...] it myself. Stage 3a chronic kidney disease ([facility] V24, [facility] V28) 06/26/2021 Postlaminectomy syndrome of lumbosacral region 0 07/02/2020 COVID-19 virus infection 03/02/2020 Conjunctivitis, allergic, bilateral 11/26/2019 Morbid obesity ([facility] V24, [facility] V28) 2018 Upper airway cough syndrome 07/22/2017 Subclinical hypothyroidism 06/14/2017 Overview (12/02/2023): TSH 4.06, 06/13/2017 Essential hypertension 06/14/2017 Multiple pulmonary nodules 05/01/2017 Cataract 04/16/2016 Type 2 diabetes mellitus wit h eye manifestations ([facility] V24, [facility] V28) 03/31/2016 Diabetic retinopathy ([facility] V24, [facility] V28) 03/31/2016 Lumbar radicular pain 02/03/2015 Overview (12/02/2023): Has seen pain management who recommended right L4 transforaminal epidural injection. Status post total right knee replacement 015 Primary osteoarthritis of left knee 02/03/2015 Microalbuminuria 11/04/2014 Obstructive sleep apnea syndrome 05/11/2011 PIERRE (nonalcoholic steatohepatitis) 04/03/2010 Hyperlipidemia 03/11/2009 DM (diabetes mellitus), type 2 with renal complications ([facility] V24, [facility] V28) 09/21/2005 Overview (12/02/2023): 11/2015 - monitor at present Depressive disorder 09/09/2005 Perennial allergic rhinitis 09/09/2005 Encounters Date Type Department Care Team Description 09/26/2024 10:30 AM EDT Office Visit [facility] Hematology Oncology [address] [place] [phone] Kaushik Lima MD Infiltrating ductal carcinoma of breast, unspecified laterality ([facility] V24, [facility] V28) (Primary Dx) 09/25/[address] [phone] Camilla Meyers PA Medication Problem 09/19/2024 Telephone Pulmonolgy [facility] [address] [place] [phone] Marie Vazquez MA Fitting for DME 09/18/2024 Telephone Adult Medicine [address] [phone] Farrukh Epps MD Medication Problem 09/11/2024 10:30 AM EDT Office Visit [address] [phone] Corin Fofana MD Type 2 diabetes mellitus with chronic kidney disease, with long-term current use of insulin, unspecified CKD stage ([facility] V24, [facility] V28) (Primary Dx) 08/13/2024 2:56 PM EDT - 08/13/2024 11:59 PM EDT Hospital Encounter [address] [phone] Left shoulder pain, unspecified chronicity Discharge Disposition: Home or Self Care 08/10/2024 3:00 PM EDT Office Visit Adult Medicine [address] [place] [phone] Farrukh Epps MD Type 2 diabetes mellitus with stage 3 chronic kidney disease, with long-term current use of insulin, unspecified whether stage 3a or 3b CKD ([facility] V24, [facility] V28) (Primary Dx); Pure hypercholesterolemia; Microalbuminuria; Essential hypertension; Encounter for long-term (current) use of medications; Left shoulder pain, unspecified chronicity; Primary osteoarthritis of left knee; Infiltrating ductal carcinoma of breast, unspecified laterality ([facility] V24, [facility] V28); Lumbar radicular pain 08/10/2024 Telephone Adult Medicine [facility] [address] [place] [phone] Farrukh Epps MD Referral (Pain Medicine Insurance Referral) 07/24/2024 Telephone Pulmonolgy [facility] [address] [facility] [address] [place] [phone] Yamila Veloz MD Sleep Study 07/12/2024 10:45 AM EDT Office Visit Orthopedic Surgery [facility] [address] [facility] [address] [place] [phone] Zabrina Carlson MD Primary osteoarthritis of left knee (Primary Dx) from Last 3 Months Immunizations Name Administration [...] Bivalent, Or iginal + Ba.1 (Non-US Trademark COMIRNATAruna Bivalent) 01/19/2022 Pneumococcal polysaccharide 23 valent (Pneumovax [...] 2 diabetes mellitus wit h eye manifestations ([facility] V24, [facility] V28) 03/31/2016 DX:Type 2 diabetes mellitus with eye manifestations (HCC) Diabetic retinopathy ([facility] V24, [facility] V28) 03/31/2016 DX:Diabetic retinopathy (HCC ) Type 2 diabetes mellitus wit h cataract ([facility] V24, [facility] V28) 03/31/2016 DX:Type 2 diabetes mellitus with cataract (HCC); COMMENT: 11/2015 - monitor at present DM (diabetes mellitus), type 2 with renal complications ([facility] V24, [facility] V28) 09/21/2005 DX:DM (diabetes mellitus), t ype 2 with renal complications (HCC); COMMENT: (added in medical risk adjustment review - 06/02/2010) Morbid obesity ([facility] V24, [facility] V28) 10/11/2015 DX:Morbid obesity (HCC) Cataract 04/16/2016 DX:Cataract Morbid obesity with BMI of 4 5.0-49.9, adult ([facility] V24, [facility] V28) 10/11/2015 DX:Morbid obesity wit h BMI of 45.0-49.9, adult (HCC) COVID-19 virus infection 03/02/2020 DX:COVI D-19 virus infection Invasive ductal carcinoma of breast ([facility] V24, [facility] V28) 08/23/2023 DX:Invasive ductal carcinom a of breast (HCC) Diabetes mellitus ([facility] V 24, [facility] V28) DX:Diabetes mellitus (HCC) Sleep apnea DX:Sleep [...] for your loved ones. For example, child psychometrist or elderly care for an older adult? [...] Sign Reading Time Taken Comments Blood Pressure 112/52 09/26/2024 10:30 AM EDT Pulse 87 09/26/2024 10:30 AM EDT Temperature 36.7 C (98 F) 09/26/2024 10:30 AM EDT Respiratory Rate 14 08/10/2024 2:49 PM EDT Oxygen Saturation 95% 09/26/2024 10:30 AM EDT Inhaled Oxygen Concentration - - Weight 119 kg (262 lb) 09/26/2024 10:30 AM EDT Height 162.6 cm (5' 4 ) 09/11/2024 10:24 AM EDT Body Mass Index 44.97 09/11/2024 10:24 AM EDT Plan of Treatment Upcoming Encounters Date Type Department Care Team (Late st Contact Info) Description 11/12/2024 9:45 AM EDT Office Visit Pulmonolgy - [address] [phone] Yamila Veloz MD [address] [place] [address] 11/12/2024 10:30 AM EDT Office Visit General Surgery - [address] [phone] Terry Bernabe MD [address] [place] [phone] 11/15/2024 9:45 AM EDT Office Visit Adult Medicine [address] [phone] Farrukh Epps MD [address] [place] [phone] 01/14/2025 1:00 PM EST Office Visit Endocrinology - [address] [phone] Corin Fofana MD [address] [place] [address] 02/18/2025 11:20 AM EST Appointment Radiology Department - [address] [phone] 03/12/2025 10:20 AM EST Office Visit Endocrinology - [address] [phone] Camilla Meyers PA [address] [place] [address] 03/29/2025 10:30 AM EST Office Visit [facility] Hematology Oncology [address] [place] [phone] Kaushik Lima MD [address] [place] [phone] Health Maintenance Due Date Last Done Comments Zoster Vaccines (1 of 2) 10/31/1979 Pneumococcal Vaccine: 50+ Years (2 of 2 - PCV) 12/21/2007 12/20/2006 RSV Immunization Adult Patients (1 - Risk 60-74 years 1-dose series) 2020 HIV Screening 02/13/2022 Medicare Annual Wellness Visit 02/13/2022 COVID-19 Vaccine ( season) 2023 02/16/2023, 03/17/2021, 05/30/2020, Additional history exists Depression Screening 03/07/2024 01/29/2024 Colorectal Cancer Screening: Colonoscopy 04/01/2024 04/01/2014 Diabetes: Annual Retina Eye Exam 09/20/2024 09/21/2023 Diabetes: Annual Foot Exam 10/09/2024 10/10/2023 Influenza Vaccine (#1) 2024 , 01/23/2023, 01/13/2022, Additional history exists Social Influencers of Health Screening 01/28/2025 01/29/2024 Diabetes: Blood Sugar Control Test (HGBA1C) 02/12/2025 08/13/2024, 04/13/2024, 02/26/2024, Additional history exists Diabetes: Annual Urine Albumin-Creatinine Ratio (uACR) 08/13/2025 08/13/2024, 04/13/2024, 10/10/2023 Diabetes: Annual GFR (Glomerular Filtration Rate) 08/13/2025 08/13/2024, 04/13/2024, 02/26/2024, Additional history exists Hypertension/CHF/CAD Annual BMP Blood Test 08/13/2025 08/13/2024, 04/13/2024, 02/26/2024, Additional history exists Cervical Cancer Screening: Pap Smear 08/20/2025 08/20/2022, 08/31/2017, 08/31/2017 Breast Cancer Screening 02/15/2026 02/16/20, 04/04/2023, 04/04/2023, Additional history exists DTaP,Tdap,and Td Vaccines (4 - Td or Tdap) 05/03/2029 05/03/2019, 05/03/2019, 01/10/2008 Cholesterol Screening (Lipid Panel) 08/13/2029 08/13/2024, 04/13/2024, 03/24/2023 Hepatitis C Screening Completed 10/20/2012 HIB Vaccines Aged Out No longer eligi [...] Priority Date/Time Associated Diagnosis Comments POLYSOMNOGRAPHY Routine 08/26/2024 11:17 AM EDT MAK (obstructive sleep apnea) HEMOGLOBIN A1C Routine 08/13/2024 3:16 PM EDT Type 2 diabetes mellitus with stage 3 chronic kidney disease, with long-term current use of insulin, unspecified whether stage 3a or 3b CKD ([facility] V24, [facility] V28) LIPID PANEL WITH REFLEX TO DIRECT LDL Routine 08/13/2024 3:16 PM EDT Pure hypercholesterolemia COMPREHENSIVE METABOLIC PANEL Routine 08/13/2024 3:16 PM EDT Type 2 diabetes mellitus with stage 3 chronic kidney disease, with long-term current use of insulin, unspecified whether stage 3a or 3b CKD ([facility] V24, [facility] V28) Essential hypertension Encounter for long-term (current) use of medications MICROALBUMIN CREATININE URINE RATIO Routine 08/13/2024 3:16 PM EDT Type 2 diabetes mellitus with stage 3 chronic kidney disease, with long-term current use of insulin, unspecified whether stage 3a or 3b CKD ([facility] V24, [facility] V28) Microalbuminuria XR SHOULDER 2+ VIEWS LEFT Routine 08/13/2024 3:04 PM EDT Left shoulder pain, unspecified chronicity POLYSOMNOGRAPHY Routine 07/24/2024 4:46 PM EDT MAK on CPAP WA ARTHROCENTESIS/ASPIRA TION/INJECTION MAJOR JOINT/BURSA W/O U/S GUIDANCE Routine 07/12/2024 10:45 AM EDT Primary osteoarthritis of left knee MG MAMMO DIGITAL DIAGNOSTIC W ELIO BILAT Routine 02/16/2024 10:05 AM EST Abnormal mammogram DIABETES FOOT EXAM Routine 10/10/2023 DIABETES EYE EXAM Routine 09/21/2023 PAP SMEAR Routine 08/20/2022 COLONOSCOPY Routine 04/01/2014 HEPATITIS C SCREENING Routine 10/20/2012 from Last 3 Months or Most Recently Relevant to Health Maintenance Results * Polysomnography (08/26/2024 11:17 AM EDT) us Yamila Veloz MD [facility]EP CENTER ORDERABLES Final Re sult * Lipid panel with reflex to direct LDL (08/13/2024 3:16 PM EDT) Cholesterol 150 0 - 200 mg/dL LAB CHEMISTRY METHOD 08/13/2024 7:55 PM EDT [facility] Triglycerides 126 0 - 150 mg/dL LAB CHEMISTRY METHOD 08/13/2024 7:55 PM EDT [facility] HDL 74 >=40 mg/dL LAB CHEMISTRY METHOD 08/13/2024 7:55 PM EDT [facility] LDL Calculated 51 0 - 100 mg/dL LAB CHEMISTRY METHOD 08/13/2024 7:55 PM EDT [facility] VLDL Cholesterol Denilson 25.2 mg/dL LAB CHEMISTRY METHOD 08/13/2024 7:55 PM EDT [facility] Non HDL Chol. (LDL+VLDL) 76 <145 mg/dL LAB CHEMISTRY METHOD 08/13/2024 7:55 PM EDT [facility] Chol/HDL Ratio 2.0 0.0 - 4.4 LAB CHEMISTRY METHOD 08/13/2024 7:55 PM EDT [facility] Blood Venous blood specimen / Unknown Venipuncture / Unknown 08/13/2024 3:16 PM EDT 08/13/2024 3:16 PM EDT us Farrukh Epps MD LAB BLOOD ORDERABLES Final Resu lt [facility] [address] [place] [address], [place] [phone] * (ABNORMAL) Microalbumin creatinine urine ratio (08/13/2024 3:16 PM EDT) Creatinine, Urine 251.0 mg/dL LAB CHEMISTRY METHOD 08/13/2024 7:52 PM EDT [facility] Microalb, Ur 58.9(H) 0.0 - 29.0 mg/L LAB CHEMISTRY METHOD 08/13/2024 7:52 PM EDT [facility] Microalb/Crea t Ratio 23 <30 mg/g creat LAB CHEMISTRY METHOD 08/13/2024 7:52 PM EDT [facility] Urine Urine specimen obtained by clean catch procedure / Unknown Non-blood Collection / Unknown 08/13/2024 3:16 PM EDT 08/13/2024 3:16 PM EDT us Farrukh Epps MD LAB URINE ORDERABLES Final Resu lt Performing Organization Address [facility] Co de Phone Number [facility] [address] [place] [address], [place] [phone] * (ABNORMAL) Hemoglobin A1c (08/13/2024 3:16 PM EDT) Hemoglobin A1C 6.9(H) <6.5 % LAB CHEMISTRY METHOD 08/14/2024 10:59 AM EDT [facility] Mean Bld Glu Estim. 151 mg/dL LAB CHEMISTRY METHOD 08/14/2024 10:59 AM EDT [facility] Blood Venous blood specimen / Unknown Venipuncture / Unknown 08/13/2024 3:16 PM EDT 08/13/2024 3:16 PM EDT us Farrukh Epps MD LAB BLOOD ORDERABLES Final Resu lt Performing Organization Address City/[facility]/ZIP Co de Phone Number [facility] [address] [place] [address], * (ABNORMAL) Comprehensive metabolic panel (08/13/2024 3:16 PM EDT) Sodium 138 133 - 145 mmol/L LAB CHEMISTRY METHOD 08/13/2024 8:00 PM [facility] Potassium 3.8 3.5 - 5.5 mmol/L LAB CHEMISTRY METHOD 08/13/2024 8:00 PM [facility] Chloride 105 96 - 110 mmol/L LAB CHEMISTRY METHOD 08/13/2024 8:00 PM [facility] CO2 29 21 - 32 mmol/L LAB CHEMISTRY METHOD 08/13/2024 8:00 PM [facility] Anion Gap 4 3 - 11 LAB CHEMISTRY METHOD 08/13/2024 8:00 PM [facility] Glucose 134(H) 70 - 100 mg/dL LAB CHEMISTRY METHOD 08/13/2024 8:00 PM [facility] BUN 24 5 - 25 mg/dL LAB CHEMISTRY METHOD 08/13/2024 8:00 PM [facility] Creatinine 1.20(H) 0.50 - 1.10 mg/dL LAB CHEMISTRY METHOD 08/13/2024 8:00 PM [facility] eGFR 51(L) >=60 mL/min/1. 73m2 LAB CHEMISTRY METHOD 08/13/2024 8:00 PM [facility] Comment:Calculation based on the Chronic Kidney Disease Epidemiology Collaboration (CKD-EPI) equation refit without adjustment for race. BUN/Creatinine Ratio 20.0 LAB CHEMISTRY METHOD 08/13/2024 8:00 PM [facility] Calcium 9.0 8.5 - 10.5 mg/dL LAB CHEMISTRY METHOD 08/13/2024 8:00 PM [facility] AST (SGOT) 32 10 - 42 unit/L LAB CHEMISTRY METHOD 08/13/2024 8:00 PM EDT [facility] ALT (SGPT) 56 10 - 60 unit/L LAB CHEMISTRY METHOD 08/13/2024 8:00 PM EDT [facility] Alkaline Phosphatase 125(H) 42 - 121 unit/L LAB CHEMISTRY METHOD 08/13/2024 8:00 PM EDT [facility] Total Protein 6.7 6.0 - 8.0 g/dL LAB CHEMISTRY METHOD 08/13/2024 8:00 PM EDT [facility] Albumin 3.8 3.2 - 5.0 g/dL LAB CHEMISTRY METHOD 08/13/2024 8:00 PM EDT [facility] Total Bilirubin 0.7 0.0 - 1.4 mg/dL LAB CHEMISTRY METHOD 08/13/2024 8:00 PM EDT [facility] Blood Venous blood specimen / Unknown Venipuncture / Unknown 08/13/2024 3:16 PM EDT 08/13/2024 3:16 PM EDT us Farrukh Epps MD LAB BLOOD ORDERABLES Final Resu lt [facility] [address] [place] [address], * XR Shoulder 2+ Views Left (08/13/2024 3:04 PM EDT) Anatomical Region Laterality Modality Upper Extremities, Shoulder Left Radi ographic Imaging 08/13/2024 11:3 0 PM EDT Impressions 08/13/2024 11:41 PM EDT Minimal degenerative changes at the glenohumeral joint. POS - [id number] -------- FINAL REPORT -------- Dictated By: Meena Peres Dictated Date: 08/13/2024 23:30 ET Assigned Physician: Meena Peres Reviewed and Electronically Signed By: Meena Peres Signed Date: 08/13/2024 23:41 ET Workstation ID: [id number] Transcribed By: Self Edit Transcribed Date: 08/13/2024 23:30 ET Narrative 08/13/2024 11:41 PM EDT EXAM: Left shoulder x-ray HISTORY: Left shoulder pain. COMPARISON: 10/03/2022 FINDINGS: 4 views performed. Spurring at the glenohumeral joint with preserved joint space. No appreciable degenerative changes at the acromioclavicular joint. No evidence of an acute fracture or dislocation. No new destructive bone lesion. No soft tissue calcifications. Surgical clips in the left axillary region. Procedure Note Meena Peres MD - 08/13/2024 EXAM: Left shoulder x-ray HISTORY: Left shoulder pain. COMPARISON: 10/03/2022 FINDINGS: 4 views performed. Spurring at the glenohumeral joint with preserved joint space. Noappreciable degenerative changes at the acromioclavicular joint. Noevidence of an acute fracture or dislocation. No new destructive bonelesion. No soft tissue calcifications. Surgical clips in the leftaxillary region. IMPRESSION: Minimal degenerative changes at the glenohumeral joint. POS - [id number] -------- FINAL REPORT -------- Dictated By: Meena Peres Dictated Date: 08/13/2024 23:30 ET Assigned Physician: Meena Peres Reviewed and Electronically Signed By: Meena Peres Signed Date: 08/13/2024 23:41 ET Workstation ID: [id number] Transcribed By: Self Edit Transcribed Date: 08/13/2024 23:30 ET us Farrukh Epps MD IMG XR PROCEDURES Final Result * Polysomnography (07/24/2024 4:46 PM EDT) us Yamila Veloz MD SLEEP CENTER ORDERABLES Final Re sult * WA ARTHROCENTESIS/ASPIRATION/INJECTION MAJOR JOINT/BURSA W/O U/S GUIDANCE (07/12/2024 10:45 AM EDT) Zabrina Avila MD - 07/12/2024 10:45 AM EDT Zabrina Carlson MD 07/12/2024 1:19 PM L Inj/Asp: L knee Indications: pain Details: 22 G needle, anterolateral approach Medications: 4 mL lidocaine 1 %; 40 mg triamcinolone acetonide 40 mg/mL Outcome: tolerated well, no immediate complications Informed Consent: Laterality: Left Relevant images/test results available and reviewed: yes Health status cleared: Yes Procedure/treatment, purpose, treatment alternatives, risks/potential complications and benefits explained: yes Patient questions answered: yes Patient agrees, verbalizes understanding, and wants to proceed: yes Consent given by: Patient Informed consent discussion completed by Physician/ADILSON with patient: Verbal Pre-procedure timeout performed: yes us Zabrina Carlson MD IN CLINIC/BEDSIDE ORDERABLES F inal Result * MG Mammo Digital Diagnostic w Elio bilat (02/16/2024 10:05 AM EST) Anatomical Region Laterality Modality Breast Bilateral Mammography 02/16/2024 10:0 5 AM EST Impressions 02/16/2024 10:25 AM EST BILATERAL BREASTS: Benign, no evidence of malignancy. Normal interval follow-up is recommended in 12 months. Findings and recommendations were conveyed to the patient via cat scan technologist. BREAST DENSITY: B - There are scattered areas of fibroglandular density. BI-RADS CATEGORY: 2 - BENIGN RECOMMENDATION: Mammography: Diagnostic bilateral mammogram recommended in 1 year. Mammo Location: [facility], [address] [place] [address], [id number], . -------- FINAL REPORT -------- Dictated By: Wes Moran Dictated Date: 02/16/2024 10:05 ET Assigned Physician: Wes Moran Reviewed and Electronically Signed By: Wes Moran Signed Date: 02/16/2024 10:25 ET Workstation ID: [id number] Transcribed By: Self Edit Transcribed Date: 02/16/2024 10:20 ET Narrative 02/16/2024 10:25 AM EST HISTORY: Personal history of left breast cancer (invasive ductal carcinoma), status post lumpectomy May 2023. Completed adjuvant radiation. STUDY: Bilateral diagnostic mammography with tomosynthesis and CAD TECHNIQUE: Bilateral digital diagnostic mammography is obtained and read in conjunction with computer-aided detection. Tomosynthesis as well as 2-D C view imaging were obtained. COMPARISON: Comparison made to multiple prior, most recent left diagnostic mammogram on April 04, 2023, and most remote . RIGHT BREAST: No significant masses, suspicious calcifications or other abnormalities are seen. LEFT BREAST: Status post lumpectomy associated with local presumed chronic [...] mammogram recommended in 1 year. Mammo Location: [facility], [address] [place] [address], [address], . -------- FINAL REPORT -------- Dictated By: Wes Moran Dictated Date: 02/16/2024 10:05 ET Assigned Physician: Wes Moran Reviewed and Electronically Signed By: Wes Moran Signed Date: 02/16/2024 10:25 ET Workstation ID: [id number] Transcribed By: Self Edit Transcribed Date: 02/16/2024 10:20 ET Farrukh Epps MD IMG BI PROCEDURES Final Result * Diabetes Foot Exam (10/10/2023) [facility] Diabetes: Annual Foot Exam abstracted Result [facility] Provider HEALTH MAINTENANCE Final Result * Diabetes Eye Exam (09/21/2023) [facility] Diabetes: Annual Retina Eye Exam abstracted Result [facility] Provider HEALTH MAINTENANCE Final Result * Pap Smear (08/20/2022) [facility] Pap smear no interpretation , abstracted Result [facility] Historical Provider HEALTH MAINTENANCE Final Result * Colonoscopy (04/01/2014) [facility] Colonoscopy no interpretation , abstracted Anatomical Region Laterality Modality Other Result [facility] Historical Provider HEALTH MAINTENANCE Final Result * Hepatitis C Screening (10/20/2012) [facility] Hepatitis C Screening abstracted Result [facility] Provider HEALTH MAINTENANCE Final Result from Last 3 Months or Most Recently Relevant to Health Maintenance Insurance [employer] Care Teams Practice Lead Relationship Specialty Start Date End Date Farrukh Epps MD [address] [place] [id number] PCP - General Internal Medicine 09/05/19
--- OUTSIDE RECORDS SUMMARY | 2024-10-04 09:48 | XMS_ITS | Clinical Summary ---
Author Organization [facility] Address [address] [place] [address] Care Team Providers Care Global Sourcing Manager Name Role Phone Farrukh Epps MD Primary Care Provider [phone] Allergies Active Allergy Reactions Criticality Noted Date [...] 97 12/26/2023 10:30 AM EDT Temperature 35.8 C (96.4 F) 12/26/2023 10:30 AM EDT Respiratory Rate - - Oxygen Saturation 97% [...] years 1-dose series) 2020 COVID-19 Vaccine ( season) 2023 03/17/2021, 05/30/2020, 05/09/2020 Influenza Vaccine (#1) 2024 , 12/16/2020, 01/02/2019, Additional history exists Hepatitis B Vaccines Aged Out No long er eligible based on patient's age to complete this topic RSV Ped < 20 months Aged Out No longe r eligible based on patient's age to complete this topic Care Teams Global Sourcing Manager Relationship Specialty Start Date End Date Farrukh Epps MD PCP - General Internal Medicine 09/06/19
== END 2024-10-04 09:29 | disposition home or self-care (01) ==
LOC: CF 09:28
PROVIDERS: Visit Provider Internal Medicine
DX: M54.16 Radiculopathy, lumbar region (principal); M96.1 Postlaminectomy syndrome, not elsewhere classified; R21 Rash and other nonspecific skin eruption
CPT/HCPCS: 99212; J2003; J3301; Q9967

== ENCOUNTER 2024-10-04 13:28 | Outpatient (AMB) | payer MEDICARE, SELFPAY ==
[2024-10-04 14:19] VITALS: BP 146/62; PULSE 73; RESP 16; O2SAT 97; BMI 43.8
--- NOTE | 2024-10-04 14:19 | MHC.OFFVIS ---
Vital Signs 10/04/24 14:19 Height 5 ft 4 in Weight 255 lb BMI 43.8 BP 146/62 H Blood Pressure Location Rt radial Position Sitting Respiration 16 Pulse 73 Pulse Source Pulse Oximeter Pulse Oximetry (%) 97 Oxygen Delivery Method Room Air Intake Visit Reasons: Caudal JAKE Allergies metformin Adverse Reaction (Severe, Verified 08/08/24 09:56) GI upset liraglutide (From Victoza) Adverse Reaction (Intermediate, Verified 08/08/24 09:56) GI upset HPI HPI Caudal JAKE: Details: Presented for caudal JAKE. Noted to have an acute rash, likely fungal, in the gluteal intertriginous fold. Injected deferred until resolution. PFSH Medical History (Updated 12/10/22 @ 13:01 by REX Mack) Arthritis Back pain Insomnia Use of cane as ambulatory aid COVID Anxiety MAK on CPAP Diabetes HTN (hypertension) Lumbar post-laminectomy syndrome Surgical History (Updated 02/07/23 @ 13:39 by Briana Sabillon RN) Hx of carpal tunnel repair S/P placement of nerve stimulator Hx of tubal ligation Hx of colonoscopy History of total right knee replacement History of back surgery Family History Mother PONV (postoperative nausea and vomiting) Social History Patient Tobacco Use Status: Never used Tobacco Second Hand Smoke Exposure: No Current occupational status: disabled 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 Follow up after infection/rash resolution. Medications: New lorazepam (Ativan) Take 30 minutes prior to arrival to procedure 1 mg PO ONCE 1 tab 0RF anxiety Coding Level of Care Code Est Pt Level 3 (25017) Diagnoses Lumbar radiculopathy, right M54.16
== END 2024-10-04 14:40 | disposition home or self-care (01) ==
LOC: HO.PMCPRC 13:28
PROVIDERS: PCP Internal Medicine; Visit Provider Internal Medicine
DX: M54.16 Radiculopathy, lumbar region (principal)
CPT/HCPCS: 99213

== ENCOUNTER 2024-11-15 06:19 | Outpatient (REF) | payer MEDICARE, SELFPAY ==
--- NOTE | ~2024-11-15 | FL_ITS ---
EXAMINATION: FL GUIDANCE ONLY HISTORY: M96.1 - Postlaminectomy syndrome, not elsewhere classified COMPARISON: None available. TECHNIQUE: Fluoroscopy time: 0.4 minutes. Cumulative Dose: 24.6 mGy. DAP: 0.184 mGym2 Images: 2. FINDINGS: Fluoroscopic spot films demonstrate a needle in place in the sacrum. FL/FL guidance in treatment room IMPRESSION: Fluoroscopy during procedure. Please see procedure report for additional information. Electronically signed by: José Anderson MD 11/15/2024 11:49 AM EDT
--- OUTSIDE RECORDS SUMMARY | 2024-11-15 06:22 | XMS_ITS | Clinical Summary ---
Author Organization [facility] Address [address] [place] [address] Care Team Providers Care Information Security Analyst Name Role Phone Farrukh Epps MD Primary Care Provider [phone] Allergies Active Allergy Reactions Criticality Noted Date [...] of 2 - PCV) 12/21/2007 12/20/2006 Pneumococcal Vaccine (2 of 2 - PCV) 12/21/2007 12/20/2006 Breast Cancer Screening (Mammogram) 2010 DTap / Tdap / Td (2 - Td or Tdap) 01/09/2018 01/10/2008 RSV Adult > 60+ Yrs or (1 - Risk 60-74 years 1-dose series) 2020 COVID-19 Vaccine ( - season) 2024 03/17/2021, 05/30/2020, 05/09/2020 Influenza Vaccine (#1) 2024 , 12/16/2020, 01/02/2019, Additional history exists Hepatitis B Vaccines Aged Out No long er eligible based on patient's age to complete this topic RSV Ped < 20 months Aged Out No longe r eligible based on patient's age to complete this topic Care Teams Information Security Analyst Relationship Specialty Start Date End Date Farrukh Epps MD PCP - General Internal Medicine 09/06/19
== END 2024-11-15 06:20 | disposition home or self-care (01) ==
LOC: CF 06:19
PROVIDERS: Visit Provider Internal Medicine
DX: M96.1 Postlaminectomy syndrome, not elsewhere classified (principal); M54.16 Radiculopathy, lumbar region
CPT/HCPCS: 62323; J2003; J3301; Q9967

== ENCOUNTER 2024-11-15 10:55 | Outpatient (AMB) | payer MEDICARE, SELFPAY ==
--- OUTSIDE RECORDS SUMMARY | 2023-12-26 10:26 | XMS_ITS | Encounter Summary ---
Author Organization [facility] Address [address] [place] [address] Care Team Providers Care Financial Officer Name Role Phone Farrukh Epps MD Primary Care Provider [phone] Encounter Details Date Type Department Care Team (Late st Contact Info) Description 12/26/2023 10:26 AM EDT Hospital Encounter TH HISTORIC ENCOUNTERS EASTERN CONVERSION ONLY Kaushik Lima MD [address] [place] [id number] Social History Tobacco Use Types Packs/Day Years Used Date Smoking Tobacco: Never Smokeless Tobacco: Never Alcohol Use Standard Drinks/Week Comments Never 0 (1 standard drink = 0.6 oz pur e alcohol) Housing Instability Answer Date Recorde d Are you worried that in the next 2 months you may not have stable housing? No 01/29/2024 Food Access & Nutrition Answer Date Rec orded Do you have access to a vari ety of food including fruits and vegetables? Yes 01/29/2024 Access to Healthcare Answer Date Record ed Within the last 3 months, ho w many times did you visit the emergency department for your medical care? 0 01/29/2024 Health Literacy Answer Date Recorded How often do you need to hav e someone help you when you read instructions, pamphlets, or other written material from your doctor or pharmacy? Rarely 01/29/2024 Caregiver: How often do you need to have someone help you when you read instructions, pamphlets, or other written material from your doctor or pharmacy? Not on file 01/29/2024 Financial Risk Answer Date Recorded How hard is it for you to pa y for the very basics like food, housing, medical care, and air conditioning / heating? Hard 01/29/2024 Transportation Answer Date Recorded Has the lack of transportati on kept you from meetings, work, or from getting things needed for daily living? No Has the lack of transportati on kept you from medical appointments or from getting medications? No 01/29/2024 Social Isolation Answer Date Recorded How often do you feel lonely or isolated from those around you? Sometimes 01/29/2024 Food Risk Answer Date Recorded Within the past 12 months we worried whether our food would run out before we got money to buy more. Never true 01/29/2024 Within the past 12 months th e food we bought just didn't last and we didn't have money to get more. Never true 01/29/2024 Dependent Care Answer Date Recorded Do you need help finding or paying for care for your loved ones. For example, child support agent or elderly care for an older adult? No 01/29/2024 Education Answer Date Recorded Do you think completing more education or training, like finishing a GED, going to college, or learning a trade, would be helpful for you? No 01/29/2024 Employment and Income Answer Date Recor ded During the last four weeks, have you been actively looking for work? No 01/29/2024 Living Situation Answer Date Recorded What is your living situation? 1 03/30/2023 Comments No Sex and Gender Information Value Date Recorded Sex Assigned at Female 03/14/2024 8:06 AM EST Legal Sex Female 3:58 AM EST Gender Identity Female 03/14/2024 8:06 AM EST Sexual Orientation Straight 03/14/2024 8: 06 AM EST documented as of this encounter Last Filed Vital Signs Vital Sign Reading Time Taken Comments Blood Pressure 82/47 12/26/2023 10:30 AM EDT Sitting Left arm Pulse 97 12/26/2023 10:30 AM EDT Temperature - - Respiratory Rate - - Oxygen Saturation - - Inhaled Oxygen Concentration - - Weight 113 kg (250 lb) 12/26/2023 10:30 AM EDT Height 162.6 cm (5' 4 ) 10/28/2023 11:3 1 AM EDT Body Mass Index 42.91 12/16/2023 11:26 AM EDT documented in this encounter Progress Notes * Kaushik Lima MD - 12/26/2023 10:30 AM EDT Diagnosis/treatment: Left-sided stage I T1cN0 invasive ductal breast cancer, ER/MO-positive, HER2- negative (1+), diagnosed in 03/2023. She underwent a partial mastectomy and sentinel lymph node biopsy on 05/17/2023. She completed adjuvant breast radiation on 09/07/2023. She started adjuvant letrozole in late 10/2023. Interval history: The patient is a 63-year-old female who underwent a screening mammogram in 03/2023 which showed a small density in the upper left breast. A diagnostic left mammogram on 03/31/2023 showed a persistent small density with minimal spiculation in the upper left breast a left breast ultrasound 03/31/2023 showed a 0.6 x 0.5 x 0.5 cm irregularly marginated mass at 11:00, 13 cm above the nipple. She underwent an ultrasound guided core biopsy of the left breast mass on 04/04/2023 and the pathology revealed agrade 3 invasive ductal carcinoma, ER- strongly positive (greater than 99%), MO-strongly positive (greater than 98%), HER2-negative (1+), Ki-67 34%. She underwent a partial mastectomy and sentinel lymph node biopsy on 05/17/2023 and the pathology revealed a 0.9 cm grade 3 invasive ductal carcinoma. LVI was present. 0 of 1 sentinel nodes were involved with tumor. 0 of 2 nonsentinel nodes were involved with tumor. An Oncotype DX assay showed a low recurrence score of 10, translating into a 3% risk of distant recurrence at 9 years. She is postmenopausal. Her uterus and ovaries are intact. She reported chronic low-grade hot flashes until COVID-19 infection in 2019 at which time the hot flashes resolved and she has had chronic chills. She denies history of thrombosis. She has a history of significant osteoarthritis with left knee arthralgias and chronic right sciatica. She is S/P right knee replacement. She remains on the pain regimen with ibuprofen 800 mg, gabapentin 300 mg 4 times daily, and oxycodone 10 mg. A DEXA scan on 07/06/2023 showed normal bone density. She takes a multivitamin and additional vitamin D supplementation. She is tolerating adjuvant letrozole reasonably well. She reports mild fatigue. She reports tolerable frequent hot flashes and night sweats. She reports mild hair loss. She reports tolerable diffuse arthralgias. She reports chronic headaches. She reports a chronic cough and chronic mild dyspnea on exertion. She denies hemoptysis. She denies nausea or abdominal pain. She denies new or unusual bone pain. She has been on Ozempic since early 2022 and has mild chronic anorexia on therapy. She lost 30 pounds in 2022 on Ozempic. She has diabetes and right-sided sciatica. She has peripheral neuropathic symptoms in both hands and her right foot. Past medical history: Diabetes, diabetic retinopathy, osteoarthritis, right-sided sciatica, PIERRE, obstructive sleep apnea, stage IIIa chronic kidney disease, subclinical hypothyroidism, hypertension, hyperlipidemia, depression. Current medications: Insulin, ibuprofen, oxycodone, Zoloft, Flonase, trazodone, loratadine, lisinopril, hydrochlorothiazide, gabapentin, atorvastatin, lorazepam, Ozempic, Flexeril, vitamin D, metronidazole gel, Nasacort. Allergies: Metformin causes nausea and diarrhea, Trulicity causes nausea. Family history: Her maternal grandmother was diagnosed with liver cancer and in her 80s from the cancer. Her parents had no history of cancer. A maternal uncle was diagnosed with a brain cancer and in an uncertain age from a cancer. Her sister has no history of cancer. Her son and daughter have no history of cancer. Social history: She is disabled. She is . She has 1 son and 1 daughter. She denies alcohol use. She is a never smoker. Review of systems: The remainder of a 10 point review of systems was unremarkable. Physical examination: HEENT: Sclerae anicteric, normal oropharyngeal membrane. Neck: No lymphadenopathy. Lungs: Clear to auscultation. Heart: No murmurs. Breasts: Deferred. Abdomen: Soft, nontender, no organomegaly or masses. Extremities: No edema. Skin: No rash. Neurologic: Normal gait. Assessment/plan: The patient is a 63-year-old female who presented in 03/2023 with a left-sided stage I T1cN0 invasive ductal breast cancer, ER/MO-positive, HER2-negative (1+). She underwent a partial mastectomy and sentinel lymph node biopsy on 05/17/2023. An Oncotype DX assay showed a low recurrence score and adjuvant chemotherapy is not recommended in this setting. She completed adjuvant breast radiation. I recommended adjuvant hormonal therapy. I discussed potential adverse effects of aromatase inhibitor therapy, including hot flashes, mild hair thinning, arthralgias, vaginal dryness, and loss of bone density. An exacerbation of the patient's osteoarthritis would be a concern on aromatase inhibitortherapy. We would consider adjuvant tamoxifen therapy if the patient cannot tolerate adjuvant aromatase inhibitor therapy. She is tolerating adjuvant letrozole reasonably well. She reports mild fatigue. She reports tolerable frequent hot flashes and night sweats. She reports mild hair loss. She reports tolerable diffuse arthralgias. This encounter is of moderate risk. The patient has a stage I breast cancer, which is a life-threatening condition. She remains on adjuvant letrozole. documented in this encounter Plan of Treatment Upcoming Encounters Date Type Department Care Team (Late st Contact Info) Description 01/14/2025 1:00 PM EST Office Visit Endocrinology [address] [phone] Corin Fofana MD [address] [place] [phone] 02/05/2025 11:30 AM EST Office Visit Pulmonolgy [address] [phone] Yamila Veloz MD [address] [address] 02/14/2025 10:00 AM EST Office Visit Adult Medicine [address] [phone] Silver Anders PA [address] [place] [address] 02/18/2025 11:20 AM EST Appointment Radiology Department - [address] [phone] 03/12/2025 10:20 AM EST Office Visit Endocrinology - [address] [phone] Camilla Meyers PA [address] [place], [place] 03/29/2025 10:30 AM EST Office Visit [facility] Hematology Oncology [address] [place] [phone] Kaushik Lima MD [address] [place] [address] 05/13/2025 10:30 AM EDT Office Visit General Surgery [facility] [address] [facility] [address] [place] [address] Terry Bernabe MD [address] [place] [phone] documented as of this encounter Visit Diagnoses Not on filedocumented in this encounter Care Teams Financial Officer Relationship Specialty Start Date End Date Farrukh Epps MD [address] [place] [address] PCP - General Internal Medicine 09/05/19 documented as of this encounter
--- OUTSIDE RECORDS SUMMARY | 2024-11-12 10:30 | XMS_ITS | Encounter Summary ---
Author Organization [facility] Address [address] [place] [address] Care Team Providers Care Online Merchant Name Role Phone Farrukh Epps MD Primary Care Provider [phone] Reason for Visit * Reason Comments Follow-up Breast * Consultation (Routine) - Authorized Specialty Diagnoses / Procedures Referred By Contac t Referred To Contact General Surgery Diagnoses Carcinoma in situ of breast Procedures AR VISIT OFFICE OUTPATIENT ESTABLISHED MODERATE LEVEL Farrukh Epps MD [address] [place] [phone] Phone: tel: fax: Terry Bernabe MD [address] [address] Phone: tel: fax: Referral ID Status Reason Start Date Expiration Date V isits Requested Visits Authorized [id number] Authorized 11/09/2024 11/09/2025 1 1 Encounter Details Date Type Department Care Team (Late st Contact Info) Description 11/12/2024 10:30 AM EDT Office Visit General Surgery - [place] [address] [phone] Terry Bernabe MD [address] [place] [address] History of left breast cancer (Primary Dx); History of partial mastectomy of left breast Social History Tobacco Use Types Packs/Day Years [...] your loved ones. For example, child care leader or elderly care for an older adult? [...] Sign Reading Time Taken Comments Blood Pressure 143/81 11/12/2024 10:34 AM EDT Pulse 94 11/12/2024 10:34 AM EDT Temperature - - Respiratory Rate - - Oxygen Saturation - - Inhaled Oxygen Concentration - - Weight 120 kg (265 lb 3.2 oz) 11/12/2024 10:34 A M EDT Height 162.6 cm (5' 4.02 ) 11/12/2024 10:34 AM E DT Body Mass Index 45.49 11/12/2024 10:34 AM EDT documented in this encounter Progress Notes * Terry Bernabe MD - 11/12/2024 10:30 AM EDT Reason for visit: Follow-up stage I hormone receptor positive left breast cancer status postlumpectomy Referring MD:Farrukh Epps MD Cristina Rios is a 64 y.o. year old female with history of stage I, clinically axillary lymph node negative, 8.5 mm, high-grade, estrogen receptor positive, HER2 negative, infiltrating ductal carcinoma, left breast, 11:00 axis, 13 cm from the nipple, posterior depth, found on screening mammography. Status post left breast magnetic seed localized partial mastectomy and left axillary sentinel lymph node biopsy. At [facility]. May 17, 2023. Oncotype DX assay showed a low recurrence score of 10, translating into a 3% risk of distant recurrence at 9 years. Adjuvant radiation completed. Started letrozole under Dr. Lima-tolerating fairly well. Also history of insulin-dependent diabetes also treated with Ozempic. Currently doing quite well and without major complaints. Previously noted thickening and peau d'orange appearance of the lower inner quadrant of the left breast is no longer as much of a concern. Mammogram pending for February at the [facility] On exam the breast tissue volume is generous and character is predominantly adipose replaced with faint heterogeneous density in the upper outer quadrants bilaterally. The left breast is slightly smaller than the right. The left breast skin envelope is mildly hyperpigmented as a sequelae of radiation. There is also mild skin thickening and peau d'orange in the lower inner quadrant consistent withlymphedema changes postradiation. The operative site is completely healed. There is some mild volume loss and contour alteration/concavity underlying the operative site in the left breast upper outerquadrant. There is no clinically significant axillary lymphadenopathy. Left breast ultrasound-May 14, 2024 Examination was directed by the patient to the area of concern in the inferior medial left breast. There is some skin pigmentation and Peau D' Ringle appearance of the skin in the area of concern. Ultrasonographic evaluation revealed no evidence of cystic or solid masses. There is significant skin thickening. It could be due to postradiation changes. Clinical evaluation is recommended. CONCLUSIONS: Skin thickening in the area of concern. Clinical evaluation is recommended. Surgical consultation may be considered. RIGHT BREAST: No significant masses, suspicious calcifications or other abnormalities are seen. Mammogram-02/16/2024 RIGHT BREAST: No significant masses, suspicious calcifications or other abnormalities are seen. LEFT BREAST: Status post lumpectomy associated with local presumed chronic postoperative seroma. Nosignificant masses, suspicious calcifications or other abnormalities are seen. IMPRESSION: Benign, no evidence of malignancy. Normal interval follow-up is recommended in 12 months. PATHOLOGY: 8.5 mm, high-grade, invasive ductal carcinoma. Background of high-grade DCIS. Margins uninvolved by7 mm or more. 1 sentinel and 2 non-sentinel lymph nodes negative for metastatic carcinoma. Estrogenreceptor positive. Progesterone receptor positive. HER2 negative. The patient is doing very well after left breast partial mastectomy and adjuvant radiation to address stage I hormone receptor positive infiltrating ductal carcinoma. She is tolerating hormonal therapy which she plans to continue. There is no clinical evidence of local or systemic recurrence. Recommendation for twice yearly clinical breast examination and yearly dedicated breast imaging. The patient had several question which I believe were answered to her satisfaction. She understood agreed proceed. She will return in 6 months or sooner as needed. Thank you for the kind referral. IMPRESSION: 1. History of left breast cancer 2. History of partial mastectomy of left breast Medication and lab orders: No orders of the defined types were placed in this encounter. Other orders: None ROS: GENERAL: No malaise, significant weight loss or fever HEENT: No nose bleeds or scleral icterus NECK: No cervical or supraclavicular lymphadenopathy RESPIRATORY: No cough, wheezing or shortness of breath CARDIOVASCULAR: No chest pain, leg swelling or palpitations GI: No abdominal discomfort, blood in stools or black stools : No dysuria or frequency SKIN: No lesions, rash, jaundice or itching HEMATOLOGY/LYMPHOLOGY No prolonged bleeding, easy bruisability or swollen nodes ENDOCRINE: No cold or heat intolerance NEURO: No persistent headache, syncope, seizures, amaurosis, aphasia, hemiparesis or paralysis PSYCH: No mood disorders PAST MEDICAL HISTORY: Patient Active Problem List Diagnosis Date Noted MAK on CPAP 12/02/2023 Morbid obesity with BMI of 45.0-49.9, adult ([facility] V24, [facility] V28) 12/02/2023 Invasive ductal carcinoma of breast ([facility] V24, [facility] V28) 08/23/2023 Cervical spondylosis with radiculopathy 11/05/2022 Stage 3a chronic kidney disease ([facility] V24, [facility] V28) 06/26/2021 Postlaminectomy syndrome of lumbosacral region 07/02/2020 COVID-19 virus infection 03/02/2020 Conjunctivitis, allergic, bilateral 11/26/2019 Morbid obesity ([facility] V24, [facility] V28) 07/28/2018 Upper airway cough syndrome 07/22/2017 Subclinical hypothyroidism 06/14/2017 Essential hypertension 06/14/2017 Multiple pulmonary nodules 05/01/2017 Cataract 04/16/2016 Type 2 diabetes mellitus with eye manifestations ([facility] V24, [facility] V28) 03/31/2016 Diabetic retinopathy ([facility] V24, [facility] V28) 03/31/2016 Lumbar radicular pain 02/03/2015 Status post total right knee replacement 02/03/2015 Primary osteoarthritis of left knee 02/03/2015 Microalbuminuria 11/04/2014 Obstructive sleep apnea syndrome 05/11/2011 PIERRE (nonalcoholic steatohepatitis) 04/03/2010 Hyperlipidemia 03/11/2009 DM (diabetes mellitus), type 2 with renal complications ([facility] V24, [facility] V28) 09/21/2005 Depressive disorder 09/09/2005 Perennial allergic rhinitis 09/09/2005 PAST SURGICAL HISTORY: Past Surgical History: Procedure Laterality Date BACK SURGERY 06/2007 PROCEDURE: HISTORICAL BACK SURGERY; COMMENT: HERNIATED DISCS, 2 operations BACK SURGERY 06/2008 PROCEDURE: HISTORICAL BACK SURGERY; COMMENT: herniated disc BACK SURGERY 08/2019 PROCEDURE: HISTORICAL BACK SURGERY BACK SURGERY PROCEDURE:BACK SURGERY BREAST LUMPECTOMY Left 05/2023 [facility] CARPAL TUNNEL RELEASE Right 05/2022 PROCEDURE: HISTORICAL CARPAL TUNNEL REL JOINT REPLACEMENT Right PROCEDURE:JOINT REPLACEMENT;COMMENT:knee TOTAL KNEE ARTHROPLASTY Right 12/15/2011 PROCEDURE: HISTORICAL TOTAL KNEE REPLACE TUBAL LIGATION PROCEDURE: HISTORICAL TUBAL LIGATION SOCIAL HISTORY: Social History Tobacco Use Smoking status: Never Smokeless tobacco: Never Substance Use Topics Alcohol use: Never FAMILY HISTORY: Family History Problem Relation Name Age of Onset Diabetes Mother 84.00 HTN, Parkinson's, cataract, glaucoma Diabetes Father 85.00 Stomach cancer Maternal Grandmother Breast cancer Aunt m ? age Stomach cancer Uncle maternal Coronary artery disease Uncle maternal valve replacement Breast cancer Other m cousins 30s Ovarian cancer Neg Hx Colon cancer Neg Hx Family Status Relation Name Status Mother Father MGM Aunt m ? age Uncle maternal Uncle maternal Alive Other m cousins 30s Neg Hx (Not Specified) MGF unknown PGM unknown (Not Specified) PGF unknown Sister Alive No partnership data on file ACTIVE MEDICATIONS: No outpatient medications have been marked as taking for the 11/12/24 encounter (Office Visit) with Terry Brenabe MD. ALLERGIES: Allergies Allergen Reactions Liraglutide Nausea, bloating, Metformin Nausea And Vomiting PHYSICAL EXAM: Visit Vitals BP (!) 143/81 Pulse 94 Ht 1.626 m (64.02 ) Wt 120 kg (265 lb 3.2 oz) BMI 45.49 kg/m?? OB Status Postmenopausal Smoking Status Never BSA 2.2 m?? APPEARANCE: Alert and in no acute distress EYES: PERRL, EOMI, conjunctiva and sclera normal. NECK: Neck supple, no cervical or supraclavicular adenopathy HEART: RRR LUNG: non-labored respirations, patient is comfortable on room air without adventitious sounds LYMPH NODES: grossly normal ABDOMEN: benign, nondistended, centrally obese with a BMI of 45 EXTREMITIES: Extremities warm and well perfused without clubbing, cyanosis, or edema NEURO: Awake, alert and oriented x 3, moves all extremities SKIN: Skin color, texture, turgor normal, not jaundiced LABS: Lab Results Component Value Date WBC 7.4 02/26/2024 HGB 11.8 02/26/2024 HCT 37.4 02/26/2024 MCV 92.8 02/26/2024 Lab Results Component Value Date NA 138 08/13/2024 K 3.8 08/13/2024 CO2 29 08/13/2024 CL 105 08/13/2024 BUN 24 08/13/2024 ALKPHOS 125 (H) 08/13/2024 IMAGING: As above IMPRESSION: As above Plan: As above It was a pleasure seeing Cristina Riso at the [facility] today. The patient has been instructed to call with any additional questions or concerns. Terry Bernabe MD cc: Farrukh Epps MD documented in this encounter Plan of Treatment Upcoming Encounters Date Type Department Care Team (Late st Contact Info) Description 01/14/2025 1:00 PM EST Office Visit Endocrinology - [address] [phone] Corin Fofana MD [address] [place] [phone] 02/05/2025 11:30 AM EST Office Visit Pulmonolgy [address] [phone] Yamila Veloz MD [address] [place] [phone] 02/14/2025 10:00 AM EST Office Visit [facility] - [address] [phone] Silver Anders PA [address] [place] [address] 02/18/2025 11:20 AM EST Appointment Radiology Department - [address] [phone] 03/12/2025 10:20 AM EST Office Visit Endocrinology - [address] [phone] Camilla Meyers PA [address] [place], [place] 03/29/2025 10:30 AM EST Office Visit [facility] Hematology Oncology [address] [place] [phone] Kaushik Lima MD [address] [place] [phone] 05/13/2025 10:30 AM EDT Office Visit General Surgery [facility] 175 [facility] [address] [place] [phone] Terry Bernabe MD [address] [place] [phone] documented as of this encounter Visit Diagnoses Diagnosis History of left breast cancer- Primary History of partial mastectomy of left breast documented in this encounter Additional Health Concerns Assessment Noted Time PHQ-9 Depression Total Score: 0 01/29/20 24 12:10 PM EST documented as of this encounter Care Teams Online Merchant Relationship Specialty Start Date End Date Farrukh Epps MD [address] [place] [address] PCP - General Internal Medicine 09/05/19 documented as of this encounter
--- OUTSIDE RECORDS SUMMARY | 2024-11-15 09:45 | XMS_ITS | Encounter Summary ---
Author Organization [facility] Address [address] [place] [address] Care Team Providers Care Marketing Information Coordinator Name Role Phone Farrukh Epps MD Primary Care Provider [phone] Reason for Referral * Consultation (Routine) - Closed Specialty Diagnoses / Procedures Referred By Willis cuenca Referred To Contact Otolaryngology Diagnoses Hyperacusis of both ears Farrukh Epps MD [address] [place] [address] Phone: tel: fax: Carmelo Yip MD [address] [facility] [address] [place] [address] Phone: tel: fax: Referral ID Status Reason Start Date Expiration Date V isits Requested Visits Authorized [id number] Closed Specialty Services Required 11/15/2024 11/15/2025 6 6 * Consultation (Routine) - Pending Review Specialty Diagnoses / Procedures Referred By Willis cuenca Referred To Contact Nephrology Diagnoses Stage 3a chronic kidney disease (CMS/HCC V24, CMS/HCC V28) Microalbuminuria Farrukh Epps MD [address] [place] [address] Phone: tel: fax: Valentin Estes MD 100 [facility] [address] [place] [address] Phone: tel: fax: Referral ID Status Reason Start Date Expiration Date Visits Requested Visits Authorized [id number] Pending Review Specialty Services Required 11/15/2024 11/15/2025 1 1 Reason for Visit * Reason Comments Follow-up 3 month [facility] follow u p Encounter Details Date Type Department Care Team ([facility] st Contact Info) Description 11/15/2024 9:45 AM EDT Office Visit Adult Medicine [address] [phone] Farrukh Epps MD [address] [place] [address] Type 2 diabetes mellitus with stage 3 chronic kidney disease, with long-term current use of insulin, unspecified whether stage 3a or 3b CKD (CMS/HCC V24, CMS/HCC V28) (Primary Dx); Stage 3a chronic kidney disease (CMS/HCC V24, CMS/HCC V28); Microalbuminuria; Hyperacusis of both ears; Lumbar radicular pain; Status post total right knee replacement; Primary osteoarthritis of left knee; Essential hypertension; Pure hypercholesterolemia Social History Tobacco Use Types Packs/Day Years [...] for your loved ones. For example, childcare attendant or elderly care for an older adult? [...] Sign Reading Time Taken Comments Blood Pressure 114/58 11/15/2024 9:47 AM EDT Pulse 88 11/15/2024 9:47 AM EDT Temperature 36.5 C (97.7 F) 11/15/2024 9:47 AM EDT Respiratory Rate 14 11/15/2024 9:47 AM EDT Oxygen Saturation 99% 11/15/2024 9:47 AM EDT Inhaled Oxygen Concentration - - Weight 122 kg (269 lb) 11/15/2024 9:47 AM EDT Height 160 cm (5' 3 ) 11/15/2024 9:47 AM EDT Body Mass Index 47.65 11/15/2024 9:47 AM EDT documented in this encounter Progress Notes * Farrukh Epps MD - 11/15/2024 9:45 AM EDT CHIEF COMPLAINT: Follow-up (3 month [facility] follow up) IDENTIFIER: Cristina Rios is a 64 y.o. old female. HPI: Pt with diabetes Pt follows with endo seen last 09/2024 no change to management Pt is on Lantus 30 units once at bedtime Humalog 3-4 times a day (typically 4-10 units) Ozempic 1 mg once weekly. Pt to f/u with endo 01/2025 Pt last a1c 6.9 08/2024 Pt Has cgm does not have reader today Pt last ldl 51 08/2024 Pt moderate intensity statin therapy Pt last microalb/cr ratio 58.9 08/2024 up from previous value of 43 Pt has been advised to cut back on nsaids Is on acei Patient with htn pt is on hctz 25mg and lisinopril 10mg Bp today at goal 114/58 Pt denies light head/dizziness, shortness of breath , chest pain or cough. Pt with chronic knee and back pain Pt has lumbar disc disease s/p fusion 07/2019 Pt is following with pain management [place] Pt has stimulator placed around 07/2021 Pt is s/p right knee replacement pt follows with sports medicine Pt is on csc oxycodone 10mg q 6 hours pt is on gabapentin Pt with right side sciatica tolerable on the gabapentin Pt is to have lumbar cortisone today [facility] Pt with increased sciatica pain Pt is continues euflexxa q 6 months Pain is increased but is to have cortisone today Pt notes pain 01/14 today ROS: GENERAL: Negative for malaise, significant weight loss and fever HEENT: can hear heartbeat in ears loud pt has had cerumen disimpaction and normal brain mri symptoms persist > 6 months RESPIRATORY: No cough, wheezing or shortness of breath CARDIOVASCULAR: Negative for chest pain, leg swelling and palpitations MUSCULOSKELETAL: See HPI PAST MEDICAL HISTORY: Patient Active Problem List Diagnosis Date Noted MAK on CPAP 12/02/2023 Morbid obesity with BMI of 45.0-49.9, adult ([facility] V24, [facility] V28) 12/02/2023 Invasive ductal carcinoma of breast ([facility] V24, [facility] V28) 08/23/2023 Cervical spondylosis with radiculopathy 11/05/2022 Stage 3a chronic kidney disease ([facility] V24, [facility] V28) 06/26/2021 Postlaminectomy syndrome of lumbosacral region 07/02/2020 COVID-19 virus infection 03/02/2020 Conjunctivitis, allergic, bilateral 11/26/2019 Morbid obesity ([facility] V24, [facility] V28) 07/28/2018 Upper airway cough syndrome 07/22/2017 Subclinical hypothyroidism 06/14/2017 Essential hypertension 06/14/2017 Multiple pulmonary nodules 05/01/2017 Cataract 04/16/2016 Type 2 diabetes mellitus with eye manifestations ([facility] V24, [facility] V28) 03/31/2016 Diabetic retinopathy ([facility] V24, [facility] V28) 03/31/2016 Lumbar radicular pain 02/03/2015 Status post total right knee replacement 02/03/2015 Primary osteoarthritis of left knee 02/03/2015 Microalbuminuria 11/04/2014 Obstructive sleep apnea syndrome 05/11/2011 PIERRE (nonalcoholic steatohepatitis) 04/03/2010 Hyperlipidemia 03/11/2009 DM (diabetes mellitus), type 2 with renal complications ([facility] V24, [facility] V28) 09/21/2005 Depressive disorder 09/09/2005 Perennial allergic rhinitis 09/09/2005 SOCIAL HISTORY: Social History Tobacco Use Smoking status: Never Smokeless tobacco: Never Substance Use Topics Alcohol use: Never FAMILY HISTORY: Family Status Relation Name Status Mother Father MGM Aunt m ? age Uncle maternal Uncle maternal Alive Other m cousins 30s Neg Hx (Not Specified) MGF unknown PGM unknown (Not Specified) PGF unknown Sister Alive No partnership data on file Family History Problem Relation Name Age of Onset Diabetes Mother 84.00 HTN, Parkinson's, cataract, glaucoma Diabetes Father 85.00 Stomach cancer Maternal Grandmother Breast cancer Aunt m ? age Stomach cancer Uncle maternal Coronary artery disease Uncle maternal valve replacement Breast cancer Other m cousins 30s Ovarian cancer Neg Hx Colon cancer Neg Hx ACTIVE MEDICATIONS: No outpatient medications have been marked as taking for the 11/15/24 encounter (Appointment) with Farrukh Epps MD. ALLERGIES: Liraglutide and Metformin PHYSICAL EXAM: Blood pressure 114/58, pulse 88, temperature 36.5 ??C (97.7 ??F), temperature source Temporal, resp. rate 14, height 1.6 m (63 ), weight 122 kg (269 lb), SpO2 99%. There is no height or weight on file to calculate BMI. Plan is deferred until next visit APPEARANCE: Alert and in no acute distress EYES: PERRLA, conjunctiva and sclera normal EARS: External ears normal. Canals clear. TMs normal. HEART: RRR with normal S1 and S2, no murmurs, no gallops, no JVD appreciated LUNG: clear to auscultation bilaterally EXTREMITIES: Extremities warm and well perfused without clubbing, cyanosis, or edema LABS: none IMPRESSION: 1. Type 2 diabetes mellitus with stage 3 chronic kidney disease, with long-term current use of insulin, unspecified whether stage 3a or 3b CKD (CMS/HCC V24, CMS/HCC V28) 2. Stage 3a chronic kidney disease (CMS/HCC V24, CMS/HCC V28) 3. Microalbuminuria 4. Hyperacusis of both ears 5. Lumbar radicular pain 6. Status post total right knee replacement 7. Primary osteoarthritis of left knee 8. Essential hypertension 9. Pure hypercholesterolemia PLAN: Pt with diabetes controlled last A1c 6.9.Pt will continue current diabetic regimen of lantus,humalog, and ozempic. Last microalb/cr ratio 58.9 , will update microalbumin today pt is on acei Patient gfr is down to 51 patient with microalbuminuria, will at this time refer to renal Pt with htn well controlled pt will continue current regimen of lisinopril and hctz pt with high cholesterol on a statin recent ldl < 70 pt to continue current statin therapy Patient with chronic pain 2nd to knee and back pain, pt currently having a sciatica flare to have cortisone today, in the interim pt to continue on current csc regimen of oxycodone pt also to continue current regimen of gabapentin Patient notes hx of hearing heartbeat x 6 months hyperacusis pt has had cerumen disimpaction normalmri brain will now refer to ENT Patient to f/u in 3 months as per csc Myself and my colleagues have maintained a long-term, longitudinal relationship with this patient, overseeing care of chronic conditions including diabetes, hypertension and high cholesterol. This care relationship has significantly influenced my decision making and treatment plans during today's encounter. No orders of the defined types were placed in this encounter. ADDITIONAL ORDERS: None Farrukh Epps MD on 11/15/2024 at 7:33 AM EDT documented in this encounter Plan of Treatment Upcoming Encounters Date Type Department Care Team (Late st Contact Info) Description 01/14/2025 1:00 PM EST Office Visit Endocrinology - [address] [phone] Corin Fofana MD [address] [place] [id number] 02/05/2025 11:30 AM EST Office Visit Pulmonol[address] [phone] Yamila Veloz MD [address] [place] [phone] 02/14/2025 10:00 AM EST Office Visit Adult Medicine South - [address] [phone] Silver Anders PA [address] [place] [address] 02/18/2025 11:20 AM EST Appointment Radiology Department - [address] [phone] 03/12/2025 10:20 AM EST Office Visit Endocrinology - [address] [phone] Camilla Meyers PA [address] [place], [place] 03/29/2025 10:30 AM EST Office Visit [facility] Hematology Oncology [address] [place] [phone] Kaushik Lima MD [address] [place] [address] 05/13/2025 10:30 AM EDT Office Visit General Surgery [facility] [address] [facility] [address] [place] [phone] Terry Bernabe MD [address] [place] [address] Scheduled Referrals Name Type Priority Associated Diagnoses Order Schedule Ambulatory referral to Nephrology Outpatient Referral Routine Stage 3a chronic kidney disease ([facility] V24, CMS/[facility] V28) Microalbuminuria 1 Occurrences starting 11/15/2024 until 11/15/2025 Ambulatory referral to ENT Outpatient Referral Routine Hyperacusis of both ears 1 Occurrences starting 11/15/2024 until 11/15/2025 documented as of this encounter Visit Diagnoses Diagnosis Type 2 diabetes mellitus with stage 3 chronic kidney disease, with long-term current use of insulin, unspecified whether stage 3a or 3b CKD (CMS/HCC V24, CMS/HCC V28)- Primary Stage 3a chronic kidney disease (CMS/HCC V24, CMS/HCC V28) Microalbuminuria Proteinuria Hyperacusis of both ears Lumbar radicular pain Thoracic or lumbosacral neuritis or radiculitis, unspecified Status post total right knee replacement Primary osteoarthritis of left knee Essential hypertension Unspecified essential hypertension Pure hypercholesterolemia documented in this encounter Additional Health Concerns Assessment Noted Time PHQ-9 Depression Total Score: 0 01/29/20 24 12:10 PM EST documented as of this encounter Care Teams Marketing Information Coordinator Relationship Specialty Start Date End Date Farrukh Epps MD [address] [place], [place] PCP - General Internal Medicine 09/05/19 documented as of this encounter
[2024-11-15 10:56] VITALS: BP 138/67; PULSE 78; RESP 16; O2SAT 99; BMI 43.8
--- NOTE | 2024-11-15 10:56 | MHC.OFFVIS ---
Vital Signs 11/15/24 10:56 11/15/24 11:48 Height 5 ft 4 in Weight 255 lb BMI 43.8 BP 138/67 133/60 Blood Pressure Location Rt radial Rt radial Position Sitting Sitting Respiration 16 16 Pulse 78 82 Pulse Source Pulse Oximeter Pulse Oximeter Pulse Oximetry (%) 99 96 Oxygen Delivery Method Room Air Room Air Intake Visit Reasons: Caudal JAKE / Ativan & Oxy Allergies metformin Adverse Reaction (Severe, Verified 08/08/24 09:56) GI upset liraglutide (From Victoza) Adverse Reaction (Intermediate, Verified 08/08/24 09:56) GI upset HPI HPI Caudal JAKE / Ativan & Oxy: Details: Patient presents for scheduled procedure. Denies any recent cough, cold, infection, fever or other significant changes in medical history since last office visit. [facility] Medical History (Updated 12/10/22 @ 13:01 by REX Mack) Arthritis Back pain Insomnia Use of cane as ambulatory aid COVID Anxiety MAK on CPAP Diabetes HTN (hypertension) Lumbar post-laminectomy syndrome Surgical History (Updated 02/07/23 @ 13:39 by Briana Sabillon RN) Hx of carpal tunnel repair S/P placement of nerve stimulator Hx of tubal ligation Hx of colonoscopy History of total right knee replacement History of back surgery Family History Mother PONV (postoperative nausea and vomiting) Social History Patient Tobacco Use Status: Never used Tobacco Second Hand Smoke Exposure: No Current occupational status: disabled 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 The patient was placed in the prone position. The lumbosacral area was widely prepped with chloraprep and draped in sterile fashion. The skin overlying the target was anesthetized with 0.5% lidocaine. A 17 G needle was used to access the caudal epidural space using anatomic landmarks and x-ray guidance. We then injected contrast 1cc omnipaque 180 for verification of rostral epidural spread. Following negative aspiration of heme or CSF, a mixture of 10 ml 0.5% lidocaine with 80 mg triamcinilone was injected with minimal pressure into the epidural space. The needle was removed, skin cleansed and a sterile bandage was applied. The patient tolerated the procedure well and no complications were encountered. Following the procedure the patient's vital signs were stable. The patient was discharged home in good condition with post-procedural instructions. Time Out: Immediately prior to the procedure, the following was verbally confirmed that there is a signed consent form and that the correct patient, planned procedure, site and side are consistent with documentation and that necessary equipment and/or blood products are available prior to the start of the case. Complications: none EBL: <5 cc Coding 87869 - Caudal/Lumbar Epidural/Interlaminar with fluoroscopy Procedure code (CPT) selection complete Assessment & Plan Assessment & Plan (1) Lumbar post-laminectomy syndrome: Comment: Status post L4-5 laminectomy/fusion Status post lumbar SCS (Stimwave) Code(s): M96.1 - Postlaminectomy syndrome, not elsewhere classified Category: Medical (2) Lumbar radiculopathy, right: Code(s): M54.16 - Radiculopathy, lumbar region Category: Medical Plan Patient is status post caudal epidural steroid injection. Patient tolerated procedure well and was discharged home in stable condition with discharge instructions. All questions were answered. We will follow-up via telephone or in clinic to assess response to therapy. A follow-up appointment was made during today's visit. Orders: Orders FL guidance in treatment room 11/15/24 M96.1 - Postlaminectomy syndrome, not elsewhere classified Medications: Refilled oxycodone Take 1 hour prior to scheduled procedure 10 mg PO ONCE PRN 1 tab 0RF pain lorazepam (Ativan) Take 30 minutes prior to arrival to procedure 1 mg PO ONCE 1 tab 0RF anxiety Coding Level of Care Code Procedure Only Diagnoses Lumbar post-laminectomy syndrome M96.1 Lumbar radiculopathy, right M54.16 CPT Codes Coding - Joint 11: 70456 - Caudal/Lumbar Epidural/Interlaminar with fluoroscopy ([id number])
[2024-11-15 11:48] VITALS: BP 133/60; PULSE 82; RESP 16; O2SAT 96
--- OUTSIDE RECORDS SUMMARY | 2024-11-15 14:58 | XMS_ITS ---
Author Organization [facility] Address [address] [place] [address] Phone Care Team Providers Care Can Filler Name Role Phone Farrukh Epps MD Primary Care Provider [phone] Active Problems Problem Noted Date Diagnosed Date MAK on CPAP 12/02/2023 Morbid obesity with BMI of 4 5.0-49.9, adult ([facility] V24, [facility] V28) 12/02/2023 Invasive ductal carcinoma of breast ([facility] V24, [facility] V28) 08/23/2023 Overview (12/02/2023): 05/2023- partial [...] it myself. Stage 3a chronic kidney disease ([facility] V24, S/[facility] V28) 06/26/2021 Postlaminectomy syndrome of lumbosacral region 0 07/02/2020 COVID-19 virus infection 03/02/2020 Conjunctivitis, allergic, bilateral 11/26/2019 Morbid obesity ([facility] V24, [facility] V28) 2018 Upper airway cough syndrome 07/22/2017 Subclinical hypothyroidism 06/14/2017 Overview (12/02/2023): TSH 4.06, 06/13/2017 Essential hypertension 06/14/2017 Multiple pulmonary nodules 05/01/2017 Cataract 04/16/2016 Type 2 diabetes mellitus wit h eye manifestations ([facility] V24, [facility] V28) 03/31/2016 Diabetic retinopathy ([facility] V24, [facility] V28) 03/31/2016 Lumbar radicular pain 02/03/2015 Overview (12/02/2023): Has seen pain management who recommended right L4 transforaminal epidural injection. Status post total right knee replacement 015 Primary osteoarthritis of left knee 02/03/2015 Microalbuminuria 11/04/2014 Obstructive sleep apnea syndrome 05/11/2011 PIERRE (nonalcoholic steatohepatitis) 04/03/2010 Hyperlipidemia 03/11/2009 DM (diabetes mellitus), type 2 with renal complications ([facility] V24, [facility] V28) 09/21/2005 Overview (12/02/2023): 11/2015 - monitor at present Depressive disorder 09/09/2005 Perennial allergic rhinitis 09/09/2005 Current Oncology Plans No current plan information found. Past Plans No past plan information found. Radiation Treatments * No radiation treatments are documented for this patient in Psychiatric. Treatments may have been administered in another system. Lifetime Dose Tracking * Chemical Lifetime Dose Automatic Entry Manual Entr y CTDIvol 23.12 mGy 23.12 mGy 0 mGy
--- OUTSIDE RECORDS SUMMARY | 2024-11-15 14:58 | XMS_ITS | Clinical Summary ---
Author Organization [facility] Address [address] [place] [address] Phone Care Team Providers Care Practice Manager Name Role Phone Farrukh Epps MD Primary Care Provider [phone] Allergies Active Allergy Reactions Criticality Noted Date [...] MOUTH EVERY DAY 90 tablet 024 Active pen needle, diabetic (BD Ultra-Fine Short Pen Needle) 31 gauge x 5/16 needleIndicatio ns:Type 2 diabetes mellitus with diabetic microalbuminuri a, with long-term current use of insulin ([facility] V24, [facility] V28) Use to inject 1-4 times daily.E11.29 100 each 11 025 Active sertraline (ZOLOFT) 25 mg tablet Take 1 tablet (25 mg total) by mouth 1 (one) time each day. 90 tablet 1 025 Active FreeStyle Cy 2 Sensor kit 025 Active lisinopriL (PRINIVIL,ZESTR IL) 10 mg [...] each day. 90 tablet 1 025 Active letrozole (FEMARA) [...] CALL MD 45 mL 1 025 Active traZODone (DESYREL) 100 mg tablet Take 2 tablets (200 mg total) by mouth at bedtime. at bedtime 180 tablet 1 025 Active insulin glargine (Lantus Solostar U-100 Insulin) 100 unit/mL (3 mL) injection penIndications: Type 2 diabetes mellitus with chronic kidney disease, with long-term current use of insulin, unspecified CKD stage ([facility] V24, [facility] V28) Inject 30 Units under the skin 1 (one) time each day. 30 mL 5 025 Active Vitamin D3 25 mcg (1,000 unit) tablet TAKE 1 TABLET BY MOUTH EVERY DAY 90 tablet 2 025 Active sertraline (ZOLOFT) 100 mg tablet TAKE 1 TABLET BY MOUTH EVERY DAY 90 tablet 1 025 Active semaglutide (Ozempic) 1 mg/dose (4 mg/3 mL) injection pen Inject 1 mg under the skin every 7 (seven) days. 3 mL 5 025 Active ibuprofen (ADVIL,MOTRIN) 800 mg tablet TAKE 1 TABLET BY MOUTH EVERY 8 HOURS NEEDED FOR PAIN 270 tablet 1 025 Active blood-glucose sensor (FreeStyle Cy 3 Plus Sensor) deviceIndicatio ns:Type 2 diabetes mellitus with chronic kidney disease, with long-term current use of insulin, unspecified CKD stage ([facility] V24, [facility] V28) Change sensor every 15 days 6 each 1 025 Active atorvastatin (LIPITOR) 10 mg tablet TAKE 1 TABLET BY MOUTH EVERYDAY AT BEDTIME 90 tablet 1 025 Active oxyCODONE (ROXICODONE) 10 mg immediate release tablet Take 1 tablet (10 mg total) by mouth every 4 (four) hours. Max Daily Amount: 60 mg 112 tablet 025 Active blood-glucose sensor (FreeStyle Cy 3 Sensor) deviceIndicatio ns:Type 2 diabetes mellitus with chronic kidney disease, with long-term current use of insulin, unspecified CKD stage ([facility] V24, [facility] V28) Box = Kit = EA, use one sensor every 14 days. 2 each 3 025 2024 Discontinued(F ormulary change) atorvastatin (LIPITOR) 10 mg tablet Take 1 tablet (10 mg total) by mouth at bedtime. 90 tablet 1 025 2024 Discontinued oxyCODONE [...] knee 4 mL inj Once PRN Procedure 11/08/2024 11/08/2024 Ended triamcinolone acetonide (KENALOG-40) 40 mg/mL injection 40 mgIndications:Primary osteoarthritis of left knee 40 mg IAtc Once PRN Procedure 11/08/2024 11/08/2024 Ended Active Problems Problem Noted Date Diagnosed Date MAK on CPAP 12/02/2023 Morbid obesity with BMI of 4 5.0-49.9, adult ([facility] V24, [facility] V28) 12/02/2023 Invasive ductal carcinoma of breast ([facility] V24, [facility] V28) 08/23/2023 Overview (12/02/2023): 05/2023- partial left [...] it myself. Stage 3a chronic kidney disease ([facility] V24, S/[facility] V28) 06/26/2021 Postlaminectomy syndrome of lumbosacral region 0 07/02/2020 COVID-19 virus infection 03/02/2020 Conjunctivitis, allergic, bilateral 11/26/2019 Morbid obesity ([facility] V24, [facility] V28) 2018 Upper airway cough syndrome 07/22/2017 Subclinical hypothyroidism 06/14/2017 Overview (12/02/2023): TSH 4.06, 06/13/2017 Essential hypertension 06/14/2017 Multiple pulmonary nodules 05/01/2017 Cataract 04/16/2016 Type 2 diabetes mellitus wit h eye manifestations ([facility] V24, [facility] V28) 03/31/2016 Diabetic retinopathy ([facility] V24, [facility] V28) 03/31/2016 Lumbar radicular pain 02/03/2015 Overview (12/02/2023): Has seen pain management who recommended right L4 transforaminal epidural injection. Status post total right knee replacement 015 Primary osteoarthritis of left knee 02/03/2015 Microalbuminuria 11/04/2014 Obstructive sleep apnea syndrome 05/11/2011 PIERRE (nonalcoholic steatohepatitis) 04/03/2010 Hyperlipidemia 03/11/2009 DM (diabetes mellitus), type 2 with renal complications ([facility] V24, [facility] V28) 09/21/2005 Overview (12/02/2023): 11/2015 - monitor at present Depressive disorder 09/09/2005 Perennial allergic rhinitis 09/09/2005 Encounters Date Type Department Care Team Description 11/15/2024 9:45 AM EDT Office Visit Adult Medicine [address] [phone] Farrukh Epps MD Type 2 diabetes mellitus with stage 3 chronic kidney disease, with long-term current use of insulin, unspecified whether stage 3a or 3b CKD ([facility] V24, [facility] V28) (Primary Dx); Stage 3a chronic kidney disease ([facility] V24, [facility] V28); Microalbuminuria; Hyperacusis of both ears; Lumbar radicular pain; Status post total right knee replacement; Primary osteoarthritis of left knee; Essential hypertension; Pure hypercholesterolemia 11/12/2024 10:30 AM EDT Office Visit General Surgery [facility] 175 [facility] [address] [place] [phone] Terry Bernabe MD History of left breast cancer (Primary Dx); History of partial mastectomy of left breast 11/08/2024 8:45 AM EDT Office Visit Orthopedic Surgery [facility] 160 175 [facility] [address] [place] [phone] Zabrina Carlson MD Primary osteoarthritis of left knee (Primary Dx) 10/31/2024 Telephone Pulmonolgy [facility] [address] [phone] Yamila Veloz MD 10/25/2024 10:00 AM EDT [facility] 175 [facility] [address] [place] [phone] Yamila Veloz MD MAK on CPAP (Primary Dx); Lung nodules; Chronic bronchitis, unspecified chronic bronchitis type (CMS/HCC V24, CMS/HCC V28) 10/10/2024 10:12 AM EDT - 10/10/2024 11:59 PM EDT Hospital Encounter CT Scan - [address] [phone] Pneumonia of left upper lobe due to infectious organism; Lung nodules Discharge Disposition: Home or Self Care 09/26/2024 10:30 AM EDT Office Visit [facility] Hematology Oncology [address] [place] [phone] Kaushik Lima MD Infiltrating ductal carcinoma of breast, unspecified laterality (CMS/HCC V24, CMS/HCC V28) (Primary Dx) 09/25/2024 Telephone Endocrinology - [address] [phone] Camilla Meyers PA 09/19/2024 Telephone Pulmonolgy [facility] 175 [facility] [address] [place] [phone] Marie Vazquez FREDDY 09/18/2024 Telephone Adult Medicine [facility] [phone] [place] [phone] Farrukh Epps MD 09/11/2024 10:30 AM EDT Office Visit Endocrinology - [address] [phone] Corin Fofana MD Type 2 diabetes mellitus with chronic kidney disease, with long-term current use of insulin, unspecified CKD stage ([facility] V24, [facility] V28) (Primary Dx) from Last 3 Months Immunizations [...] Bivalent, Or iginal + Ba.1 (Non-US Trademark COMIRNATY Bivalent) 01/19/2022 Pneumococcal polysaccharide 23 valent (Pneumovax [...] 2 diabetes mellitus wit h eye manifestations ([facility] [place], [facility] [place]) 03/31/2016 DX:Type 2 diabetes mellitus with eye manifestations (HCC) Diabetic retinopathy ([facility]24, [facility] [place] 03/31/2016 DX:Diabetic retinopathy (HCC ) Type 2 diabetes mellitus wit h cataract ([facility] [place], [facility] [place]) 03/31/2016 DX:Type 2 diabetes mellitus with cataract (HCC); COMMENT: 11/2015 - monitor at present DM (diabetes mellitus), type 2 with renal complications ([facility] [place], [facility] [place]) 09/21/2005 DX:DM (diabetes mellitus), t ype 2 with renal complications (HCC); COMMENT: (added in medical risk adjustment review - 06/02/2010) Morbid obesity ([facility] [place], [facility]) 10/11/2015 DX:Morbid obesity (HCC) Cataract 04/16/2016 DX:Cataract Morbid obesity with BMI of 4 5.0-49.9, adult ([facility], [facility]) 10/11/2015 DX:Morbid obesity wit h BMI of 45.0-49.9, adult (HCC) COVID-19 virus infection 03/02/2020 DX:COVI D-19 virus infection Invasive ductal carcinoma of breast ([facility], [facility]) 08/23/2023 DX:Invasive ductal carcinom a of breast (HCC) Diabetes mellitus ([facility], [facility]) DX:Diabetes mellitus (HCC) Sleep apnea DX:Sleep [...] care for your loved ones. For example, infant childcare provider or elderly care for an older adult? [...] Mass Index 47.65 11/15/2024 9:47 AM EDT Plan of Treatment Upcoming Encounters Date Type Department Care Team (Late st Contact Info) Description 01/14/2025 1:00 PM EST Office Visit Endocrinology - [address] [phone] Corin Fofana MD [address] [place] [address] 02/05/2025 11:30 AM EST Office Visit Pulmonolgy [facility] [address] [phone] Yamila Veloz MD [address] [address] 02/14/2025 10:00 AM EST Office Visit Adult Medicine [address] [phone] Silver Anders PA [address] [place] [address] 02/18/2025 11:20 AM EST Appointment Radiology Department - [address] [phone] 03/12/2025 10:20 AM EST Office Visit Endocrinology - [address] [phone] Camilla Meyers PA [address] [place] [address] 03/29/2025 10:30 AM EST Office Visit [facility] Hematology Oncology [address] [place] [phone] Kaushik Lima MD [address] [place] [phone] 05/13/2025 10:30 AM EDT Office Visit General Surgery - [place] 175 [facility] [address] [place] [address] Terry Bernabe MD [address] [place] [address] Health Maintenance Due Date Last Done Comments Zoster Vaccines (1 of 2) 10/31/1979 Pneumococcal Vaccine: 50+ Years (2 of 2 - PCV) 12/21/2007 12/20/2006 RSV Immunization Adult Patients (1 - Risk 60-74 years 1-dose series) 2020 HIV Screening 02/13/2022 Medicare Annual Wellness Visit 02/13/2022 Depression Screening 03/07/2024 01/29/2024 Colorectal Cancer Screening: Colonoscopy 04/01/2024 04/01/2014 Diabetes: Annual Retina Eye Exam 09/20/2024 09/21/2023 Diabetes: Annual Foot Exam 10/09/2024 10/10/2023 COVID-19 Vaccine ( season) 2024 02/16/2023, 03/17/2021, 05/30/2020, Additional history exists Influenza Vaccine (#1) 2024 , 01/23/2023, 01/13/2022, [...] 02/16/20 24, 04/04/2023, 04/04/2023, Additional history exists DTaP,Tdap,and Td [...] Procedure Name Priority Date/Time Associated Diagnosis Comments OR ARTHROCENTESIS/ASPIRA TION/INJECTION MAJOR JOINT/BURSA W/O U/S GUIDANCE Routine 11/08/2024 8:45 AM EDT Primary osteoarthritis of left knee CT CHEST WO CONTRAST Routine 10/10/2024 10:25 AM EDT Pneumonia of left upper lobe due to infectious organism Lung nodules POLYSOMNOGRAPHY Routine 08/26/2024 11:17 AM EDT MAK (obstructive sleep apnea) MICROALBUMIN CREATININE URINE RATIO Routine 08/13/2024 3:16 PM EDT Type 2 diabetes mellitus with stage 3 chronic kidney disease, with long-term current use of insulin, unspecified whether stage 3a or 3b CKD ([facility] V24, [facility] V28) Microalbuminuria COMPREHENSIVE METABOLIC PANEL Routine 08/13/2024 3:16 PM EDT Type 2 diabetes mellitus with stage 3 chronic kidney disease, with long-term current use of insulin, unspecified whether stage 3a or 3b CKD ([facility] V24, [facility] V28) Essential hypertension Encounter for long-term (current) use of medications HEMOGLOBIN A1C Routine 08/13/2024 3:16 PM EDT Type 2 diabetes mellitus with stage 3 chronic kidney disease, with long-term current use of insulin, unspecified whether stage 3a or 3b CKD ([facility] V24, [facility] V28) LIPID PANEL WITH REFLEX TO DIRECT LDL Routine 08/13/2024 3:16 PM EDT Pure hypercholesterolemia MAMMO DIGITAL DIAGNOSTIC W ELIO BILAT Routine 02/16/2024 10:05 AM EST Abnormal mammogram DIABETES FOOT EXAM Routine 10/10/2023 DIABETES EYE EXAM Routine 09/21/2023 PAP SMEAR Routine 08/20/2022 COLONOSCOPY Routine 04/01/2014 HEPATITIS C SCREENING Routine 10/20/2012 from Last 3 Months or Most Recently Relevant to Health Maintenance Results * OR ARTHROCENTESIS/ASPIRATION/INJECTION MAJOR JOINT/BURSA W/O U/S GUIDANCE (11/08/2024 8:45 AM EDT) Zabrina Avila MD - 11/08/2024 8:45 AM EDT Zabrina Carlson MD 11/11/2024 8:07 PM L Inj/Asp: L knee Indications: pain Details: 22 G needle, anterolateral approach Medications: 4 mL lidocaine 1 %; 40 mg triamcinolone acetonide 40 mg/mL Outcome: tolerated well, no immediate complications Informed Consent: Laterality: Left Relevant images/test results available and reviewed: yes Health status cleared: Yes Procedure/treatment, purpose, treatment alternatives, risks/potential complications and benefits explained: yes Risk/complications/benefits details: Risks include bleeding, infection, increase in pain Patient questions answered: yes Patient agrees, verbalizes understanding, and wants to proceed: yes Consent given by: Patient Informed consent discussion completed by Physician/ADILSON with patient: Verbal Pre-procedure timeout performed: yes us Zabrina Carlson MD IN CLINIC/BEDSIDE ORDERABLES F inal Result * CT Chest wo Contrast (10/10/2024 10:25 AM EDT) Anatomical Region Laterality Modality Body Computed Tomogra phy 10/10/2024 1:16 PM EDT Impressions 10/10/2024 1:32 PM EDT 1. Multiple innumerable pulmonary nodules grossly stable from the 2022 examination. -------- FINAL REPORT -------- Dictated By: Sukhwinder Nation Dictated Date: 10/10/2024 13:16 ET Assigned Physician: Sukhwinder Nation Reviewed and Electronically Signed By: Sukhwinder Nation Signed Date: 10/10/2024 13:32 ET Workstation ID: [id number] Transcribed By: Self Edit Transcribed Date: 10/10/2024 13:16 ET Narrative 10/10/2024 1:[address] CHEST HISTORY: Pneumonia, effusion or abscess suspected, xray done Lung nodule, 6-8mm. TECHNIQUE: Chest CT was performed utilizing contiguous noncontrasted axial images from the thoracic inlet to below the diaphragm. The images were reformatted in the coronal and sagittal planes. Radiation dosage is 23.12mGy COMPARISON: CT chest from 04/12/2024, CT chest from 07/19/2022 and 11/15/2023 FINDINGS: Base of neck: Small thyroid nodules within the left thyroid. Mediastinum: The heart is normal in size, no pericardial effusion. Moderate atherosclerosis of the thoracic aorta. Subcentimeter lymph nodes within the mediastinal stations. Lungs: Evaluation of the lung parenchyma demonstrates 3 mm solid right upper lobe nodule (series 2, image 77). 2 mm solid pulmonary nodule within the right upper lobe (series 2, image 86). 3 mm solid nodule within the right upper lobe (series 2, image 123). 4 mm solid nodule within the right upper lobe (series 2, image 119). 4 mm solid nodule within the right upper lobe (series 2, image 124). 4 mm solid nodule within the right lower lobe (series 2, image 141). 4 mm solid nodule within the left upper lobe (series 2, image 134). 6 mm solid nodule within the left lower lobe (series 2, image 252). There are innumerable innumerable scattered solid pulmonary nodules throughout the lung parenchyma. No focal consolidation or effusion. The trachea and mainstem bronchi are patent. Upper Abdomen: Limited visualization of the extreme upper abdomen are within normal limits. MSK: Postoperative changes of the left breast. Skin thickening of the left breast. Moderate degenerative changes of thoracic spine. Procedure Note Sukhwinder Nation MD - 10/10/2024 CT CHEST HISTORY: Pneumonia, effusion or abscess suspected, xray done Lung nodule, 6-8mm. TECHNIQUE: Chest CT was performed utilizing contiguous noncontrasted axialimages from the thoracic inlet to below the diaphragm. The images werereformatted in the coronal and sagittal planes. Radiation dosage is23.12mGy COMPARISON: CT chest from 04/12/2024, CT chest from 07/19/2022 and11/15/2023 FINDINGS: Base of neck: Small thyroid nodules within the left thyroid. Mediastinum: The heart is normal in size, no pericardial effusion.Moderate atherosclerosis of the thoracic aorta. Subcentimeter lymph nodeswithin the mediastinal stations. Lungs: Evaluation of the lung parenchyma demonstrates 3 mm solid rightupper lobe nodule (series 2, image 77). 2 mm solid pulmonary nodule withinthe right upper lobe (series 2, image 86). 3 mm solid nodule within theright upper lobe (series 2, image 123). 4 mm solid nodule within the rightupper lobe (series 2, image 119). 4 mm solid nodule within the right upperlobe (series 2, image 124). 4 mm solid nodule within the right lower lobe(series 2, image 141). 4 mm solid nodule within the left upper lobe(series 2, image 134). 6 mm solid nodule within the left lower lobe(series 2, image 252). There are innumerable innumerable scattered solidpulmonary nodules throughout the lung parenchyma. No focal consolidationor effusion. The trachea and mainstem bronchi are patent. Upper Abdomen: Limited visualization of the extreme upper abdomen arewithin normal limits. MSK: Postoperative changes of the left breast. Skin thickening of the leftbreast. Moderate degenerative changes of thoracic spine. IMPRESSION: 1. Multiple innumerable pulmonary nodules grossly stable from the 2022examination. -------- FINAL REPORT -------- Dictated By: Sukhwinder Nation Dictated Date: 10/10/2024 13:16 ET Assigned Physician: Sukhwinder Natino Reviewed and Electronically Signed By: Suhkwinder Nation Signed Date: 10/10/2024 13:32 ET Workstation ID: [id number] Transcribed By: Self Edit Transcribed Date: 10/10/2024 13:16 ET us Yamila Veloz MD IMG CT PROCEDURES Final Result * Polysomnography (08/26/2024 11:17 AM EDT) us Yamila Veloz MD [facility] ORDERABLES Final Re sult * Lipid panel with reflex to direct LDL (08/13/2024 3:16 PM EDT) Cholesterol 150 0 - 200 mg/dL LAB CHEMISTRY METHOD 08/13/2024 7:55 PM EDT [facility] Triglycerides 126 0 - 150 mg/dL LAB CHEMISTRY METHOD 08/13/2024 7:55 PM EDT [facility] HDL 74 >=40 mg/dL LAB CHEMISTRY METHOD 08/13/2024 7:55 PM EDT [facility] LDL Calculated 51 0 - 100 mg/dL LAB CHEMISTRY METHOD 08/13/2024 7:55 PM EDT [facility] VLDL Cholesterol Denilson 25.2 mg/dL LAB CHEMISTRY METHOD 08/13/2024 7:55 PM EDT [facility] Non HDL Chol. (LDL+VLDL) 76 <145 mg/dL LAB CHEMISTRY METHOD 08/13/2024 7:55 PM EDT [facility] Chol/HDL Ratio 2.0 0.0 - 4.4 LAB CHEMISTRY METHOD 08/13/2024 7:55 PM EDT [facility] Blood Venous blood specimen / Unknown Venipuncture / Unknown 08/13/2024 3:16 PM EDT 08/13/2024 3:16 PM EDT us Farrukh Epps MD LAB BLOOD ORDERABLES Final Resu lt Performing Organization Address [facility]/ZIP Co de Phone Number [facility] [address] [place] [address], [place] [phone] * (ABNORMAL) Microalbumin creatinine urine ratio (08/13/2024 3:16 PM EDT) Creatinine, Urine 251.0 mg/dL LAB CHEMISTRY METHOD 08/13/2024 7:52 PM EDT [facility] Microalb, Ur 58.9(H) 0.0 - 29.0 mg/L LAB CHEMISTRY METHOD 08/13/2024 7:52 PM EDT [facility] Microalb/Crea t Ratio 23 <30 mg/g creat LAB CHEMISTRY METHOD 08/13/2024 7:52 PM EDT [facility] Urine Urine specimen obtained by clean catch procedure / Unknown Non-blood Collection / Unknown 08/13/2024 3:16 PM EDT 08/13/2024 3:16 PM EDT us Farrukh Epps MD LAB URINE ORDERABLES Final Resu lt Performing Organization Address [facility]/ZIP Co de Phone Number [facility] [address] [place] [address], [place] [phone] * (ABNORMAL) Hemoglobin A1c (08/13/2024 3:16 PM EDT) Pathologist [facility] Hemoglobin A1C 6.9(H) <6.5 % LAB CHEMISTRY METHOD 08/14/2024 10:59 AM [facility] Mean Bld Glu Estim. 151 mg/dL LAB CHEMISTRY METHOD 08/14/2024 10:59 AM [facility] Blood Venous blood specimen / Unknown Venipuncture / Unknown 08/13/2024 3:16 PM EDT 08/13/2024 3:16 PM EDT us Farrukh Epps MD LAB BLOOD ORDERABLES Final Resu lt [facility] [address] [place] [address], * (ABNORMAL) Comprehensive metabolic panel (08/13/2024 3:16 PM EDT) [facility] Sodium 138 133 - 145 mmol/L LAB CHEMISTRY METHOD 08/13/2024 8:00 PM [facility] Potassium 3.8 3.5 - 5.5 mmol/L LAB CHEMISTRY METHOD 08/13/2024 8:00 PM [facility] Chloride 105 96 - 110 mmol/L LAB CHEMISTRY METHOD 08/13/2024 8:00 PM [facility] CO2 29 21 - 32 mmol/L LAB CHEMISTRY METHOD 08/13/2024 8:00 PM [facility] Anion Gap 4 3 - 11 LAB CHEMISTRY METHOD 08/13/2024 8:00 PM [facility] Glucose 134(H) 70 - 100 mg/dL LAB CHEMISTRY METHOD 08/13/2024 8:00 PM [facility] BUN 24 5 - 25 mg/dL LAB CHEMISTRY METHOD 08/13/2024 8:00 PM [facility] Creatinine 1.20(H) 0.50 - 1.10 mg/dL LAB CHEMISTRY METHOD 08/13/2024 8:00 PM [facility] eGFR 51(L) >=60 mL/min/1. 73m2 LAB CHEMISTRY METHOD 08/13/2024 8:00 PM [facility] Comment:Calculation based on the Chronic Kidney Disease Epidemiology Collaboration (CKD-EPI) equation refit without adjustment for race. BUN/Creatinine Ratio 20.0 LAB CHEMISTRY METHOD 08/13/2024 8:00 PM [facility] Calcium 9.0 8.5 - 10.5 mg/dL LAB CHEMISTRY METHOD 08/13/2024 8:00 PM [facility] AST (SGOT) 32 10 - 42 unit/L LAB CHEMISTRY METHOD 08/13/2024 8:00 PM [facility] ALT (SGPT) 56 10 - 60 unit/L LAB CHEMISTRY METHOD 08/13/2024 8:00 PM [facility] Alkaline Phosphatase 125(H) 42 - 121 unit/L LAB CHEMISTRY METHOD 08/13/2024 8:00 PM [facility] Total Protein 6.7 6.0 - 8.0 g/dL LAB CHEMISTRY METHOD 08/13/2024 8:00 PM [facility] Albumin 3.8 3.2 - 5.0 g/dL LAB CHEMISTRY METHOD 08/13/2024 8:00 PM [facility] Total Bilirubin 0.7 0.0 - 1.4 mg/dL LAB CHEMISTRY METHOD 08/13/2024 8:00 PM [facility] Blood Venous blood specimen / Unknown Venipuncture / Unknown 08/13/2024 3:16 PM EDT 08/13/2024 3:16 PM EDT us Farrukh Epps MD LAB BLOOD ORDERABLES Final Resu lt [facility] [address] [place] [address], [place] [phone] * MG Mammo Digital Diagnostic w Elio bilat (02/16/2024 10:05 AM EST) Anatomical Region Laterality Modality Breast Bilateral Mammography 02/16/2024 10:0 5 AM EST Impressions 02/16/2024 10:25 AM EST BILATERAL BREASTS: Benign, no evidence of malignancy. Normal interval follow-up is recommended in 12 months. Findings and recommendations were conveyed to the patient via electroencephalogram technologist. BREAST DENSITY: B - There are scattered areas of fibroglandular density. BI-RADS CATEGORY: 2 - BENIGN RECOMMENDATION: Mammography: Diagnostic bilateral mammogram recommended in 1 year. Mammo Location: [facility], [address] [place] [address], [id number], . -------- FINAL REPORT -------- Dictated By: Wes Moran Dictated Date: 02/16/2024 10:05 ET Assigned Physician: Wes Moran Reviewed and Electronically Signed By: Wes Moran Signed Date: 02/16/2024 10:25 ET Workstation ID: [id number] Transcribed By: Self Edit Transcribed Date: 02/16/2024 [...] mammogram recommended in 1 year. Mammo Location: [facility], [address] [place] [address], [address], . -------- FINAL REPORT -------- Dictated By: Wes Moran Dictated Date: 02/16/2024 10:05 ET Assigned Physician: Wes Moran Reviewed and Electronically Signed By: Wes Moran Signed Date: 02/16/2024 10:25 ET Workstation ID: [id number] Transcribed By: Self Edit Transcribed Date: 02/16/2024 10:20 ET Farrukh Epps MD IMG BI PROCEDURES Final Result * Diabetes Foot Exam (10/10/2023) Diabetes: Annual Foot Exam abstracted Historical Provider MD HEALTH MAINTENANCE Final Result * Diabetes Eye Exam (09/21/2023) Pathologist [facility] Diabetes: Annual Retina Eye Exam abstracted Historical Provider HEALTH MAINTENANCE Final Result * Pap Smear (08/20/2022) Pathologist [facility] Pap smear no interpretation , abstracted [facility] Provider HEALTH MAINTENANCE Final Result * Colonoscopy (04/01/2014) Pathologist [facility] Colonoscopy no interpretation , abstracted Anatomical Region Laterality Modality Other [facility] Provider HEALTH MAINTENANCE Final Result * Hepatitis C Screening (10/20/2012) [facility] Hepatitis C Screening abstracted Historical Provider HEALTH MAINTENANCE Final Result from Last 3 Months or Most Recently Relevant to Health Maintenance Insurance [employer] Care Teams Practice Manager Relationship Specialty Start Date End Date Farrukh Epps MD [address] [place] [phone] PCP - General Internal Medicine 09/05/19
--- OUTSIDE RECORDS SUMMARY | 2024-11-15 14:58 | XMS_ITS | Clinical Summary ---
Author Organization [facility] Address [address] [place] [address] Care Team Providers Care Customer Program Specialist Name Role Phone Farrukh Epps MD Primary Care Provider [phone] Allergies Active Allergy Reactions Criticality Noted Date [...] age to complete this topic Care Teams Customer Program Specialist Relationship Specialty Start Date End Date Farrukh Epps MD PCP - General Internal Medicine 09/06/19
== END 2024-11-15 11:48 | disposition home or self-care (01) ==
LOC: HO.PMCPRC 10:55
PROVIDERS: PCP Internal Medicine; Visit Provider Internal Medicine
DX: M96.1 Postlaminectomy syndrome, not elsewhere classified (principal); M54.16 Radiculopathy, lumbar region
CPT/HCPCS: 62323

== ENCOUNTER 2024-12-12 10:44 | Outpatient (AMB) | payer MEDICARE, SELFPAY ==
--- NOTE | 2024-12-12 10:46 | A.OFFVIS_ITS ---
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 Accompanied by: Significant Other Allergies metformin Adverse Reaction (Severe, Verified 12/12/24 10:49) GI upset liraglutide (From Victoza) Adverse Reaction (Intermediate, Verified 12/12/24 10:49) GI upset Medication List - Last Reconciled 12/12/24 by Cherelle Monge LPN atorvastatin 10 mg PO DAILY cholecalciferol (vitamin D3) 1,000 units PO DAILY gabapentin 300 mg PO QID hydrochlorothiazide 25 mg PO DAILY ibuprofen 800 mg PO Q8H PRN insulin glargine (Lantus Solostar U-100 Insulin) 78 - 82 units subcut DAILY insulin lispro (Humalog KwikPen (U-100) Insulin) 15 units subcut 5XD lisinopril 10 mg PO DAILY loratadine 10 mg PO DAILY oxycodone 10 mg PO QID PRN semaglutide (Ozempic) 1 mg subcut QWEEK sertraline 100 mg PO DAILY trazodone 200 mg PO BEDTIME HPI HPI S/P Caudal JAKE: Details: History of Present Illness The patient is a 64-year-old female presenting with chronic pain management issues. The patient reports that the pain management stimulator, which was previously effective, is no longer providing relief, particularly after attempts to target the ankle pain. She describes a sensation of heaviness in her legs and swelling in her ankle, which has been exacerbating her discomfort. The patient has undergone several adjustments to the stimulator settings and has received injections, but these interventions have not resulted in sustained relief. She has cycled through different programs on the stimulator, reaching the third level without significant improvement. The patient expresses concern about the long-term use of cortisone injections due to potential adverse effects on bone health and weight. The patient has a history of receiving cortisone injections three to four times a year, which initially reduced the need for other pain management interventions. However, in the past six months, the effectiveness of these injections has diminished, leading to increased pain levels. The patient is also considering the use of a cane due to increased difficulty in ambulation. Pain Description - Onset: Chronic pain with recent exacerbation after targeting ankle pain with stimulator - Quality: Heaviness in legs, swelling in ankle - Location: Primarily in the legs and ankle - Exacerbating factors: Ineffective stimulator adjustments, diminished response to cortisone injections - Relieving factors: None identified in the conversation - Interference: Affects ambulation and daily activities, considering use of a cane Physical Exam - Appears afebrile. - Alert and oriented. - Mood and affect appropriate. - Follows and participates in conversation appropriately. - Respiratory effort is unlabored. Pain Management - Affect: Pain is impacting mood, causing irritability - Analgesia: Current use of stimulator and cortisone injections, with diminishing effectiveness - Adverse Effects: Concern about long-term cortisone use affecting bone health and weight - Activities of Daily Living: Pain affects ambulation, considering use of a cane - Aberrant Drug Related Behaviors: None reported [facility] Medical History (Updated 12/10/22 @ 13:01 by REX Mack) Arthritis Back pain Insomnia Use of cane as ambulatory aid COVID Anxiety MAK on CPAP Diabetes HTN (hypertension) Lumbar post-laminectomy syndrome Surgical History (Updated 02/07/23 @ 13:39 by Briana Sabillon RN) Hx of carpal tunnel repair S/P placement of nerve stimulator Hx of tubal ligation Hx of colonoscopy History of total right knee replacement History of back surgery Family History Mother PONV (postoperative nausea and vomiting) Social History Patient Tobacco Use Status: Never used Tobacco Second Hand Smoke Exposure: No Current occupational status: disabled 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 Physical Exam Vital Signs: Last Vital Signs Pulse 90 12/12/24 10:47 Resp 16 12/12/24 10:47 BP 130/62 12/12/24 10:47 Pulse Ox 97 12/12/24 10:47 Oxygen Delivery Method Room Air 12/12/24 10:47 BMI result Body Mass Index 45.7 Assessment & Plan Assessment & Plan (1) Lumbar post-laminectomy syndrome: Comment: Status post L4-5 laminectomy/fusion Status post lumbar SCS (Stimwave) Code(s): M96.1 - Postlaminectomy syndrome, not elsewhere classified Category: Medical (2) Lumbar radiculopathy, right: Code(s): M54.16 - Radiculopathy, lumbar region Category: Medical Plan Plan Patient was informed and verbally consented to the use of an ambient scribe for clinic note documentation during this visit. 1. Chronic Pain - Plan to obtain an MRI to assess any new spinal changes that may be contributing to pain exacerbation. - Consideration of a temporary stimulator for the right side to address specific pain areas. - Discussion about reducing cortisone injections due to potential adverse effects, exploring alternative pain management strategies. - Prescription for a cane to aid in ambulation due to increased difficulty walking. Discussion Notes I discussed with the patient the plan to obtain an MRI to evaluate any changes contributing to her pain exacerbation. We considered the use of a temporary stimulator for the right side to target specific pain areas and discussed the potential reduction of cortisone injections due to their long-term adverse effects. I also addressed the need for a cane to assist with ambulation, given her increased difficulty walking. Patient Instructions - Schedule an MRI to check for changes in your condition. - Consider using a temporary stimulator for targeted pain relief. - Limit cortisone injections to avoid long-term side effects. - Use a cane to help with walking if needed. Orders: Orders MR lumbar spine wo con 12/12/24 M96.1 - Postlaminectomy syndrome, not elsewhere classified, M54.16 - Radiculopathy, lumbar region Medications: New cane As directed 1 ea 0RF Coding Level of Care Code Est Pt Level 4 (56501) Diagnoses Lumbar post-laminectomy syndrome M96.1 Lumbar radiculopathy, right M54.16
[2024-12-12 10:47] VITALS: BP 130/62; PULSE 90; RESP 16; O2SAT 97; BMI 45.7
== END 2024-12-12 11:27 | disposition home or self-care (01) ==
LOC: HO.PMC 10:45
PROVIDERS: PCP Internal Medicine; Visit Provider Internal Medicine
DX: M96.1 Postlaminectomy syndrome, not elsewhere classified (principal); M54.16 Radiculopathy, lumbar region
CPT/HCPCS: 99214

== ENCOUNTER → 2024-12-12 10:44 | Outpatient (BNVA) | payer MEDICARE, SELFPAY | PROVIDERS: PCP Internal Medicine; Visit Provider Internal Medicine | DX: M96.1 Postlaminectomy syndrome, not elsewhere classified (principal); M54.16 Radiculopathy, lumbar region | CPT/HCPCS: 99212 ==